=== PATIENT | male | born 1965 | race Caucasian/White ===

== ENCOUNTER 2017-12-11 11:19 | Inpatient (IN) | payer OTHER ==
[~2017-12-11] VITALS: Ht 193 cm; Wt 118.1 kg
[2017-12-11] MEDS ORDERED: VANCOMYCIN PER PHARMACY MC PRN (11:45)
[2017-12-11 11:54] LABS: BASO # 0.1 x10^3/uL (0.0-0.2); BASO % 1 % (0-3); EOS # 0.1 x10^3/uL (0.0-0.7); EOS % 0 % (0-3); HEMATOCRIT 40.7 % (39.0-53.0); HEMOGLOBIN 14.2 g/dL (13.0-17.5); LYMPH # 1.2 x10^3/uL (1.0-4.8); LYMPH % 8 % (24-48); MEAN CORPUSCULAR HEMOGLOBIN 31 pg (25-35); MEAN CORPUSCULAR HGB CONC 35 g/dL (31-37); MEAN CORPUSCULAR VOLUME 88 fL (79-100); MONO # 0.8 x10^3/uL (0.0-1.1); MONO % 5 % (0-9); NEUT # 12.9 x10^3uL (1.8-7.7); NEUT % 86 % (31-73); PLATELET COUNT 199 x10^3/uL (140-400); RED BLOOD COUNT 4.62 x10^6/uL (4.30-5.70); RED CELL DISTRIBUTION WIDTH 13.7 % (11.5-14.5)
--- NOTE | 2017-12-11 11:57 | PHYS DOC ---
Past Medical History Past Medical History: Diabetes-Type II, Hypothyroid, Other Additional Past Medical Histor: muscular dystrophy, restless leg syndrowm Past Surgical History: Other Additional Past Surgical Histo: eye surgeries, calf surgery, left shoulder surgery Additional Information: 1 ppd Alcohol Use: None Drug Use: None Adult General Chief Complaint Chief Complaint: HAND PROBLEM HPI HPI Patient is a 52 year old male who presents with states that yesterday he went to urgent care because a small red pimple-like bump popped up on his right ring finger and there was slight swelling. Patient states that urgent care stated that it was viral and told him to keep it covered. Patient stated that he awoke this morning with right hand swelling and redness all the way up the right ring finger and some swelling that goes up to his wrist slight redness. Patient states it is throbbing. Patient rates an 8 out of 10. Review of Systems Review of Systems Constitutional: Denies fever or chills [] Eyes: Denies change in visual acuity, redness, or eye pain [] HENT: Denies nasal congestion or sore throat [] Respiratory: Denies cough or shortness of breath [] Cardiovascular: No additional information not addressed in HPI [] GI: Denies abdominal pain, nausea, vomiting, bloody stools or diarrhea [] : Denies dysuria or hematuria [] Musculoskeletal: Denies back pain or joint pain [] Integument: Right ring finger wound, redness and swelling. Right hand to wrist swelling 3+. Denies rash or skin lesions [] Neurologic: Denies headache, focal weakness or sensory changes [] Endocrine: Denies polyuria or polydipsia [] All other systems were reviewed and found to be within normal limits, except as documented in this note. Current Medications Current Medications Current Medications Medications (Trade) Dose Ordered Sig/Zonia Start Time Stop Time Status Last Admin Dose Admin Fentanyl Citrate (Fentanyl 2ml Vial) 50 mcg 1X ONCE 12/11/17 12:15 12/11/17 12:34 DC 12/11/17 12:13 50 MCG Morphine Sulfate (Morphine Sulfate) 4 mg 1X ONCE 12/11/17 13:00 12/11/17 13:01 DC 12/11/17 12:59 4 MG Sodium Chloride 1,000 ml @ 1,000 mls/hr 1X ONCE 12/11/17 12:45 12/11/17 13:44 DC 12/11/17 12:59 1,000 MLS/HR Vancomycin HCl (Vanco Per Pharmacy) 1 each PRN DAILY PRN 12/11/17 11:45 UNV Vancomycin HCl 2 gm/Sodium Chloride 500 ml @ 250 mls/hr 1X ONCE 12/11/17 12:45 12/11/17 14:44 DC 12/11/17 13:11 250 MLS/HR Allergies Allergies Allergies Coded Allergies Type Severity Reaction Last Updated Verified No Known Drug Allergies 12/11/17 No Physical Exam Physical Exam Constitutional: Well developed, well nourished, no acute distress, non-toxic appearance. [] HENT: Normocephalic, atraumatic, bilateral external ears normal, oropharynx moist, no oral exudates, nose normal. [] Eyes: PERRLA, EOMI, conjunctiva normal, no discharge. [] Neck: Normal range of motion, no tenderness, supple, no stridor. [] Cardiovascular:Heart rate regular rhythm, no murmur [] Lungs & Thorax: Bilateral breath sounds clear to auscultation [] Abdomen: Bowel sounds normal, soft, no tenderness, no masses, no pulsatile masses. [] Skin: Warm, dry, Right hand erythema, no rash. [] Back: No tenderness, no CVA tenderness. [] Extremities: Right mid palm tenderness, no cyanosis, no clubbing, ROM not intact , Right hand to wrist 3+ edema. [] Neurologic: Alert and oriented X 3, normal motor function, normal sensory function, no focal deficits noted. [] Psychologic: Affect normal, judgement normal, mood normal. [] Current Patient Data Vital Signs Vital Signs Date Time Temp Pulse Resp B/P (MAP) Pulse Ox O2 Delivery O2 Flow Rate FiO2 12/11/17 12:59 18 96 Room Air 12/11/17 11:24 97.6 91 163/83 (109) 97.6 Lab Values Laboratory Tests Test 12/11/17 11:40 White Blood Count 15.0 x10^3/uL (4.0-11.0) H Red Blood Count 4.62 x10^6/uL (4.30-5.70) Hemoglobin 14.2 g/dL (13.0-17.5) Hematocrit 40.7 % (39.0-53.0) Mean Corpuscular Volume 88 fL (79-100) Mean Corpuscular Hemoglobin 31 pg (25-35) Mean Corpuscular Hemoglobin Concent 35 g/dL (31-37) Red Cell Distribution Width 13.7 % (11.5-14.5) Platelet Count 199 x10^3/uL (140-400) Neutrophils (%) (Auto) 86 % (31-73) H Lymphocytes (%) (Auto) 8 % (24-48) L Monocytes (%) (Auto) 5 % (0-9) Eosinophils (%) (Auto) 0 % (0-3) Basophils (%) (Auto) 1 % (0-3) Neutrophils # (Auto) 12.9 x10^3uL (1.8-7.7) H Lymphocytes # (Auto) 1.2 x10^3/uL (1.0-4.8) Monocytes # (Auto) 0.8 x10^3/uL (0.0-1.1) Eosinophils # (Auto) 0.1 x10^3/uL (0.0-0.7) Basophils # (Auto) 0.1 x10^3/uL (0.0-0.2) Segmented Neutrophils % 80 % (35-66) H Band Neutrophils % 8 % (0-9) Lymphocytes % 9 % (24-48) L Monocytes % 3 % (0-10) Platelet Estimate Adequate (ADEQUATE) Sodium Level 138 mmol/L (136-145) Potassium Level 3.4 mmol/L (3.5-5.1) L Chloride Level 100 mmol/L (98-107) Carbon Dioxide Level 29 mmol/L (21-32) Anion Gap 9 (6-14) Blood Urea Nitrogen 12 mg/dL (8-26) Creatinine 1.0 mg/dL (0.7-1.3) Estimated GFR (Cockcroft-Gault) 78.8 Glucose Level 217 mg/dL (70-99) H Lactic Acid Level 2.2 mmol/L (0.4-2.0) H Calcium Level 9.2 mg/dL (8.5-10.1) Laboratory Tests 12/11/17 11:40 Laboratory Tests 12/11/17 11:40 Microbiology 12/11/17 Blood Culture - Preliminary, Resulted NO GROWTH AFTER 4 DAYS EKG EKG [] Radiology/Procedures Radiology/Procedures [] Impressions: [facility] [address] [place] [address] IMAGING REPORT Signed PATIENT: LEAH VELIZ ACCOUNT: [id number] : 1965 LOCATION: ER AGE: 52 SEX: M EXAM STATUS: REG ER ORD. PHYSICIAN: JALEESA COOPER APRN REASON: INFECTION PROCEDURE: HAND RIGHT 3V EXAM: Right hand, 3 views. HISTORY: Swelling. COMPARISON: None. FINDINGS: 3 views of the right hand are obtained. There is soft tissue swelling involving the hand, primarily the ring finger. There is no fracture, dislocation or subluxation. No foreign body is seen. IMPRESSION: Right hand soft tissue swelling, primarily involving the ring finger. Electronically signed by: Leticia Townsend MD (12/11/2017 12:11 PM) [facility] DICTATED and SIGNED BY: LETICIA TOWNSEND MD DATE: 12/11/17 1211 Course & Med Decision Making Course & Med Decision Making Patient is a 52 year old male who presents with states that yesterday he went to urgent care because a small red pimple-like bump popped up on his right ring finger and there was slight swelling. Patient states that urgent care stated that it was viral and told him to keep it covered. Patient stated that he awoke this morning with right hand swelling and redness all the way up the right ring finger and some swelling that goes up to his wrist slight redness. Patient states it is throbbing. Patient rates an 8 out of 10. He states his last tetanus was 2 years ago. Patient cannot bend his third fourth or fifth finger due to swelling and pain. Patient's right ring finger is red and swollen and there is no drainage coming from the small puncture area on the finger where the bleeding first developed. Patient afebrile. Patient states the hand is throbbing and he does have pain with palpation to the mid palm. Radial pulses strong and present. She has no known drug allergies he is a diabetic. Patient has history of muscular dystrophy, diabetes, restless leg, hypothyroidism and some arthritis. He denies any nausea or vomiting. Patient denies any numbness or tingling in that hand. Blood cultures and blood work are sent and patient started on vancomycin IV. Hand xray shows Right hand soft tissue swelling, primarily involving the ring finger. Patient will be transferred to for suspected developing of flexor tenosynovitis. I called to have this patient transferred because we of suspected developing of flexor tenosynovitis. hand surgeon refused the patient and states that our Orthopedic doctor can handle this patient and if the patient truly has flexor tenosynovitis than we should not delay care and the patient should go to surgery. The patient is in extreme pain and has been given Fentanyl 50mcg and Morphine 4 mg. Patient is still in pain and Dr Roblero has ordered Ketamine for the patient. Dr Bucio has seen the patient in the ED. I have admitted the patient to Dr Moeller and consulted Infectious Disease. torri i saw and eval'd this patient. evidence of likely flexor tenosynovitis. as per above. [] Dragon Disclaimer Dragon Disclaimer This electronic medical record was generated, in whole or in part, using a voice recognition dictation system. Departure Departure Impression: Primary Impression: Cellulitis of hand Disposition: ADMITTED INPATIENT Admitting Physician: Xie. Pierce Condition: STABLE Referrals: NO PCP (PCP) JALEESA COOPER APRN Dec 11, 2017 11:57 TATI ROBLERO MD Dec 15, 2017 18:22
[2017-12-11 12:03] LABS: CALCIUM 9.2 mg/dL (8.5-10.1); GFR 78.8; POTASSIUM 3.4 mmol/L (3.5-5.1)
[2017-12-11] MEDS ORDERED: fentaNYL PF VIAL 100 MCG/2 ML VIAL IV ONE (12:15)
--- NOTE | 2017-12-11 12:15 | RAD ---
EXAM: Right hand, 3 views. HISTORY: Swelling. COMPARISON: None. FINDINGS: 3 views of the right hand are obtained. There is soft tissue swelling involving the hand, primarily the ring finger. There is no fracture, dislocation or subluxation. No foreign body is seen. IMPRESSION: Right hand soft tissue swelling, primarily involving the ring finger. Electronically signed by: Leticia Lira MD (12/11/2017 12:11 PM) [place] [id number]
[2017-12-11] MEDS ORDERED: VANCOMYCIN 2 GM in IV NORMAL SALINE 500ML BAG 500 ML IV ONE (12:45)
[2017-12-11] MEDS ORDERED: IV NORMAL SALINE 1000ML BAG 1,000 ML IV ONE (12:45)
[2017-12-11 12:53] LABS: % BANDS 8 % (0-9); % LYMPHS 9 % (24-48); % MONOS 3 % (0-10); % SEGS 80 % (35-66)
[2017-12-11 12:54] LABS: PLT ESTIMATE ADEQUATE (ADEQUATE)
[2017-12-11] MEDS ORDERED: MORPHINE SULFATE 4 MG/ML VIAL. IV ONE (13:00)
[2017-12-11] MEDS ORDERED: KETAMINE HCL 50 MG/5 ML SYRINGE IV ONE (13:45)
[2017-12-11] MEDS ORDERED: ONDANSETRON PF 4 MG/2 ML VIAL. IV PRN ×4 (14:00→16:30)
[2017-12-11] MEDS ORDERED: IV RINGERS,LACTATED 1000ML 1,000 ML IV SCH ×2 (14:06→16:16)
[2017-12-11] MEDS ORDERED: LABETALOL 20 MG/4 ML DISP.SYRIN. IVP PRN (14:15)
[2017-12-11] MEDS ORDERED: fentaNYL PF VIAL 100 MCG/2 ML VIAL IV PRN ×3 (14:15→16:30)
[2017-12-11] MEDS ORDERED: PIP/TAZO PER PHARMACY MC PRN (14:15)
[2017-12-11] MEDS ORDERED: VANCOMYCIN 2 GM in IV NORMAL SALINE 500ML BAG 500 ML IV SCH (14:15)
[2017-12-11] MEDS ORDERED: ACETAMINOPHEN 325 MG TABLET. PO PRN (14:15)
[2017-12-11] MEDS ORDERED: DEXTROSE 50% 25 GM / 50ML DISP.SYRIN. IV PRN (14:15)
[2017-12-11] MEDS ORDERED: MORPHINE SULFATE 2 MG/ML VIAL. IV PRN ×3 (14:15→16:30)
[2017-12-11] MEDS ORDERED: LIDOCAINE 1% PF 2 ML VIAL. ID PRN ×2 (14:15→16:30)
[2017-12-11] MEDS ORDERED: PROCHLORPERAZINE 10 MG/2 ML VIAL. IV PRN ×2 (14:15→16:30)
[2017-12-11] MEDS ORDERED: DOCUSATE SODIUM 100 MG CAPSULE. PO PRN (14:15)
--- NOTE | 2017-12-11 14:25 | PDOC1 ---
History and Physical Date of Admission Date of Admission 12/11/17 Identification/Chief Complaint Chief Complaint rt finger pain Source Source: Chart review, Patient History of Present Illness History of Present Illness HPI HPI Patient is a 52 year old male came to ER for right 4th finger pain for 1d. pt said [facility]. He noticed his rt ring finger had a small white pimple like bump yesterday. He used a lancet of glucometer to poke it. The finger was swollen, mild ,mild pain. He went to urgent care stated that it was viral and told him to keep it covered with topical abx. Today, he noticed the finger is much swollen and the palm is swollen too, red, fingers with burning pain tenderness. the pain is 8/10,. cannot move the finger. Denies fever, chills, sob, chest pain, N/V, diarrhea. has some superficial skin wound bl legs, getting better. Past Medical History Endocrine: Diabetes, Hypothyroidism Past Surgical History Past Surgical History eye surgeries, calf surgery, left shoulder surgery Family History Family History: Hypertension Social History Smoke: <1 pack per day ALCOHOL: occassional Drugs: None Current Problem List Problem List Problems Medical Problems: (1) Cellulitis of hand Status: Acute Current Medications Current Medications Current Medications Medications (Trade) Dose Ordered Sig/Zonia Start Time Stop Time Status Last Admin Dose Admin Fentanyl Citrate (Fentanyl 2ml Vial) 50 mcg PRN Q5MIN PRN 12/11/17 14:15 12/12/17 14:14 Hydromorphone HCl (Dilaudid) 0.5 mg PRN Q10MIN PRN 12/11/17 14:15 12/12/17 14:14 Ketamine HCl (Ketamine) 20 mg 1X ONCE 12/11/17 13:45 12/11/17 13:46 DC 12/11/17 13:58 20 MG Lidocaine HCl (Xylocaine-Mpf 1% 2ml Vial) 2 ml 1X PRN PRN 12/11/17 14:15 12/12/17 14:14 Morphine Sulfate (Morphine Sulfate) 1 mg PRN Q10MIN PRN 12/11/17 14:15 12/12/17 14:14 Ondansetron HCl (Zofran) 4 mg PRN Q6HRS PRN 12/11/17 14:15 12/12/17 14:14 Prochlorperazine Edisylate (Compazine) 5 mg PACU PRN PRN 12/11/17 14:15 12/12/17 14:14 Ringer's Solution 1,000 ml @ 30 mls/hr Q24H 12/11/17 14:06 12/12/17 02:05 Sodium Chloride 1,000 ml @ 80 mls/hr [id number] 12/11/17 14:30 12/12/17 14:29 Vancomycin HCl (Vanco Per Pharmacy) 1 each PRN DAILY PRN 12/11/17 11:45 UNV Vancomycin HCl 2 gm/Sodium Chloride 500 ml @ 250 mls/hr 1X ONCE 12/11/17 12:45 12/11/17 14:44 12/11/17 13:11 250 MLS/HR Allergies Allergies Allergies Coded Allergies Type Severity Reaction Last Updated Verified No Known Drug Allergies 12/11/17 No ROS Review of System CONSTITUTIONAL: No fever or chills EYES: No recent changes SKIN: No rash or itching CARDIOVASCULAR: No chest pain, syncope, palpitations, or edema RESPIRATORY: No SOB or cough GASTROINTESTINAL: No nausea, vomiting or abdominal pain NEUROLOGICAL: No headaches or weakness ENDOCRINE: No cold or heat intolerance GENITOURINARY: No urgency or frequency of urination MUSCULOSKELETAL: No back pain or joint pain LYMPHATICS: No enlarged lymph nodes PSYCHIATRIC: No anxiety or depression Physical Exam Physical Exam GEN.: No apparent distress. Alert and oriented. HEENT: Head is normocephalic, atraumatic NECK: Supple. LUNGS: Clear to auscultation. HEART: RRR, S1, S2 present. Peripheral pulses intact ABDOMEN: Soft, nontender. Positive bowel sounds. EXTREMITIES: Without any cyanosis. rt palm and the ring finger swollen, redness, severe tenderness. + pulse. cannot move the right 4th finger himself. NEUROLOGIC: Normal speech, normal tone PSYCHIATRIC: Normal affect, normal mood. SKIN: No ulcerations Vitals Vitals Vital Signs Date Time Temp Pulse Resp B/P (MAP) Pulse Ox O2 Delivery O2 Flow Rate FiO2 12/11/17 12:59 18 96 Room Air 12/11/17 11:24 97.6 91 163/83 (109) 97.6 Labs Labs Laboratory Tests Test 12/11/17 11:40 White Blood Count 15.0 x10^3/uL (4.0-11.0) Red Blood Count 4.62 x10^6/uL (4.30-5.70) Hemoglobin 14.2 g/dL (13.0-17.5) Hematocrit 40.7 % (39.0-53.0) Mean Corpuscular Volume 88 fL (79-100) Mean Corpuscular Hemoglobin 31 pg (25-35) Mean Corpuscular Hemoglobin Concent 35 g/dL (31-37) Red Cell Distribution Width 13.7 % (11.5-14.5) Platelet Count 199 x10^3/uL (140-400) Neutrophils (%) (Auto) 86 % (31-73) Lymphocytes (%) (Auto) 8 % (24-48) Monocytes (%) (Auto) 5 % (0-9) Eosinophils (%) (Auto) 0 % (0-3) Basophils (%) (Auto) 1 % (0-3) Neutrophils # (Auto) 12.9 x10^3uL (1.8-7.7) Lymphocytes # (Auto) 1.2 x10^3/uL (1.0-4.8) Monocytes # (Auto) 0.8 x10^3/uL (0.0-1.1) Eosinophils # (Auto) 0.1 x10^3/uL (0.0-0.7) Basophils # (Auto) 0.1 x10^3/uL (0.0-0.2) Segmented Neutrophils % 80 % (35-66) Band Neutrophils % 8 % (0-9) Lymphocytes % 9 % (24-48) Monocytes % 3 % (0-10) Platelet Estimate Adequate (ADEQUATE) Sodium Level 138 mmol/L (136-145) Potassium Level 3.4 mmol/L (3.5-5.1) Chloride Level 100 mmol/L (98-107) Carbon Dioxide Level 29 mmol/L (21-32) Anion Gap 9 (6-14) Blood Urea Nitrogen 12 mg/dL (8-26) Creatinine 1.0 mg/dL (0.7-1.3) Estimated GFR (Cockcroft-Gault) 78.8 Glucose Level 217 mg/dL (70-99) Lactic Acid Level 2.2 mmol/L (0.4-2.0) Calcium Level 9.2 mg/dL (8.5-10.1) Laboratory Tests Test 12/11/17 11:40 White Blood Count 15.0 x10^3/uL (4.0-11.0) Red Blood Count 4.62 x10^6/uL (4.30-5.70) Hemoglobin 14.2 g/dL (13.0-17.5) Hematocrit 40.7 % (39.0-53.0) Mean Corpuscular Volume 88 fL (79-100) Mean Corpuscular Hemoglobin 31 pg (25-35) Mean Corpuscular Hemoglobin Concent 35 g/dL (31-37) Red Cell Distribution Width 13.7 % (11.5-14.5) Platelet Count 199 x10^3/uL (140-400) Neutrophils (%) (Auto) 86 % (31-73) Lymphocytes (%) (Auto) 8 % (24-48) Monocytes (%) (Auto) 5 % (0-9) Eosinophils (%) (Auto) 0 % (0-3) Basophils (%) (Auto) 1 % (0-3) Neutrophils # (Auto) 12.9 x10^3uL (1.8-7.7) Lymphocytes # (Auto) 1.2 x10^3/uL (1.0-4.8) Monocytes # (Auto) 0.8 x10^3/uL (0.0-1.1) Eosinophils # (Auto) 0.1 x10^3/uL (0.0-0.7) Basophils # (Auto) 0.1 x10^3/uL (0.0-0.2) Segmented Neutrophils % 80 % (35-66) Band Neutrophils % 8 % (0-9) Lymphocytes % 9 % (24-48) Monocytes % 3 % (0-10) Platelet Estimate Adequate (ADEQUATE) Sodium Level 138 mmol/L (136-145) Potassium Level 3.4 mmol/L (3.5-5.1) Chloride Level 100 mmol/L (98-107) Carbon Dioxide Level 29 mmol/L (21-32) Anion Gap 9 (6-14) Blood Urea Nitrogen 12 mg/dL (8-26) Creatinine 1.0 mg/dL (0.7-1.3) Estimated GFR (Cockcroft-Gault) 78.8 Glucose Level 217 mg/dL (70-99) Lactic Acid Level 2.2 mmol/L (0.4-2.0) Calcium Level 9.2 mg/dL (8.5-10.1) VTE Prophylaxis Ordered VTE Prophylaxis Devices: Yes VTE Pharmacological Prophylaxi: No Assessment/Plan Assessment/Plan rt 4th finger cellulitis sepsis chronic hypokalemia dm2 hypothyroidism muscular dystrophy restless leg syndrome elevated lactate tobaccoism plan: RN in ER told me [facility] refused to take the pt. Dr. Sanchez will take pt to OR today. NPO IVF, REPLete K need verify home meds lantus 20u qhs for now, ssi labetolol prn for htn dvt ppx tmr if ok with sx pain control with both po and iv meds prn zeus garrett for now, fu bx, ID consult STEVEN BURNETTE MD Dec 11, 2017 14:25
[2017-12-11] MEDS ORDERED: IV NORMAL SALINE 1000ML BAG 1,000 ML IV SCH (14:30)
[2017-12-11] MEDS ORDERED: PIPERACILLIN/TAZOBACTAM 3.375 GM in IV NORMAL SALINE 50ML 50 ML IV ONE (14:45)
[2017-12-11] MEDS: HYDROmorphone 2 MG/ML VIAL IV PRN ×3 (14:56→20:00)
[2017-12-11] MEDS: VANCOMYCIN PER PHARMACY MC PRN ×2 (15:53→16:01)
[2017-12-11] MEDS ORDERED: METF850T8 PO (15:57)
[2017-12-11] MEDS ORDERED: LEVO100T5 PO (15:57)
[2017-12-11] MEDS ORDERED: GLIP5TAB10 PO (15:57)
[2017-12-11] MEDS ORDERED: HYDR25TA PO (15:57)
[2017-12-11] MEDS ORDERED: NPH,100V5 SQ (15:57)
[2017-12-11] MEDS ORDERED: MELO15TA23 PO (15:57)
[2017-12-11] MEDS ORDERED: CYCL10TA2 PO (15:57)
[2017-12-11] MEDS ORDERED: POTA10TA12 PO (15:57)
[2017-12-11] MEDS ORDERED: AMIT150T PO (15:57)
[2017-12-11] MEDS ORDERED: ATOR10TA60 PO ×2 (15:57)
[2017-12-11] MEDS ORDERED: ACET250T2 PO (15:57)
[2017-12-11] MEDS ORDERED: HYDR50TA PO (15:58)
[2017-12-11 16:00] VITALS: BP 132/74
[2017-12-11] MEDS ORDERED: HYDROmorphone 2 MG/ML VIAL IV PRN (16:30)
[2017-12-11] MEDS ORDERED: fentaNYL PF VIAL 100 MCG/2 ML VIAL ONE ×3 (16:44→18:58)
[2017-12-11] MEDS: fentaNYL PF VIAL 100 MCG/2 ML VIAL IV PRN ×4 (16:48→19:26)
[2017-12-11] MEDS: INSULIN LISPRO 300 UNITS/3 ML INSULN.PEN. SQ SCH (17:00)
[2017-12-11] MEDS ORDERED: MIDAZOLAM HCL/PF 2 MG/2 ML VIAL. ONE (17:19)
[2017-12-11] MEDS ORDERED: DEXAMETHASONE SOD PHOS 20 MG/5 ML VIAL. ONE (17:25)
[2017-12-11] MEDS ORDERED: KETOROLAC 30 MG/ML INJ FOR OR. INJ ONE (17:25)
[2017-12-11] MEDS ORDERED: LIDOCAINE 2% PF Vial for OR 5 ML VIAL. ONE (17:25)
[2017-12-11] MEDS ORDERED: PROPOFOL 20 ML IV ONE (17:25)
[2017-12-11] MEDS ORDERED: ONDANSETRON PF 4 MG/2 ML VIAL. ONE (17:25)
[2017-12-11] MEDS ORDERED: PIPERACILLIN/TAZOBACTAM 4.5 GM in IV NORMAL SALINE 100ML 100 ML IV SCH (18:00)
[2017-12-11] MEDS ORDERED: HYDROmorphone 2 MG/ML VIAL ONE (18:59)
[2017-12-11] MEDS ORDERED: PROCHLORPERAZINE 10 MG/2 ML VIAL. ONE (18:59)
[2017-12-11 20:15] VITALS: BP 124/72
[2017-12-11] MEDS: VANCOMYCIN 1.5 GM in IV NORMAL SALINE 500ML BAG 500 ML IV SCH (20:21)
[2017-12-11] MEDS: LACTOBACILLUS RHAMNOSUS GG 1 CAPSULE. PO SCH (20:21)
[2017-12-11] MEDS: oxyCODONE/APAP 5/325 1 TAB TABLET PO PRN (20:53)
[2017-12-11] MEDS ORDERED: INSULIN GLARGINE 300 UNITS/3 ML INSULN.PEN. SQ SCH (21:00)
--- NOTE | 2017-12-11 21:19 | PDOC4 ---
Operative Note Operative Note Date of surgery: 12/11/2017 Preoperative diagnosis: Right ring finger flexor tenosynovitis Postoperative diagnosis: Same Procedure procedure: Irrigation debridement right ring finger flexor tenosynovitis allograft surgeon: Fortunato Anesthesia: Gen. Estimated blood loss: Minimal Intraoperative cultures sent of purulent drainage from tendon sheath Complications: None Operative indications: Please see my detailed consultation note for his history and my explanation to the patient about the possible rapid spread of infection in the flexor tendon sheath and the need for urgent surgical treatment to explore and wash this area out with cultures and potentially leave it open somewhat with a drain. Possible additional procedures may be required due to the ongoing resolution the infection and he could possibly have scarring pain stiffness and difficulty with function due to damage sustained with the infection inside the tendon sheath. All his questions were answered he wishes to proceed with surgical evaluation and treatment Operative text: Patient was identified procedure verified patient placed in the supine position on the operating table. After adequate amounts of general anesthesia were administered the right upper extremity was prepped and draped in standard sterile fashion with a tourniquet on the upper arm which was not inflated. After timeout was performed patient procedure identified and verified , and incision was made over the distal palmar crease overlying the ring finger flexor tendon sheath. The tendon sheath was opened and purulent drainage was immediately expressed and cultured. I also made a diagonal incision leading from the original area where he reported the pimple toward the PIP joint and the distal flexor tendon sheath was likewise opened and noted to display purulent drainage as well thorough irrigation was carried out at both locations and a 5 Tamazight feeding tube was placed in the tendon sheath to further allow thorough irrigation throughout the extent of the affected tendon sheath. The feeding tube remained in place loose closure was obtained of both incisions with nylon suture sterile dressings were applied the feeding tube was controlled within the dressings Rudy wrap was applied. He was returned to recovery room in stable condition having tolerated procedure well MIRELA SALCIDO MD Dec 11, 2017 21:19
[2017-12-11] MEDS: NICOTINE POLACRILEX 2MG GUM PACKAGE of 12. BC PRN (22:22)
[2017-12-11] MEDS: MORPHINE SULFATE 4 MG/ML VIAL. IV PRN (22:33)
[2017-12-11] MEDS: PIPERACILLIN/TAZOBACTAM 3.375 GM in IV NORMAL SALINE 50ML 50 ML IV SCH (22:34)
[2017-12-11] MEDS ORDERED: LORazepam 1 MG TABLET PO PRN (22:45)
[2017-12-11 23:00] VITALS: BP 117/61
[2017-12-12] MEDS: MORPHINE SULFATE 4 MG/ML VIAL. IV PRN ×7 (00:38→20:20)
[2017-12-12] MEDS: traMADol 50 MG TABLET PO PRN ×2 (00:38→08:13)
[2017-12-12] MEDS: NICOTINE POLACRILEX 2MG GUM PACKAGE of 12. BC PRN ×4 (00:39→20:19)
[2017-12-12] MEDS: PIPERACILLIN/TAZOBACTAM 3.375 GM in IV NORMAL SALINE 50ML 50 ML IV SCH ×4 (02:15→20:19)
[2017-12-12 03:00] VITALS: BP 110/59
[2017-12-12] MEDS: VANCOMYCIN 1.5 GM in IV NORMAL SALINE 500ML BAG 500 ML IV SCH (04:32)
[2017-12-12] MEDS: oxyCODONE/APAP 5/325 1 TAB TABLET PO PRN ×3 (04:40→18:54)
[2017-12-12 06:26] LABS: BASO % 0 % (0-3); EOS % 0 % (0-3); HEMATOCRIT 38.3 % (39.0-53.0); HEMOGLOBIN 12.9 g/dL (13.0-17.5); LYMPH # 0.6 x10^3/uL (1.0-4.8); LYMPH % 5 % (24-48); MEAN CORPUSCULAR HEMOGLOBIN 30 pg (25-35); MEAN CORPUSCULAR HGB CONC 34 g/dL (31-37); MEAN CORPUSCULAR VOLUME 89 fL (79-100); MONO # 0.5 x10^3/uL (0.0-1.1); MONO % 4 % (0-9); NEUT # 10.5 x10^3uL (1.8-7.7); NEUT % 90 % (31-73); PLATELET COUNT 161 x10^3/uL (140-400); RED CELL DISTRIBUTION WIDTH 13.5 % (11.5-14.5); WHITE BLOOD COUNT 11.6 x10^3/uL (4.0-11.0)
[2017-12-12 06:36] LABS: CALCIUM 8.2 mg/dL (8.5-10.1); CREATININE 1.1 mg/dL (0.7-1.3); GFR 70.6; POTASSIUM 3.9 mmol/L (3.5-5.1)
[2017-12-12 07:00] VITALS: BP 125/73
[2017-12-12] MEDS: INSULIN LISPRO 300 UNITS/3 ML INSULN.PEN. SQ SCH ×3 (08:09→16:59)
[2017-12-12] MEDS: LACTOBACILLUS RHAMNOSUS GG 1 CAPSULE. PO SCH ×2 (08:12→20:19)
--- NOTE | 2017-12-12 08:45 | CONS ---
DATE OF CONSULTATION: 12/11/2017 REQUESTING PHYSICIAN: [facility]. REASON FOR CONSULTATION: Right hand infection. HISTORY OF PRESENT ILLNESS: The patient is a 52-year-old male who developed what seemed to be a pimple on his right ring finger volar aspect and had some swelling. He went to urgent care, who apparently stated that this was a viral condition and told him to keep it covered. He states that when he awoke this morning, he had more severe right hand swelling, redness all the way up his right ring finger, difficulty moving it and swelling in his wrist with severe pain about 8/10, throbbing in nature. He said that he popped the pimple with one of his diabetic lancets and some pus came out at the time. PAST MEDICAL HISTORY: Significant for type 2 diabetes, hypothyroidism, muscular dystrophy, restless legs. PAST SURGICAL HISTORY: Left shoulder surgery, surgery on one of his legs and previous eye surgery. ALLERGIES: He has no known drug allergies. MEDICATIONS: List is reviewed. SOCIAL HISTORY: Denies alcohol or drug use. He is a 1 pack per day smoker. REVIEW OF SYSTEMS: Denies any fever or chills. He does note the severe pain, stiffness, swelling in his finger; swelling in his right hand; and the drainage with rapidly increasing severe pain. PHYSICAL EXAMINATION: GENERAL: He is afebrile. EXTREMITIES: Examination of the right hand reveals severe swelling, nearly a sausage digit appearance of the right ring finger. He is very tender on palpation over the flexor tendon sheath even into the palm. He can fully move the remaining index, long and small fingers on the right hand, as well as his thumb. Severe pain with any movement of the ring finger, however, he does have an area that appears to be scabbed over, where he had poked on the volar ulnar aspect over the middle phalange. He has normal examination of the contralateral hand. No tenderness on palpation over the wrist. No clunk or instability. Full range of motion. Normal alignment of bilateral shoulders, elbows and wrists. IMAGING: X-rays of the right hand showed no evidence of any joint abnormality or osteomyelitis. Laboratory examination significant for a white blood cell count of 15. IMPRESSION: Right ring finger flexor tenosynovitis and right hand infection. TREATMENT PLAN: I went over with him that I planned surgery today as available in the operating room and explained that the tendon sheaths when infected can result in rapid spread of infection and I consider this an urgent matter; I therefore, kept him n.p.o. for later surgery and explained that while we will wash this area out, it may take a long time to resolve with antibiotics and helping the body deflate it off itself. In the meantime, he may have struggles with stiffness or scarring with the flexor tendon sheath due to the infectious damage, possibility of additional procedures as well. All his questions were answered. He wishes to proceed with surgical evaluation and treatment, which will again occur today. MIRELA SALCIDO MD DR: ANNAMARIE/jf JOB#: [id number] / [id number]
--- NOTE | 2017-12-12 09:25 | PDOC ---
Infectious Disease Note Vital Sign Vital Signs Vital Signs Date Time Temp Pulse Resp B/P (MAP) Pulse Ox O2 Delivery O2 Flow Rate FiO2 12/12/17 09:01 18 94 Room Air 8.0 12/12/17 07:00 97.9 75 125/73 (90) 97.9 Labs Lab Laboratory Tests Test 12/11/17 11:40 12/11/17 16:08 12/11/17 21:41 12/12/17 05:10 White Blood Count 15.0 x10^3/uL (4.0-11.0) 11.6 x10^3/uL (4.0-11.0) Red Blood Count 4.62 x10^6/uL (4.30-5.70) 4.30 x10^6/uL (4.30-5.70) Hemoglobin 14.2 g/dL (13.0-17.5) 12.9 g/dL (13.0-17.5) Hematocrit 40.7 % (39.0-53.0) 38.3 % (39.0-53.0) Mean Corpuscular Volume 88 fL (79-100) 89 fL (79-100) Mean Corpuscular Hemoglobin 31 pg (25-35) 30 pg (25-35) Mean Corpuscular Hemoglobin Concent 35 g/dL (31-37) 34 g/dL (31-37) Red Cell Distribution Width 13.7 % (11.5-14.5) 13.5 % (11.5-14.5) Platelet Count 199 x10^3/uL (140-400) 161 x10^3/uL (140-400) Neutrophils (%) (Auto) 86 % (31-73) 90 % (31-73) Lymphocytes (%) (Auto) 8 % (24-48) 5 % (24-48) Monocytes (%) (Auto) 5 % (0-9) 4 % (0-9) Eosinophils (%) (Auto) 0 % (0-3) 0 % (0-3) Basophils (%) (Auto) 1 % (0-3) 0 % (0-3) Neutrophils # (Auto) 12.9 x10^3uL (1.8-7.7) 10.5 x10^3uL (1.8-7.7) Lymphocytes # (Auto) 1.2 x10^3/uL (1.0-4.8) 0.6 x10^3/uL (1.0-4.8) Monocytes # (Auto) 0.8 x10^3/uL (0.0-1.1) 0.5 x10^3/uL (0.0-1.1) Eosinophils # (Auto) 0.1 x10^3/uL (0.0-0.7) 0.0 x10^3/uL (0.0-0.7) Basophils # (Auto) 0.1 x10^3/uL (0.0-0.2) 0.0 x10^3/uL (0.0-0.2) Segmented Neutrophils % 80 % (35-66) Band Neutrophils % 8 % (0-9) Lymphocytes % 9 % (24-48) Monocytes % 3 % (0-10) Platelet Estimate Adequate (ADEQUATE) Sodium Level 138 mmol/L (136-145) 140 mmol/L (136-145) Potassium Level 3.4 mmol/L (3.5-5.1) 3.9 mmol/L (3.5-5.1) Chloride Level 100 mmol/L (98-107) 104 mmol/L (98-107) Carbon Dioxide Level 29 mmol/L (21-32) 28 mmol/L (21-32) Anion Gap 9 (6-14) 8 (6-14) Blood Urea Nitrogen 12 mg/dL (8-26) 15 mg/dL (8-26) Creatinine 1.0 mg/dL (0.7-1.3) 1.1 mg/dL (0.7-1.3) Estimated GFR (Cockcroft-Gault) 78.8 70.6 Glucose Level 217 mg/dL (70-99) 138 mg/dL (70-99) Lactic Acid Level 2.2 mmol/L (0.4-2.0) Calcium Level 9.2 mg/dL (8.5-10.1) 8.2 mg/dL (8.5-10.1) Glucose (Fingerstick) 100 mg/dL (70-99) 285 mg/dL (70-99) Test 12/12/17 07:27 Glucose (Fingerstick) 140 mg/dL (70-99) Objective Assessment Right ringer finger tenosynovitis - s/p I and D 12/11 Leukocytosis better but did receive Dexamethasone 12/11 H/o MRSA Muscular dystrophy Plan Plan of Care Cont Zosyn D/c vanc and dose Zyvox. At risk for BRIA with high dose Vanc D/c Tramadol F/u labs and cults D/w Dr. Bucio Thank you # [id number] ROSA KNOX MD Dec 12, 2017 09:25
[2017-12-12 11:00] VITALS: BP 131/70
[2017-12-12] MEDS: LINEZOLID 600 MG TABLET PO SCH ×2 (11:10→20:19)
--- NOTE | 2017-12-12 11:58 | PDOC ---
PROGRESS NOTES Chief Complaint Chief Complaint rt 4th finger tenosynovitis s/p i an d on 12/11 sepsis chronic hypokalemia dm2 hypothyroidism muscular dystrophy restless leg syndrome elevated lactate tobaccoism plan: fu with ortho, ID pt required regular diet, ok for now given sugar not very high IVF decrease to 75cc/h, dc tmr cont home meds dc lantus 20u qhs for now, ssi, on glipizide labetolol prn for htn dvt ppx tmr if ok with sx pain control with both po and iv meds prn vanco, zosyn for now, fu bx, ID consulted, change to zyvox, and zosyn, fu cx. nicotine patch prn, gum prn. History of Present Illness History of Present Illness ROS: no fever, chills, sob or chest pain got i and d on 12/11 has a drain pain still, slightly better, but can more the finger now Vitals Vitals Vital Signs Date Time Temp Pulse Resp B/P (MAP) Pulse Ox O2 Delivery O2 Flow Rate FiO2 12/12/17 11:00 98.0 97 18 131/70 (90) 96 Room Air 98.0 12/12/17 10:28 8.0 Physical Exam Physical Exam rt hand has dressing on, drain, can move fingers, still tenderness. General: Alert, Oriented X3, Cooperative Heart: Regular rate, Normal S1, Normal S2 Lungs: Clear Abdomen: Normal bowel sounds, Soft Extremities: No clubbing, No cyanosis Skin: No rashes Labs LABS Laboratory Tests Test 12/11/17 16:08 12/11/17 21:41 12/12/17 05:10 12/12/17 07:27 Glucose (Fingerstick) 100 mg/dL (70-99) 285 mg/dL (70-99) 140 mg/dL (70-99) White Blood Count 11.6 x10^3/uL (4.0-11.0) Red Blood Count 4.30 x10^6/uL (4.30-5.70) Hemoglobin 12.9 g/dL (13.0-17.5) Hematocrit 38.3 % (39.0-53.0) Mean Corpuscular Volume 89 fL (79-100) Mean Corpuscular Hemoglobin 30 pg (25-35) Mean Corpuscular Hemoglobin Concent 34 g/dL (31-37) Red Cell Distribution Width 13.5 % (11.5-14.5) Platelet Count 161 x10^3/uL (140-400) Neutrophils (%) (Auto) 90 % (31-73) Lymphocytes (%) (Auto) 5 % (24-48) Monocytes (%) (Auto) 4 % (0-9) Eosinophils (%) (Auto) 0 % (0-3) Basophils (%) (Auto) 0 % (0-3) Neutrophils # (Auto) 10.5 x10^3uL (1.8-7.7) Lymphocytes # (Auto) 0.6 x10^3/uL (1.0-4.8) Monocytes # (Auto) 0.5 x10^3/uL (0.0-1.1) Eosinophils # (Auto) 0.0 x10^3/uL (0.0-0.7) Basophils # (Auto) 0.0 x10^3/uL (0.0-0.2) Sodium Level 140 mmol/L (136-145) Potassium Level 3.9 mmol/L (3.5-5.1) Chloride Level 104 mmol/L (98-107) Carbon Dioxide Level 28 mmol/L (21-32) Anion Gap 8 (6-14) Blood Urea Nitrogen 15 mg/dL (8-26) Creatinine 1.1 mg/dL (0.7-1.3) Estimated GFR (Cockcroft-Gault) 70.6 Glucose Level 138 mg/dL (70-99) Calcium Level 8.2 mg/dL (8.5-10.1) Assessment and Plan Assessmemt and Plan Problems Medical Problems: (1) Cellulitis of hand Status: Acute Comment Review of Relevant I have reviewed the following items chema (where applicable) has been applied. Labs Laboratory Tests Test 12/11/17 11:40 12/11/17 16:08 12/11/17 21:41 12/12/17 05:10 White Blood Count 15.0 x10^3/uL (4.0-11.0) 11.6 x10^3/uL (4.0-11.0) Red Blood Count 4.62 x10^6/uL (4.30-5.70) 4.30 x10^6/uL (4.30-5.70) Hemoglobin 14.2 g/dL (13.0-17.5) 12.9 g/dL (13.0-17.5) Hematocrit 40.7 % (39.0-53.0) 38.3 % (39.0-53.0) Mean Corpuscular Volume 88 fL (79-100) 89 fL (79-100) Mean Corpuscular Hemoglobin 31 pg (25-35) 30 pg (25-35) Mean Corpuscular Hemoglobin Concent 35 g/dL (31-37) 34 g/dL (31-37) Red Cell Distribution Width 13.7 % (11.5-14.5) 13.5 % (11.5-14.5) Platelet Count 199 x10^3/uL (140-400) 161 x10^3/uL (140-400) Neutrophils (%) (Auto) 86 % (31-73) 90 % (31-73) Lymphocytes (%) (Auto) 8 % (24-48) 5 % (24-48) Monocytes (%) (Auto) 5 % (0-9) 4 % (0-9) Eosinophils (%) (Auto) 0 % (0-3) 0 % (0-3) Basophils (%) (Auto) 1 % (0-3) 0 % (0-3) Neutrophils # (Auto) 12.9 x10^3uL (1.8-7.7) 10.5 x10^3uL (1.8-7.7) Lymphocytes # (Auto) 1.2 x10^3/uL (1.0-4.8) 0.6 x10^3/uL (1.0-4.8) Monocytes # (Auto) 0.8 x10^3/uL (0.0-1.1) 0.5 x10^3/uL (0.0-1.1) Eosinophils # (Auto) 0.1 x10^3/uL (0.0-0.7) 0.0 x10^3/uL (0.0-0.7) Basophils # (Auto) 0.1 x10^3/uL (0.0-0.2) 0.0 x10^3/uL (0.0-0.2) Segmented Neutrophils % 80 % (35-66) Band Neutrophils % 8 % (0-9) Lymphocytes % 9 % (24-48) Monocytes % 3 % (0-10) Platelet Estimate Adequate (ADEQUATE) Sodium Level 138 mmol/L (136-145) 140 mmol/L (136-145) Potassium Level 3.4 mmol/L (3.5-5.1) 3.9 mmol/L (3.5-5.1) Chloride Level 100 mmol/L (98-107) 104 mmol/L (98-107) Carbon Dioxide Level 29 mmol/L (21-32) 28 mmol/L (21-32) Anion Gap 9 (6-14) 8 (6-14) Blood Urea Nitrogen 12 mg/dL (8-26) 15 mg/dL (8-26) Creatinine 1.0 mg/dL (0.7-1.3) 1.1 mg/dL (0.7-1.3) Estimated GFR (Cockcroft-Gault) 78.8 70.6 Glucose Level 217 mg/dL (70-99) 138 mg/dL (70-99) Lactic Acid Level 2.2 mmol/L (0.4-2.0) Calcium Level 9.2 mg/dL (8.5-10.1) 8.2 mg/dL (8.5-10.1) Glucose (Fingerstick) 100 mg/dL (70-99) 285 mg/dL (70-99) Test 12/12/17 07:27 Glucose (Fingerstick) 140 mg/dL (70-99) Laboratory Tests Test 12/11/17 16:08 12/11/17 21:41 12/12/17 05:10 12/12/17 07:27 Glucose (Fingerstick) 100 mg/dL (70-99) 285 mg/dL (70-99) 140 mg/dL (70-99) White Blood Count 11.6 x10^3/uL (4.0-11.0) Red Blood Count 4.30 x10^6/uL (4.30-5.70) Hemoglobin 12.9 g/dL (13.0-17.5) Hematocrit 38.3 % (39.0-53.0) Mean Corpuscular Volume 89 fL (79-100) Mean Corpuscular Hemoglobin 30 pg (25-35) Mean Corpuscular Hemoglobin Concent 34 g/dL (31-37) Red Cell Distribution Width 13.5 % (11.5-14.5) Platelet Count 161 x10^3/uL (140-400) Neutrophils (%) (Auto) 90 % (31-73) Lymphocytes (%) (Auto) 5 % (24-48) Monocytes (%) (Auto) 4 % (0-9) Eosinophils (%) (Auto) 0 % (0-3) Basophils (%) (Auto) 0 % (0-3) Neutrophils # (Auto) 10.5 x10^3uL (1.8-7.7) Lymphocytes # (Auto) 0.6 x10^3/uL (1.0-4.8) Monocytes # (Auto) 0.5 x10^3/uL (0.0-1.1) Eosinophils # (Auto) 0.0 x10^3/uL (0.0-0.7) Basophils # (Auto) 0.0 x10^3/uL (0.0-0.2) Sodium Level 140 mmol/L (136-145) Potassium Level 3.9 mmol/L (3.5-5.1) Chloride Level 104 mmol/L (98-107) Carbon Dioxide Level 28 mmol/L (21-32) Anion Gap 8 (6-14) Blood Urea Nitrogen 15 mg/dL (8-26) Creatinine 1.1 mg/dL (0.7-1.3) Estimated GFR (Cockcroft-Gault) 70.6 Glucose Level 138 mg/dL (70-99) Calcium Level 8.2 mg/dL (8.5-10.1) Microbiology 12/11/17 Blood Culture - Preliminary, Resulted NO GROWTH AFTER 1 DAY Medications Current Medications Vancomycin HCl (Vanco Per Pharmacy) 1 each PRN DAILY PRN MC SEE COMMENTS; Start 12/11/17 at 11:45; Status UNV Fentanyl Citrate (Fentanyl 2ml Vial) 50 mcg 1X ONCE IV Last administered on at 12:13; Start 12/11/17 at 12:15; Stop 12/11/17 at 12:34; Status DC Vancomycin HCl 2 gm/Sodium Chloride 500 ml @ 250 mls/hr 1X ONCE IV Last administered on 12/11/17at 13:11; Start 12/11/17 at 12:45; Stop 12/11/17 at 14 :44; Status DC Sodium Chloride 1,000 ml @ 1,000 mls/hr 1X ONCE IV Last administered on 12/11at 12:59; Start 12/11/17 at 12:45; Stop 12/11/17 at 13:44; Status DC Morphine Sulfate (Morphine Sulfate) 4 mg 1X ONCE IV Last administered on 12/11at 12:59; Start 12/11/17 at 13:00; Stop 12/11/17 at 13:01; Status DC Ketamine HCl (Ketamine) 20 mg 1X ONCE IV Last administered on 12/11/17at 13:58 ; Start 12/11/17 at 13:45; Stop 12/11/17 at 13:46; Status DC Ondansetron HCl (Zofran) 4 mg PRN Q8HRS PRN IV NAUSEA/VOMITING; Start at 14:00; Stop 12/12/17 at 13:59 Morphine Sulfate (Morphine Sulfate) 4 mg PRN Q2HR PRN IV PAIN Last administered on 12/12/17at 10:27; Start 12/11/17 at 14:00; Stop 12/12/17 at 13 :59 Sodium Chloride 1,000 ml @ 80 mls/hr [id number] IV ; Start 12/11/17 at 14:30; Stop 12/11/17 at 20:30; Status DC Ondansetron HCl (Zofran) 4 mg PRN Q6HRS PRN IV NAUSEA/VOMITING; Start at 14:15; Stop 12/11/17 at 20:31; Status DC Fentanyl Citrate (Fentanyl 2ml Vial) 25 mcg PRN Q5MIN PRN IV MILD PAIN; Start 12/11/17 at 14:15; Stop 12/11/17 at 20:31; Status DC Fentanyl Citrate (Fentanyl 2ml Vial) 50 mcg PRN Q5MIN PRN IV MODERATE TO SEVERE PAIN Last administered on 12/11/17at 19:26; Start 12/11/17 at 14:15; Stop 12/11/17 at 20:31; Status DC Morphine Sulfate (Morphine Sulfate) 1 mg PRN Q10MIN PRN IV SEVERE PAIN; Start 12/11/17 at 14:15; Stop 12/11/17 at 20:31; Status DC Ringer's Solution 1,000 ml @ 30 mls/hr Q24H IV Last administered on at 16:32; Start 12/11/17 at 14:06; Stop 12/11/17 at 20:30; Status DC Lidocaine HCl (Xylocaine-Mpf 1% 2ml Vial) 2 ml 1X PRN PRN ID IV START; Start 12/11/17 at 14:15; Stop 12/11/17 at 20:31; Status DC Hydromorphone HCl (Dilaudid) 0.5 mg PRN Q10MIN PRN IV SEV PAIN, Second choice Last administered on 12/11/17at 20:00; Start 12/11/17 at 14:15; Stop 12/11/17 at 20:31; Status DC Prochlorperazine Edisylate (Compazine) 5 mg PACU PRN PRN IV NAUSEA, MRX1; Start 12/11/17 at 14:15; Stop 12/11/17 at 20:31; Status DC Acetaminophen (Tylenol) 650 mg PRN Q6HRS PRN PO FEVER; Start 12/11/17 at 14:15 Ondansetron HCl (Zofran) 4 mg PRN Q6HRS PRN IV NAUSEA/VOMITING Last administered on 12/11/17at 14:55; Start 12/11/17 at 14:15 Morphine Sulfate (Morphine Sulfate) 2 mg PRN Q2HR PRN IV MODERATE TO SEVERE PAIN; Start 12/11/17 at 14:15; Status UNV Tramadol HCl (Ultram) 50 mg PRN Q6HRS PRN PO MILD TO MODERATE PAIN Last administered on 12/12/17at 08:13; Start 12/11/17 at 14:15; Stop 12/12/17 at 09 :19; Status DC Docusate Sodium (Colace) 100 mg PRN DAILY PRN PO CONSTIPATION; Start 12/11/17 at 14:15 Labetalol HCl (Normodyne Iv Push) 20 mg PRN Q2HR PRN IVP HYPERTENSION, SEE COMMENTS; Start 12/11/17 at 14:15 Morphine Sulfate (Morphine Sulfate) 2 mg PRN Q2HR PRN IV MILD-MODERATE PAIN; Start 12/11/17 at 14:15 Morphine Sulfate (Morphine Sulfate) 4 mg PRN Q2HR PRN IV SEVERE PAIN; Start at 14:15 Oxycodone/ Acetaminophen (Percocet 5/325) 1 tab PRN Q4HRS PRN PO SEVERE PAIN Last administered on 12/12/17at 10:28; Start 12/11/17 at 14:15 Vancomycin HCl (Vanco Per Pharmacy) 1 each PRN DAILY PRN MC SEE COMMENTS Last administered on 12/11/17at 16:01; Start 12/11/17 at 14:15; Stop 12/12/17 at 09 :19; Status DC Vancomycin HCl 2 gm/Sodium Chloride 500 ml @ 250 mls/hr Q12H IV ; Start at 14:15; Status UNV Piperacillin Sod/ Tazobactam Sod 4.5 gm/Sodium Chloride 100 ml @ 200 mls/hr Q6HRS IV ; Start 12/11/17 at 18:00; Status UNV Piperacillin Sod/ Tazobactam Sod (Zosyn Per Pharmacy) 1 each PRN DAILY PRN MC SEE COMMENTS; Start 12/11/17 at 14:15 Insulin Human Lispro (HumaLOG) 0-9 UNITS TIDWMEALS SQ ; Start 12/11/17 at 17:00 Dextrose (Dextrose 50%-Water Syringe) 12.5 gm PRN Q15MIN PRN IV SEE COMMENTS; Start 12/11/17 at 14:15 Insulin Glargine (Lantus) 20 units QHS SQ Last administered on 12/11/17at 22:25 ; Start 12/11/17 at 21:00 Potassium Chloride/Sodium Chloride 1,000 ml @ 100 mls/hr Q10H IV Last administered on 12/11/17at 20:20; Start 12/11/17 at 16:00 Piperacillin Sod/ Tazobactam Sod 3.375 gm/Sodium Chloride 50 ml @ 100 mls/hr 1X ONCE IV Last administered on 12/11/17at 15:07; Start 12/11/17 at 14:45; Stop 12/11/17 at 15:14; Status DC Piperacillin Sod/ Tazobactam Sod 3.375 gm/Sodium Chloride 50 ml @ 100 mls/hr Q6HRS IV Last administered on 12/12/17at 07:32; Start 12/11/17 at 19:00 Vancomycin HCl 1.5 gm/Sodium Chloride 500 ml @ 250 mls/hr Q8H IV Last administered on 12/12/17at 04:32; Start 12/11/17 at 21:00; Stop 12/12/17 at 09 :19; Status DC Vancomycin HCl (Vancomycin Trough Level) 1 each 1X ONCE MC ; Start 12/12/17 at 12:30; Stop 12/12/17 at 12:30; Status DC Lactobacillus Rhamnosus (Culturelle) 1 cap BID PO Last administered on at 08:12; Start 12/11/17 at 21:00 Ondansetron HCl (Zofran) 4 mg PRN Q6HRS PRN IV NAUSEA/VOMITING; Start at 16:30; Stop 12/11/17 at 20:31; Status DC Fentanyl Citrate (Fentanyl 2ml Vial) 25 mcg PRN Q5MIN PRN IV MILD PAIN; Start 12/11/17 at 16:30; Stop 12/11/17 at 20:31; Status DC Fentanyl Citrate (Fentanyl 2ml Vial) 50 mcg PRN Q5MIN PRN IV MODERATE TO SEVERE PAIN; Start 12/11/17 at 16:30; Stop 12/11/17 at 20:31; Status DC Morphine Sulfate (Morphine Sulfate) 1 mg PRN Q10MIN PRN IV SEVERE PAIN; Start 12/11/17 at 16:30; Stop 12/11/17 at 20:31; Status DC Ringer's Solution 1,000 ml @ 30 mls/hr Q24H IV ; Start 12/11/17 at 16:16; Stop 12/11/17 at 20:30; Status DC Lidocaine HCl (Xylocaine-Mpf 1% 2ml Vial) 2 ml 1X PRN PRN ID IV START; Start 12/11/17 at 16:30; Stop 12/11/17 at 20:31; Status DC Hydromorphone HCl (Dilaudid) 0.5 mg PRN Q10MIN PRN IV SEV PAIN, Second choice; Start 12/11/17 at 16:30; Stop 12/11/17 at 20:31; Status DC Prochlorperazine Edisylate (Compazine) 5 mg PACU PRN PRN IV NAUSEA, MRX1; Start 12/11/17 at 16:30; Stop 12/11/17 at 20:31; Status DC Fentanyl Citrate (Fentanyl 2ml Vial) 100 mcg STK-MED ONCE .ROUTE ; Start at 16:44; Stop 12/11/17 at 16:45; Status DC Fentanyl Citrate (Fentanyl 2ml Vial) 100 mcg STK-MED ONCE .ROUTE ; Start at 17:19; Stop 12/11/17 at 17:20; Status DC Midazolam HCl (Versed) 2 mg STK-MED ONCE .ROUTE ; Start 12/11/17 at 17:19; Stop 12/11/17 at 17:20; Status DC Propofol 20 ml @ As Directed STK-MED ONCE IV ; Start 12/11/17 at 17:25; Stop 12/11/17 at 17:26; Status DC Dexamethasone Sodium Phosphate (Decadron) 20 mg STK-MED ONCE .ROUTE ; Start at 17:25; Stop 12/11/17 at 17:26; Status DC Ketorolac Tromethamine (Toradol For Or Only) 30 mg STK-MED ONCE INJ ; Start at 17:25; Stop 12/11/17 at 17:26; Status DC Lidocaine HCl (Lidocaine Pf 2% Vial) 5 ml STK-MED ONCE .ROUTE ; Start 12/11/17 at 17:25; Stop 12/11/17 at 17:26; Status DC Ondansetron HCl (Zofran) 4 mg STK-MED ONCE .ROUTE ; Start 12/11/17 at 17:25; Stop 12/11/17 at 17:26; Status DC Fentanyl Citrate (Fentanyl 2ml Vial) 100 mcg STK-MED ONCE .ROUTE ; Start at 18:58; Stop 12/11/17 at 18:59; Status DC Hydromorphone HCl (Dilaudid) 2 mg STK-MED ONCE .ROUTE ; Start 12/11/17 at 18:59 ; Stop 12/11/17 at 19:00; Status DC Prochlorperazine Edisylate (Compazine) 10 mg STK-MED ONCE .ROUTE ; Start at 18:59; Stop 12/11/17 at 19:00; Status DC Influenza Virus Vaccine (Afluria Trivalent 5216-2850 Syringe) 0.5 ml ONCE ONCE VAX IM Last administered on 12/12/17at 08:15; Start 12/12/17 at 09:00; Stop 12/12/17 at 09:01; Status DC Nicotine Polacrilex (Nicorette Gum) 1 each PRN Q1HR PRN BC SMOKING CESSATION Last administered on 12/12/17at 07:32; Start 12/11/17 at 22:15 Lorazepam (Ativan) 1 mg PRN Q6HRS PRN PO ANXIETY / AGITATION Last administered on 12/11/17at 22:49; Start 12/11/17 at 22:45 Linezolid (Zyvox) 600 mg BID PO Last administered on 12/12/17at 11:10; Start 12/12/17 at 10:00 Active Scripts Active Reported Hydroxyzine Hcl 50 Mg Tablet 50 Mg PO QHS Hydroxyzine Hcl 25 Mg Tablet 25 Mg PO TID Acetazolamide 250 Mg Tablet 250 Mg PO BID Novolin N (Nph, Human Insulin Isophane) 100 Unit/1 Ml Vial 40 Unit SQ BID Potassium Chloride 10 Meq Tab.sr.24h 10 Meq PO TID Meloxicam 15 Mg Tablet 15 Mg PO DAILY Cyclobenzaprine Hcl 10 Mg Tablet 10 Mg PO TID Levothyroxine Sodium 100 Mcg Tablet 1 Tab PO DAILY Metformin Hcl 850 Mg Tablet 850 Mg PO BIDWMEALS Glipizide 5 Mg Tablet 5 Mg PO DAILY Atorvastatin Calcium 10 Mg Tablet 10 Mg PO HS Amitriptyline Hcl 150 Mg Tablet 1 Tab PO QHS Vitals/I & O Vital Sign - Last 24 Hours 12/11/17 12/11/17 12/11/17 12/11/17 12:13 12:59 13:45 14:25 Pulse 94 94 Resp 20 18 20 20 B/P (MAP) 157/99 (118) 163/82 (109) Pulse Ox 99 96 99 99 O2 Delivery Room Air Room Air Room Air 12/11/17 12/11/17 12/11/17 12/11/17 14:56 15:00 16:00 16:18 Temp 97.8 98.4 97.8 98.4 Pulse 92 95 87 Resp 20 20 20 24 B/P (MAP) 142/91 (108) 132/74 (93) 152/75 Pulse Ox 95 98 99 99 O2 Delivery Room Air Room Air Room Air Room Air 12/11/17 12/11/17 12/11/17 10/16/18 16:48 17:05 18:38 18:45 Temp 99.4 99.4 Pulse 90 Resp 26 24 20 B/P (MAP) 152/57 Pulse Ox 100 98 99 O2 Delivery Room Air Room Air Simple Mask Mask O2 Flow Rate 8 8 12/11/17 12/11/17 12/11/17 12/11/17 18:53 19:06 19:08 19:23 Temp 99.4 99.4 99.4 99.4 Pulse 99 85 85 Resp 22 22 22 22 B/P (MAP) 117/75 137/73 126/5 Pulse Ox 98 100 100 94 O2 Delivery Simple Mask Simple Mask Simple Mask Room Air O2 Flow Rate 8.0 8.0 12/11/17 12/11/17 12/11/17 12/11/17 19:26 19:38 19:44 19:53 Temp 99.4 99.4 Pulse 94 94 Resp 20 22 B/P (MAP) 117/62 117/62 Pulse Ox 95 94 94 94 O2 Delivery Room Air Room Air Room Air Room Air 12/11/17 12/11/17 12/11/17 12/11/17 20:00 20:00 20:15 20:53 Temp 98.9 98.9 Pulse 84 Resp 22 20 B/P (MAP) 124/72 (89) Pulse Ox 94 92 O2 Delivery Room Air Room Air Room Air Room Air 12/11/17 12/11/17 12/12/17 12/12/17 22:33 23:00 00:38 00:38 Temp 98.2 98.2 Pulse 85 Resp 20 B/P (MAP) 117/61 (79) Pulse Ox 95 O2 Delivery Room Air Room Air Room Air Room Air 12/12/17 12/12/17 12/12/17 12/12/17 03:00 04:40 04:40 05:55 Temp 98.4 98.4 Pulse 80 Resp 20 B/P (MAP) 110/59 (76) Pulse Ox 93 O2 Delivery Room Air Room Air Room Air Room Air 12/12/17 12/12/17 12/12/17 12/12/17 07:00 08:13 08:13 09:01 Temp 97.9 97.9 Pulse 75 Resp 20 18 18 B/P (MAP) 125/73 (90) Pulse Ox 94 94 94 94 O2 Delivery Room Air Room Air Room Air O2 Flow Rate 8.0 8.0 8.0 12/12/17 12/12/17 12/12/17 12/12/17 09:01 10:27 10:28 10:57 Resp 18 18 18 18 Pulse Ox 94 94 O2 Delivery Room Air Room Air Room Air Room Air O2 Flow Rate 8.0 8.0 12/12/17 11:00 Temp 98.0 98.0 Pulse 97 Resp 18 B/P (MAP) 131/70 (90) Pulse Ox 96 O2 Delivery Room Air Intake and Output 12/11/17 12/11/17 12/12/17 15:00 23:00 07:00 Intake Total 1000 ml 3480 ml 1800 ml Balance 1000 ml 3480 ml 1800 ml STEVEN BURNETTE MD Dec 12, 2017 11:58
[2017-12-12] MEDS ORDERED: NICOTINE 14MG PATCH. TD PRN (12:00)
[2017-12-12] MEDS: CYCLOBENZAPRINE 10 MG TABLET. PO SCH ×2 (14:00→20:19)
[2017-12-12] MEDS: glipiZIDE 5 MG TABLET PO SCH (14:15)
[2017-12-12] MEDS: LEVOTHYROXINE 100 MCG TABLET PO SCH (14:15)
[2017-12-12] MEDS: MELOXICAM 7.5 MG TABLET PO SCH (14:16)
[2017-12-12] MEDS: acetaZOLAMIDE 250 MG TABLET. PO SCH ×2 (14:16→20:20)
[2017-12-12] MEDS: INSULIN GLARGINE 300 UNITS/3 ML INSULN.PEN. SQ SCH ×2 (14:28→20:25)
[2017-12-12 15:00] VITALS: BP 133/65
[2017-12-12] MEDS: hydrOXYzine PAMOATE 25 MG CAPSULE PO SCH ×2 (16:00→20:20)
--- NOTE | 2017-12-12 17:21 | PDOC ---
PROGRESS NOTES Subjective Subjective Problems overnight: Right ring finger still sore but better than yesterday Objective Vital Signs Vital Signs Date Time Temp Pulse Resp B/P (MAP) Pulse Ox O2 Delivery O2 Flow Rate FiO2 12/12/17 15:00 98.1 81 16 133/65 (87) 95 Room Air 98.1 12/12/17 11:28 8.0 Physical Exam He can flex and extend her ring finger minimally with a lot less pain than preoperatively. Dressing show some slight bloody drainage the feeding tube drain is still intact Labs Laboratory Tests Test 12/11/17 11:40 12/11/17 16:08 12/11/17 21:41 12/12/17 05:10 White Blood Count 15.0 x10^3/uL (4.0-11.0) 11.6 x10^3/uL (4.0-11.0) Red Blood Count 4.62 x10^6/uL (4.30-5.70) 4.30 x10^6/uL (4.30-5.70) Hemoglobin 14.2 g/dL (13.0-17.5) 12.9 g/dL (13.0-17.5) Hematocrit 40.7 % (39.0-53.0) 38.3 % (39.0-53.0) Mean Corpuscular Volume 88 fL (79-100) 89 fL (79-100) Mean Corpuscular Hemoglobin 31 pg (25-35) 30 pg (25-35) Mean Corpuscular Hemoglobin Concent 35 g/dL (31-37) 34 g/dL (31-37) Red Cell Distribution Width 13.7 % (11.5-14.5) 13.5 % (11.5-14.5) Platelet Count 199 x10^3/uL (140-400) 161 x10^3/uL (140-400) Neutrophils (%) (Auto) 86 % (31-73) 90 % (31-73) Lymphocytes (%) (Auto) 8 % (24-48) 5 % (24-48) Monocytes (%) (Auto) 5 % (0-9) 4 % (0-9) Eosinophils (%) (Auto) 0 % (0-3) 0 % (0-3) Basophils (%) (Auto) 1 % (0-3) 0 % (0-3) Neutrophils # (Auto) 12.9 x10^3uL (1.8-7.7) 10.5 x10^3uL (1.8-7.7) Lymphocytes # (Auto) 1.2 x10^3/uL (1.0-4.8) 0.6 x10^3/uL (1.0-4.8) Monocytes # (Auto) 0.8 x10^3/uL (0.0-1.1) 0.5 x10^3/uL (0.0-1.1) Eosinophils # (Auto) 0.1 x10^3/uL (0.0-0.7) 0.0 x10^3/uL (0.0-0.7) Basophils # (Auto) 0.1 x10^3/uL (0.0-0.2) 0.0 x10^3/uL (0.0-0.2) Segmented Neutrophils % 80 % (35-66) Band Neutrophils % 8 % (0-9) Lymphocytes % 9 % (24-48) Monocytes % 3 % (0-10) Platelet Estimate Adequate (ADEQUATE) Sodium Level 138 mmol/L (136-145) 140 mmol/L (136-145) Potassium Level 3.4 mmol/L (3.5-5.1) 3.9 mmol/L (3.5-5.1) Chloride Level 100 mmol/L (98-107) 104 mmol/L (98-107) Carbon Dioxide Level 29 mmol/L (21-32) 28 mmol/L (21-32) Anion Gap 9 (6-14) 8 (6-14) Blood Urea Nitrogen 12 mg/dL (8-26) 15 mg/dL (8-26) Creatinine 1.0 mg/dL (0.7-1.3) 1.1 mg/dL (0.7-1.3) Estimated GFR (Cockcroft-Gault) 78.8 70.6 Glucose Level 217 mg/dL (70-99) 138 mg/dL (70-99) Lactic Acid Level 2.2 mmol/L (0.4-2.0) Calcium Level 9.2 mg/dL (8.5-10.1) 8.2 mg/dL (8.5-10.1) Glucose (Fingerstick) 100 mg/dL (70-99) 285 mg/dL (70-99) Test 12/12/17 07:27 12/12/17 11:33 12/12/17 16:37 Glucose (Fingerstick) 140 mg/dL (70-99) 209 mg/dL (70-99) 64 mg/dL (70-99) Laboratory Tests Test 12/11/17 21:41 12/12/17 05:10 12/12/17 07:27 12/12/17 11:33 Glucose (Fingerstick) 285 mg/dL (70-99) 140 mg/dL (70-99) 209 mg/dL (70-99) White Blood Count 11.6 x10^3/uL (4.0-11.0) Red Blood Count 4.30 x10^6/uL (4.30-5.70) Hemoglobin 12.9 g/dL (13.0-17.5) Hematocrit 38.3 % (39.0-53.0) Mean Corpuscular Volume 89 fL (79-100) Mean Corpuscular Hemoglobin 30 pg (25-35) Mean Corpuscular Hemoglobin Concent 34 g/dL (31-37) Red Cell Distribution Width 13.5 % (11.5-14.5) Platelet Count 161 x10^3/uL (140-400) Neutrophils (%) (Auto) 90 % (31-73) Lymphocytes (%) (Auto) 5 % (24-48) Monocytes (%) (Auto) 4 % (0-9) Eosinophils (%) (Auto) 0 % (0-3) Basophils (%) (Auto) 0 % (0-3) Neutrophils # (Auto) 10.5 x10^3uL (1.8-7.7) Lymphocytes # (Auto) 0.6 x10^3/uL (1.0-4.8) Monocytes # (Auto) 0.5 x10^3/uL (0.0-1.1) Eosinophils # (Auto) 0.0 x10^3/uL (0.0-0.7) Basophils # (Auto) 0.0 x10^3/uL (0.0-0.2) Sodium Level 140 mmol/L (136-145) Potassium Level 3.9 mmol/L (3.5-5.1) Chloride Level 104 mmol/L (98-107) Carbon Dioxide Level 28 mmol/L (21-32) Anion Gap 8 (6-14) Blood Urea Nitrogen 15 mg/dL (8-26) Creatinine 1.1 mg/dL (0.7-1.3) Estimated GFR (Cockcroft-Gault) 70.6 Glucose Level 138 mg/dL (70-99) Calcium Level 8.2 mg/dL (8.5-10.1) Test 12/12/17 16:37 Glucose (Fingerstick) 64 mg/dL (70-99) Assessment Assessment POD# [1], S/P [irrigation and debridement flexor tenosynovitis] Plan Plan of Care Continue antibiotics I plan to keep the drain in a bit longer to allow more drainage and will likely use it once more for irrigation prior to removal MIRELA SALCIDO MD Dec 12, 2017 17:21
[2017-12-12 19:00] VITALS: BP 114/68
--- NOTE | 2017-12-12 19:24 | CONS ---
DATE OF CONSULTATION: 12/12/2017 LOCATION: The patient is in room 560. REQUESTING PHYSICIAN: Dr. Bucio. REASON FOR CONSULTATION: Ring finger flexor tenosynovitis. HISTORY OF PRESENT ILLNESS: The patient is a 52-year-old gentleman with history of muscular dystrophy as well as diabetes who states 2 days ago, he developed pain on his right third ring finger. He denies any trauma to the area. He states it increased in size and he went to urgent care. He told me the viral infection and to apply Bactroban and a Band-Aid. He did in it overtime increased in size, became more painful. He then lanced his finger with his diabetic vishal but nothing came out. He then presented to [facility] as things were somewhat worsening and becoming more swollen, redness and tracking up his finger. Denied any gross fevers, chills, sweats, but he did feel a little fatigued and no gross shortness of air and denies any rashes. He was admitted to the hospital and placed on Zosyn and vancomycin. He was taken to the operating room by Dr. Bucio on 12/11/2017 and underwent I and D. Cultures are currently pending. Currently, the patient states he is feeling better than yesterday. Denies any rashes, passing his urine okay, although at times, he does have to do self-catheterization. PAST MEDICAL HISTORY: Positive for type 2 diabetes, hypothyroidism, muscular dystrophy, restless legs, history of urinary retention with a previous longstanding Harris placement. Also history of previous UTI, history of ankle infection, history of MRSA. PAST SURGICAL HISTORY: Positive for left shoulder surgery, previous surgery on one of his legs for I and D and also previous eye surgery. REVIEW OF SYSTEMS: Otherwise negative except for mentioned above. ALLERGIES: No known drug allergies. SOCIAL HISTORY: No alcohol or drug use. He is a smoker. FAMILY HISTORY: Positive for hypertension. CURRENT MEDICATIONS: Include vancomycin, Zosyn. He is on tramadol. Did receive dexamethasone, Colace, insulin. Other meds are available and I have reviewed in the chart. PHYSICAL EXAMINATION: VITAL SIGNS: Afebrile, temperature 97.9, respiratory rate 18, blood pressure 125/73, satting 94% on room air. CONSTITUTIONAL: He is pleasant, cooperative, in no acute distress. He is lying in bed. HEENT: Pupils are normal conjunctivae. Oral cavity, pharynx is clear. NECK: Supple, no JVD. LUNGS: Clear to auscultation. HEART: S1, S2. ABDOMEN: Obese, soft, nontender, nondistended with positive bowel sounds. EXTREMITIES: Without clubbing, cyanosis. Trace edema. He has some scabbed wounds over his lower extremities. His right hand is postop, will be dressed. SKIN: Without signs of gross rash. NEUROLOGIC: Answers questions appropriately, moves all extremities. PSYCHIATRIC: Affect is pleasant. LABORATORY VALUES: On arrival, white count was 15, today 11.6; hemoglobin 12.9; platelets 161; neutrophils 90; lymphs are 5. Creatinine of 1.1, glucose of 138, lactic acid was elevated at 2.2. Hand x-ray has some soft tissue swelling around the ring finger. IMPRESSION: 1. Right ring finger tenosynovitis, status post incision and drainage on 12/11/2017. 2. Leukocytosis that is better, but did receive dexamethasone on 12/11/2017. 3. History of methicillin-resistant Staphylococcus aureus. 4. Muscular dystrophy. RECOMMENDATIONS: We will continue the Zosyn. We will discontinue his vancomycin, he is on 1.5 q.8h., questionable risk for acute kidney injury. We will dose Zyvox. We will discontinue the tramadol because of the Zyvox. We will follow up labs and cultures. Discussed with Dr. Bucio. Thank you for allowing me to participate in the patient's care. Should you have any questions, please do not hesitate to contact me. ROSA KNOX MD DR: CLAUDETTE/jf JOB#: [id number] / [id number]
[2017-12-12] MEDS: ATORVASTATIN CALCIUM 10 MG TABLET. PO SCH (20:19)
[2017-12-12] MEDS: AMITRIPTYLINE HCL 50 MG TABLET PO SCH (20:20)
[2017-12-12 23:59] VITALS: BP 93/62
[2017-12-13] MEDS: PIPERACILLIN/TAZOBACTAM 3.375 GM in IV NORMAL SALINE 50ML 50 ML IV SCH ×4 (00:30→18:41)
[2017-12-13 03:00] VITALS: BP 106/72
[2017-12-13 04:51] LABS: BASO % 0 % (0-3); EOS # 0.1 x10^3/uL (0.0-0.7); EOS % 1 % (0-3); HEMATOCRIT 40.6 % (39.0-53.0); HEMOGLOBIN 13.9 g/dL (13.0-17.5); LYMPH # 1.7 x10^3/uL (1.0-4.8); LYMPH % 16 % (24-48); MEAN CORPUSCULAR HEMOGLOBIN 31 pg (25-35); MEAN CORPUSCULAR HGB CONC 34 g/dL (31-37); MEAN CORPUSCULAR VOLUME 91 fL (79-100); MONO # 0.5 x10^3/uL (0.0-1.1); MONO % 5 % (0-9); NEUT # 8.2 x10^3uL (1.8-7.7); NEUT % 77 % (31-73); PLATELET COUNT 185 x10^3/uL (140-400); RED BLOOD COUNT 4.48 x10^6/uL (4.30-5.70); RED CELL DISTRIBUTION WIDTH 14.2 % (11.5-14.5); WHITE BLOOD COUNT 10.6 x10^3/uL (4.0-11.0)
[2017-12-13 05:37] LABS: CALCIUM 8.5 mg/dL (8.5-10.1); GFR 78.8; POTASSIUM 3.3 mmol/L (3.5-5.1)
[2017-12-13] MEDS: LEVOTHYROXINE 100 MCG TABLET PO SCH (05:50)
[2017-12-13] MEDS: hydrOXYzine PAMOATE 25 MG CAPSULE PO SCH ×4 (05:50→20:38)
[2017-12-13 07:00] VITALS: BP 99/52
[2017-12-13] MEDS: INSULIN LISPRO 300 UNITS/3 ML INSULN.PEN. SQ SCH ×3 (08:00→17:00)
[2017-12-13] MEDS: LACTOBACILLUS RHAMNOSUS GG 1 CAPSULE. PO SCH ×2 (08:49→20:38)
[2017-12-13] MEDS: CYCLOBENZAPRINE 10 MG TABLET. PO SCH ×3 (08:50→20:38)
[2017-12-13] MEDS: glipiZIDE 5 MG TABLET PO SCH (08:50)
[2017-12-13] MEDS: acetaZOLAMIDE 250 MG TABLET. PO SCH ×2 (08:50→20:38)
[2017-12-13] MEDS: LINEZOLID 600 MG TABLET PO SCH ×2 (08:51→20:38)
[2017-12-13] MEDS: MELOXICAM 7.5 MG TABLET PO SCH (08:51)
[2017-12-13] MEDS ORDERED: glipiZIDE 5 MG TABLET PO SCH (09:00)
--- NOTE | 2017-12-13 10:03 | PDOC ---
Infectious Disease Note Subjective Subjective Finger hurts and has some drainage No F/C/S/N/V/D/SOA/rash Eating some Vital Sign Vital Signs Vital Signs Date Time Temp Pulse Resp B/P (MAP) Pulse Ox O2 Delivery O2 Flow Rate FiO2 12/13/17 07:00 97.7 69 18 99/52 (68) 96 Room Air 97.7 12/12/17 11:28 8.0 Physical Exam PHYSICAL EXAM CONSTITUTIONAL: He is pleasant, cooperative, in no acute distress. He is sitting up in bed. HEENT: Pupils are equal. Left eye sight deviation normal conjunctivae. Oral cavity, pharynx is clear. NECK: Supple, no JVD. LUNGS: Clear to auscultation. HEART: S1, S2. ABDOMEN: Obese, soft, nontender, nondistended with positive bowel sounds. EXTREMITIES: Without clubbing, cyanosis. Trace edema. He has some scabbed wounds over his lower extremities. His right hand is postop dressed. Finger remains swollen. NVI with good cap refill. Drain in place and sutures intact. not cool but is tender. Moves all ext SKIN: Without signs of gross rash. NEUROLOGIC: Answers questions appropriately, moves all extremities. PSYCHIATRIC: Affect is pleasant. Labs Lab Laboratory Tests Test 12/12/17 11:33 12/12/17 16:37 12/12/17 20:24 12/13/17 04:10 Glucose (Fingerstick) 209 mg/dL (70-99) 64 mg/dL (70-99) 78 mg/dL (70-99) Sodium Level 142 mmol/L (136-145) Potassium Level 3.3 mmol/L (3.5-5.1) Chloride Level 107 mmol/L (98-107) Carbon Dioxide Level 26 mmol/L (21-32) Anion Gap 9 (6-14) Blood Urea Nitrogen 12 mg/dL (8-26) Creatinine 1.0 mg/dL (0.7-1.3) Estimated GFR (Cockcroft-Gault) 78.8 Glucose Level 158 mg/dL (70-99) Calcium Level 8.5 mg/dL (8.5-10.1) Test 12/13/17 04:20 White Blood Count 10.6 x10^3/uL (4.0-11.0) Red Blood Count 4.48 x10^6/uL (4.30-5.70) Hemoglobin 13.9 g/dL (13.0-17.5) Hematocrit 40.6 % (39.0-53.0) Mean Corpuscular Volume 91 fL (79-100) Mean Corpuscular Hemoglobin 31 pg (25-35) Mean Corpuscular Hemoglobin Concent 34 g/dL (31-37) Red Cell Distribution Width 14.2 % (11.5-14.5) Platelet Count 185 x10^3/uL (140-400) Neutrophils (%) (Auto) 77 % (31-73) Lymphocytes (%) (Auto) 16 % (24-48) Monocytes (%) (Auto) 5 % (0-9) Eosinophils (%) (Auto) 1 % (0-3) Basophils (%) (Auto) 0 % (0-3) Neutrophils # (Auto) 8.2 x10^3uL (1.8-7.7) Lymphocytes # (Auto) 1.7 x10^3/uL (1.0-4.8) Monocytes # (Auto) 0.5 x10^3/uL (0.0-1.1) Eosinophils # (Auto) 0.1 x10^3/uL (0.0-0.7) Basophils # (Auto) 0.0 x10^3/uL (0.0-0.2) Micro Microbiology 12/11/17 Blood Culture - Preliminary, Resulted NO GROWTH AFTER 1 DAY 12/11/17 Anaerobic/Aerobic Culture, Resulted Pending 12/11/17 Anaerobic Culture Result 1 (HELIO), Resulted Pending 12/11/17 Aerobic Culture, Resulted Pending 12/11/17 Aerobic Culture Result 1 (HELIO), Resulted Pending 12/11/17 Gram Stain - Final, Resulted 12/11/17 Gram Stain Result 1 (HELIO) - Final, Resulted 12/11/17 Gram Stain Result 2 (HELIO) - Final, Resulted Objective Assessment Right ringer finger tenosynovitis - s/p I and D 12/11 Leukocytosis better but did receive Dexamethasone 12/11 H/o MRSA Muscular dystrophy Plan Plan of Care Needs elevation - instructed how to elevate Cont Zosyn/Zyvox. At risk for BRIA with high dose Vanc F/u labs and cults D/w family ROSA KNOX MD Dec 13, 2017 10:03
[2017-12-13] MEDS: oxyCODONE/APAP 5/325 1 TAB TABLET PO PRN ×2 (10:44→20:39)
[2017-12-13 11:00] VITALS: BP 122/74
--- NOTE | 2017-12-13 13:38 | PDOC ---
PROGRESS NOTES Chief Complaint Chief Complaint rt 4th finger tenosynovitis s/p i an d on 12/11 sepsis chronic hypokalemia dm2 hypothyroidism muscular dystrophy restless leg syndrome elevated lactate tobaccoism plan: fu with ortho, ID pt required regular diet, ok for now given sugar not very high dc ivf cont home meds dc lantus 20u qhs for now, ssi, dc glipizide. dont know who used my name to give high dose lantus, dc. labetolol prn for htn dvt ppx tmr if ok with sx pain control with both po and iv meds prn vanco, zosyn for now, fu bx, ID consulted, change to zyvox, and zosyn, fu cx. nicotine patch prn, gum prn. replete K History of Present Illness History of Present Illness ROS: no fever, chills, sob or chest pain got i and d on 12/11 has a drain pain still, slightly better, but can more the finger now DONT know who used my name to order 40u bid lantus, pt had hypoglycemia yesterday afternoon. not taking glipizide daily at home Vitals Vitals Vital Signs Date Time Temp Pulse Resp B/P (MAP) Pulse Ox O2 Delivery O2 Flow Rate FiO2 12/13/17 11:44 Room Air 12/13/17 11:00 97.9 91 20 122/74 (90) 94 97.9 12/12/17 11:28 8.0 Physical Exam Physical Exam CONSTITUTIONAL: He is pleasant, cooperative, in no acute distress. He is sitting up in bed. HEENT: Pupils are equal. Left eye sight deviation normal conjunctivae. Oral cavity, pharynx is clear. NECK: Supple, no JVD. LUNGS: Clear to auscultation. HEART: S1, S2. ABDOMEN: Obese, soft, nontender, nondistended with positive bowel sounds. EXTREMITIES: Without clubbing, cyanosis. Trace edema. He has some scabbed wounds over his lower extremities. His right hand is postop dressed. Finger remains swollen. NVI with good cap refill. Drain in place and sutures intact. not cool but is tender. Moves all ext SKIN: Without signs of gross rash. NEUROLOGIC: Answers questions appropriately, moves all extremities. PSYCHIATRIC: Affect is pleasant. General: Alert, Oriented X3, Cooperative Heart: Regular rate, Normal S1, Normal S2 Lungs: Clear Abdomen: Normal bowel sounds, Soft Extremities: No clubbing, No cyanosis Skin: No rashes Labs LABS Laboratory Tests Test 12/12/17 16:37 12/12/17 20:24 12/13/17 04:10 12/13/17 04:20 Glucose (Fingerstick) 64 mg/dL (70-99) 78 mg/dL (70-99) Sodium Level 142 mmol/L (136-145) Potassium Level 3.3 mmol/L (3.5-5.1) Chloride Level 107 mmol/L (98-107) Carbon Dioxide Level 26 mmol/L (21-32) Anion Gap 9 (6-14) Blood Urea Nitrogen 12 mg/dL (8-26) Creatinine 1.0 mg/dL (0.7-1.3) Estimated GFR (Cockcroft-Gault) 78.8 Glucose Level 158 mg/dL (70-99) Calcium Level 8.5 mg/dL (8.5-10.1) White Blood Count 10.6 x10^3/uL (4.0-11.0) Red Blood Count 4.48 x10^6/uL (4.30-5.70) Hemoglobin 13.9 g/dL (13.0-17.5) Hematocrit 40.6 % (39.0-53.0) Mean Corpuscular Volume 91 fL (79-100) Mean Corpuscular Hemoglobin 31 pg (25-35) Mean Corpuscular Hemoglobin Concent 34 g/dL (31-37) Red Cell Distribution Width 14.2 % (11.5-14.5) Platelet Count 185 x10^3/uL (140-400) Neutrophils (%) (Auto) 77 % (31-73) Lymphocytes (%) (Auto) 16 % (24-48) Monocytes (%) (Auto) 5 % (0-9) Eosinophils (%) (Auto) 1 % (0-3) Basophils (%) (Auto) 0 % (0-3) Neutrophils # (Auto) 8.2 x10^3uL (1.8-7.7) Lymphocytes # (Auto) 1.7 x10^3/uL (1.0-4.8) Monocytes # (Auto) 0.5 x10^3/uL (0.0-1.1) Eosinophils # (Auto) 0.1 x10^3/uL (0.0-0.7) Basophils # (Auto) 0.0 x10^3/uL (0.0-0.2) Test 12/13/17 10:15 12/13/17 11:41 Glucose (Fingerstick) 235 mg/dL (70-99) 148 mg/dL (70-99) Assessment and Plan Assessmemt and Plan Problems Medical Problems: (1) Cellulitis of hand Status: Acute Comment Review of Relevant I have reviewed the following items chema (where applicable) has been applied. Labs Laboratory Tests Test 12/11/17 16:08 12/11/17 21:41 12/12/17 05:10 12/12/17 07:27 Glucose (Fingerstick) 100 mg/dL (70-99) 285 mg/dL (70-99) 140 mg/dL (70-99) White Blood Count 11.6 x10^3/uL (4.0-11.0) Red Blood Count 4.30 x10^6/uL (4.30-5.70) Hemoglobin 12.9 g/dL (13.0-17.5) Hematocrit 38.3 % (39.0-53.0) Mean Corpuscular Volume 89 fL (79-100) Mean Corpuscular Hemoglobin 30 pg (25-35) Mean Corpuscular Hemoglobin Concent 34 g/dL (31-37) Red Cell Distribution Width 13.5 % (11.5-14.5) Platelet Count 161 x10^3/uL (140-400) Neutrophils (%) (Auto) 90 % (31-73) Lymphocytes (%) (Auto) 5 % (24-48) Monocytes (%) (Auto) 4 % (0-9) Eosinophils (%) (Auto) 0 % (0-3) Basophils (%) (Auto) 0 % (0-3) Neutrophils # (Auto) 10.5 x10^3uL (1.8-7.7) Lymphocytes # (Auto) 0.6 x10^3/uL (1.0-4.8) Monocytes # (Auto) 0.5 x10^3/uL (0.0-1.1) Eosinophils # (Auto) 0.0 x10^3/uL (0.0-0.7) Basophils # (Auto) 0.0 x10^3/uL (0.0-0.2) Sodium Level 140 mmol/L (136-145) Potassium Level 3.9 mmol/L (3.5-5.1) Chloride Level 104 mmol/L (98-107) Carbon Dioxide Level 28 mmol/L (21-32) Anion Gap 8 (6-14) Blood Urea Nitrogen 15 mg/dL (8-26) Creatinine 1.1 mg/dL (0.7-1.3) Estimated GFR (Cockcroft-Gault) 70.6 Glucose Level 138 mg/dL (70-99) Calcium Level 8.2 mg/dL (8.5-10.1) Test 12/12/17 11:33 12/12/17 16:37 12/12/17 20:24 12/13/17 04:10 Glucose (Fingerstick) 209 mg/dL (70-99) 64 mg/dL (70-99) 78 mg/dL (70-99) Sodium Level 142 mmol/L (136-145) Potassium Level 3.3 mmol/L (3.5-5.1) Chloride Level 107 mmol/L (98-107) Carbon Dioxide Level 26 mmol/L (21-32) Anion Gap 9 (6-14) Blood Urea Nitrogen 12 mg/dL (8-26) Creatinine 1.0 mg/dL (0.7-1.3) Estimated GFR (Cockcroft-Gault) 78.8 Glucose Level 158 mg/dL (70-99) Calcium Level 8.5 mg/dL (8.5-10.1) Test 12/13/17 04:20 12/13/17 10:15 12/13/17 11:41 White Blood Count 10.6 x10^3/uL (4.0-11.0) Red Blood Count 4.48 x10^6/uL (4.30-5.70) Hemoglobin 13.9 g/dL (13.0-17.5) Hematocrit 40.6 % (39.0-53.0) Mean Corpuscular Volume 91 fL (79-100) Mean Corpuscular Hemoglobin 31 pg (25-35) Mean Corpuscular Hemoglobin Concent 34 g/dL (31-37) Red Cell Distribution Width 14.2 % (11.5-14.5) Platelet Count 185 x10^3/uL (140-400) Neutrophils (%) (Auto) 77 % (31-73) Lymphocytes (%) (Auto) 16 % (24-48) Monocytes (%) (Auto) 5 % (0-9) Eosinophils (%) (Auto) 1 % (0-3) Basophils (%) (Auto) 0 % (0-3) Neutrophils # (Auto) 8.2 x10^3uL (1.8-7.7) Lymphocytes # (Auto) 1.7 x10^3/uL (1.0-4.8) Monocytes # (Auto) 0.5 x10^3/uL (0.0-1.1) Eosinophils # (Auto) 0.1 x10^3/uL (0.0-0.7) Basophils # (Auto) 0.0 x10^3/uL (0.0-0.2) Glucose (Fingerstick) 235 mg/dL (70-99) 148 mg/dL (70-99) Laboratory Tests Test 12/12/17 16:37 12/12/17 20:24 12/13/17 04:10 12/13/17 04:20 Glucose (Fingerstick) 64 mg/dL (70-99) 78 mg/dL (70-99) Sodium Level 142 mmol/L (136-145) Potassium Level 3.3 mmol/L (3.5-5.1) Chloride Level 107 mmol/L (98-107) Carbon Dioxide Level 26 mmol/L (21-32) Anion Gap 9 (6-14) Blood Urea Nitrogen 12 mg/dL (8-26) Creatinine 1.0 mg/dL (0.7-1.3) Estimated GFR (Cockcroft-Gault) 78.8 Glucose Level 158 mg/dL (70-99) Calcium Level 8.5 mg/dL (8.5-10.1) White Blood Count 10.6 x10^3/uL (4.0-11.0) Red Blood Count 4.48 x10^6/uL (4.30-5.70) Hemoglobin 13.9 g/dL (13.0-17.5) Hematocrit 40.6 % (39.0-53.0) Mean Corpuscular Volume 91 fL (79-100) Mean Corpuscular Hemoglobin 31 pg (25-35) Mean Corpuscular Hemoglobin Concent 34 g/dL (31-37) Red Cell Distribution Width 14.2 % (11.5-14.5) Platelet Count 185 x10^3/uL (140-400) Neutrophils (%) (Auto) 77 % (31-73) Lymphocytes (%) (Auto) 16 % (24-48) Monocytes (%) (Auto) 5 % (0-9) Eosinophils (%) (Auto) 1 % (0-3) Basophils (%) (Auto) 0 % (0-3) Neutrophils # (Auto) 8.2 x10^3uL (1.8-7.7) Lymphocytes # (Auto) 1.7 x10^3/uL (1.0-4.8) Monocytes # (Auto) 0.5 x10^3/uL (0.0-1.1) Eosinophils # (Auto) 0.1 x10^3/uL (0.0-0.7) Basophils # (Auto) 0.0 x10^3/uL (0.0-0.2) Test 12/13/17 10:15 12/13/17 11:41 Glucose (Fingerstick) 235 mg/dL (70-99) 148 mg/dL (70-99) Microbiology 12/11/17 Blood Culture - Preliminary, Resulted NO GROWTH AFTER 2 DAYS 12/11/17 Anaerobic/Aerobic Culture, Resulted Pending 12/11/17 Anaerobic Culture Result 1 (HELIO), Resulted Pending 12/11/17 Aerobic Culture, Resulted Pending 12/11/17 Aerobic Culture Result 1 (HELIO), Resulted Pending 12/11/17 Gram Stain - Final, Resulted 12/11/17 Gram Stain Result 1 (HELIO) - Final, Resulted 12/11/17 Gram Stain Result 2 (HELIO) - Final, Resulted Medications Current Medications Vancomycin HCl (Vanco Per Pharmacy) 1 each PRN DAILY PRN MC SEE COMMENTS; Start 12/11/17 at 11:45; Status UNV Fentanyl Citrate (Fentanyl 2ml Vial) 50 mcg 1X ONCE IV Last administered on at 12:13; Start 12/11/17 at 12:15; Stop 12/11/17 at 12:34; Status DC Vancomycin HCl 2 gm/Sodium Chloride 500 ml @ 250 mls/hr 1X ONCE IV Last administered on 12/11/17at 13:11; Start 12/11/17 at 12:45; Stop 12/11/17 at 14 :44; Status DC Sodium Chloride 1,000 ml @ 1,000 mls/hr 1X ONCE IV Last administered on 12/11at 12:59; Start 12/11/17 at 12:45; Stop 12/11/17 at 13:44; Status DC Morphine Sulfate (Morphine Sulfate) 4 mg 1X ONCE IV Last administered on 12/11at 12:59; Start 12/11/17 at 13:00; Stop 12/11/17 at 13:01; Status DC Ketamine HCl (Ketamine) 20 mg 1X ONCE IV Last administered on 12/11/17at 13:58 ; Start 12/11/17 at 13:45; Stop 12/11/17 at 13:46; Status DC Ondansetron HCl (Zofran) 4 mg PRN Q8HRS PRN IV NAUSEA/VOMITING; Start at 14:00; Stop 12/12/17 at 13:41; Status DC Morphine Sulfate (Morphine Sulfate) 4 mg PRN Q2HR PRN IV PAIN Last administered on 12/12/17at 10:27; Start 12/11/17 at 14:00; Stop 12/12/17 at 13 :42; Status DC Sodium Chloride 1,000 ml @ 80 mls/hr [id number] IV ; Start 12/11/17 at 14:30; Stop 12/11/17 at 20:30; Status DC Ondansetron HCl (Zofran) 4 mg PRN Q6HRS PRN IV NAUSEA/VOMITING; Start at 14:15; Stop 12/11/17 at 20:31; Status DC Fentanyl Citrate (Fentanyl 2ml Vial) 25 mcg PRN Q5MIN PRN IV MILD PAIN; Start 12/11/17 at 14:15; Stop 12/11/17 at 20:31; Status DC Fentanyl Citrate (Fentanyl 2ml Vial) 50 mcg PRN Q5MIN PRN IV MODERATE TO SEVERE PAIN Last administered on 12/11/17at 19:26; Start 12/11/17 at 14:15; Stop 12/11/17 at 20:31; Status DC Morphine Sulfate (Morphine Sulfate) 1 mg PRN Q10MIN PRN IV SEVERE PAIN; Start 12/11/17 at 14:15; Stop 12/11/17 at 20:31; Status DC Ringer's Solution 1,000 ml @ 30 mls/hr Q24H IV Last administered on at 16:32; Start 12/11/17 at 14:06; Stop 12/11/17 at 20:30; Status DC Lidocaine HCl (Xylocaine-Mpf 1% 2ml Vial) 2 ml 1X PRN PRN ID IV START; Start 12/11/17 at 14:15; Stop 12/11/17 at 20:31; Status DC Hydromorphone HCl (Dilaudid) 0.5 mg PRN Q10MIN PRN IV SEV PAIN, Second choice Last administered on 12/11/17at 20:00; Start 12/11/17 at 14:15; Stop 12/11/17 at 20:31; Status DC Prochlorperazine Edisylate (Compazine) 5 mg PACU PRN PRN IV NAUSEA, MRX1; Start 12/11/17 at 14:15; Stop 12/11/17 at 20:31; Status DC Acetaminophen (Tylenol) 650 mg PRN Q6HRS PRN PO FEVER; Start 12/11/17 at 14:15 Ondansetron HCl (Zofran) 4 mg PRN Q6HRS PRN IV NAUSEA/VOMITING Last administered on 12/11/17at 14:55; Start 12/11/17 at 14:15 Morphine Sulfate (Morphine Sulfate) 2 mg PRN Q2HR PRN IV MODERATE TO SEVERE PAIN; Start 12/11/17 at 14:15; Status UNV Tramadol HCl (Ultram) 50 mg PRN Q6HRS PRN PO MILD TO MODERATE PAIN Last administered on 12/12/17at 08:13; Start 12/11/17 at 14:15; Stop 12/12/17 at 09 :19; Status DC Docusate Sodium (Colace) 100 mg PRN DAILY PRN PO CONSTIPATION; Start 12/11/17 at 14:15 Labetalol HCl (Normodyne Iv Push) 20 mg PRN Q2HR PRN IVP HYPERTENSION, SEE COMMENTS; Start 12/11/17 at 14:15 Morphine Sulfate (Morphine Sulfate) 2 mg PRN Q2HR PRN IV MILD-MODERATE PAIN; Start 12/11/17 at 14:15 Morphine Sulfate (Morphine Sulfate) 4 mg PRN Q2HR PRN IV SEVERE PAIN Last administered on 12/12/17at 20:20; Start 12/11/17 at 14:15 Oxycodone/ Acetaminophen (Percocet 5/325) 1 tab PRN Q4HRS PRN PO SEVERE PAIN Last administered on 12/13/17at 10:44; Start 12/11/17 at 14:15 Vancomycin HCl (Vanco Per Pharmacy) 1 each PRN DAILY PRN MC SEE COMMENTS Last administered on 12/11/17at 16:01; Start 12/11/17 at 14:15; Stop 12/12/17 at 09 :19; Status DC Vancomycin HCl 2 gm/Sodium Chloride 500 ml @ 250 mls/hr Q12H IV ; Start at 14:15; Status UNV Piperacillin Sod/ Tazobactam Sod 4.5 gm/Sodium Chloride 100 ml @ 200 mls/hr Q6HRS IV ; Start 12/11/17 at 18:00; Status UNV Piperacillin Sod/ Tazobactam Sod (Zosyn Per Pharmacy) 1 each PRN DAILY PRN MC SEE COMMENTS; Start 12/11/17 at 14:15 Insulin Human Lispro (HumaLOG) 0-9 UNITS TIDWMEALS SQ ; Start 12/11/17 at 17:00 Dextrose (Dextrose 50%-Water Syringe) 12.5 gm PRN Q15MIN PRN IV SEE COMMENTS; Start 12/11/17 at 14:15 Insulin Glargine (Lantus) 20 units QHS SQ Last administered on 12/11/17at 22:25 ; Start 12/11/17 at 21:00; Stop 12/12/17 at 11:55; Status DC Potassium Chloride/Sodium Chloride 1,000 ml @ 75 mls/hr [id number] IV Last administered on 12/13/17at 03:45; Start 12/11/17 at 16:00 Piperacillin Sod/ Tazobactam Sod 3.375 gm/Sodium Chloride 50 ml @ 100 mls/hr 1X ONCE IV Last administered on 12/11/17at 15:07; Start 12/11/17 at 14:45; Stop 12/11/17 at 15:14; Status DC Piperacillin Sod/ Tazobactam Sod 3.375 gm/Sodium Chloride 50 ml @ 100 mls/hr Q6HRS IV Last administered on 12/13/17at 13:06; Start 12/11/17 at 19:00 Vancomycin HCl 1.5 gm/Sodium Chloride 500 ml @ 250 mls/hr Q8H IV Last administered on 12/12/17at 04:32; Start 12/11/17 at 21:00; Stop 12/12/17 at 09 :19; Status DC Vancomycin HCl (Vancomycin Trough Level) 1 each 1X ONCE MC ; Start 12/12/17 at 12:30; Stop 12/12/17 at 12:30; Status DC Lactobacillus Rhamnosus (Culturelle) 1 cap BID PO Last administered on at 08:49; Start 12/11/17 at 21:00 Ondansetron HCl (Zofran) 4 mg PRN Q6HRS PRN IV NAUSEA/VOMITING; Start at 16:30; Stop 12/11/17 at 20:31; Status DC Fentanyl Citrate (Fentanyl 2ml Vial) 25 mcg PRN Q5MIN PRN IV MILD PAIN; Start 12/11/17 at 16:30; Stop 12/11/17 at 20:31; Status DC Fentanyl Citrate (Fentanyl 2ml Vial) 50 mcg PRN Q5MIN PRN IV MODERATE TO SEVERE PAIN; Start 12/11/17 at 16:30; Stop 12/11/17 at 20:31; Status DC Morphine Sulfate (Morphine Sulfate) 1 mg PRN Q10MIN PRN IV SEVERE PAIN; Start 12/11/17 at 16:30; Stop 12/11/17 at 20:31; Status DC Ringer's Solution 1,000 ml @ 30 mls/hr Q24H IV ; Start 12/11/17 at 16:16; Stop 12/11/17 at 20:30; Status DC Lidocaine HCl (Xylocaine-Mpf 1% 2ml Vial) 2 ml 1X PRN PRN ID IV START; Start 12/11/17 at 16:30; Stop 12/11/17 at 20:31; Status DC Hydromorphone HCl (Dilaudid) 0.5 mg PRN Q10MIN PRN IV SEV PAIN, Second choice; Start 12/11/17 at 16:30; Stop 12/11/17 at 20:31; Status DC Prochlorperazine Edisylate (Compazine) 5 mg PACU PRN PRN IV NAUSEA, MRX1; Start 12/11/17 at 16:30; Stop 12/11/17 at 20:31; Status DC Fentanyl Citrate (Fentanyl 2ml Vial) 100 mcg STK-MED ONCE .ROUTE ; Start at 16:44; Stop 12/11/17 at 16:45; Status DC Fentanyl Citrate (Fentanyl 2ml Vial) 100 mcg STK-MED ONCE .ROUTE ; Start at 17:19; Stop 12/11/17 at 17:20; Status DC Midazolam HCl (Versed) 2 mg STK-MED ONCE .ROUTE ; Start 12/11/17 at 17:19; Stop 12/11/17 at 17:20; Status DC Propofol 20 ml @ As Directed STK-MED ONCE IV ; Start 12/11/17 at 17:25; Stop 12/11/17 at 17:26; Status DC Dexamethasone Sodium Phosphate (Decadron) 20 mg STK-MED ONCE .ROUTE ; Start at 17:25; Stop 12/11/17 at 17:26; Status DC Ketorolac Tromethamine (Toradol For Or Only) 30 mg STK-MED ONCE INJ ; Start at 17:25; Stop 12/11/17 at 17:26; Status DC Lidocaine HCl (Lidocaine Pf 2% Vial) 5 ml STK-MED ONCE .ROUTE ; Start 12/11/17 at 17:25; Stop 12/11/17 at 17:26; Status DC Ondansetron HCl (Zofran) 4 mg STK-MED ONCE .ROUTE ; Start 12/11/17 at 17:25; Stop 12/11/17 at 17:26; Status DC Fentanyl Citrate (Fentanyl 2ml Vial) 100 mcg STK-MED ONCE .ROUTE ; Start at 18:58; Stop 12/11/17 at 18:59; Status DC Hydromorphone HCl (Dilaudid) 2 mg STK-MED ONCE .ROUTE ; Start 12/11/17 at 18:59 ; Stop 12/11/17 at 19:00; Status DC Prochlorperazine Edisylate (Compazine) 10 mg STK-MED ONCE .ROUTE ; Start at 18:59; Stop 12/11/17 at 19:00; Status DC Influenza Virus Vaccine (Afluria Trivalent [id number] Syringe) 0.5 ml ONCE ONCE VAX IM Last administered on 12/12/17at 08:15; Start 12/12/17 at 09:00; Stop 12/12/17 at 09:01; Status DC Nicotine Polacrilex (Nicorette Gum) 1 each PRN Q1HR PRN BC SMOKING CESSATION Last administered on 12/12/17at 20:19; Start 12/11/17 at 22:15 Lorazepam (Ativan) 1 mg PRN Q6HRS PRN PO ANXIETY / AGITATION Last administered on 12/11/17at 22:49; Start 12/11/17 at 22:45 Linezolid (Zyvox) 600 mg BID PO Last administered on 12/13/17at 08:51; Start 12/12/17 at 10:00 Acetazolamide (Diamox) 250 mg BID PO Last administered on 12/13/17at 08:50; Start 12/12/17 at 12:30 Atorvastatin Calcium (Lipitor) 10 mg HS PO Last administered on 12/12/17at 20: 19; Start 12/12/17 at 21:00 Cyclobenzaprine HCl (Flexeril) 10 mg TID PO Last administered on 12/13/17at 08: 50; Start 12/12/17 at 14:00 Glipizide (Glucotrol) 5 mg DAILY PO ; Start 12/13/17 at 09:00; Stop 12/13/17 at 09:00; Status DC Levothyroxine Sodium (Synthroid) 100 mcg DAILY06 PO Last administered on at 05:50; Start 12/12/17 at 12:30 Amitriptyline HCl (Elavil) 150 mg QHS PO Last administered on 12/12/17at 20:20 ; Start 12/12/17 at 21:00 Hydroxyzine Pamoate (Vistaril) 25 mg TID@0700,1100,1600 PO Last administered on 12/13/17at 05:50; Start 12/12/17 at 16:00 Hydroxyzine Pamoate (Vistaril) 50 mg QHS PO Last administered on 12/12/17at 20: 20; Start 12/12/17 at 21:00 Meloxicam (Mobic) 15 mg DAILY PO Last administered on 12/13/17at 08:51; Start 12/12/17 at 12:30 Insulin Glargine (Lantus) 40 units BID SQ Last administered on 12/12/17at 14:28 ; Start 12/12/17 at 12:30; Stop 12/13/17 at 09:07; Status DC Nicotine (Nicoderm Cq 14mg) 1 patch PRN DAILY PRN TD SMOKING CESSATION; Start 12/12/17 at 12:00 Glipizide (Glucotrol) 5 mg DAILY PO Last administered on 12/12/17at 14:15; Start 12/12/17 at 13:00; Stop 12/13/17 at 09:07; Status DC Insulin Glargine (Lantus) 20 units QHS SQ ; Start 12/13/17 at 21:00 Active Scripts Active Reported Hydroxyzine Hcl 50 Mg Tablet 50 Mg PO QHS Hydroxyzine Hcl 25 Mg Tablet 25 Mg PO TID Acetazolamide 250 Mg Tablet 250 Mg PO BID Novolin N (Nph, Human Insulin Isophane) 100 Unit/1 Ml Vial 40 Unit SQ BID Potassium Chloride 10 Meq Tab.sr.24h 10 Meq PO TID Meloxicam 15 Mg Tablet 15 Mg PO DAILY Cyclobenzaprine Hcl 10 Mg Tablet 10 Mg PO TID Levothyroxine Sodium 100 Mcg Tablet 1 Tab PO DAILY Metformin Hcl 850 Mg Tablet 850 Mg PO BIDWMEALS Glipizide 5 Mg Tablet 5 Mg PO DAILY Atorvastatin Calcium 10 Mg Tablet 10 Mg PO HS Amitriptyline Hcl 150 Mg Tablet 1 Tab PO QHS Vitals/I & O Vital Sign - Last 24 Hours 12/12/17 12/12/17 12/12/17 12/12/17 14:08 14:38 15:00 17:36 Temp 98.1 98.1 Pulse 81 Resp 18 18 16 18 B/P (MAP) 133/65 (87) Pulse Ox 95 O2 Delivery Room Air Room Air Room Air 12/12/17 12/12/17 12/12/17 12/12/17 18:54 19:00 20:00 20:20 Temp 98.6 98.6 Pulse 73 Resp 18 20 B/P (MAP) 114/68 (83) Pulse Ox 97 O2 Delivery Room Air Room Air Room Air 12/12/17 12/12/17 12/13/17 12/13/17 20:58 23:59 03:00 07:00 Temp 97.9 97.6 97.7 97.9 97.6 97.7 Pulse 66 71 69 Resp 16 18 18 B/P (MAP) 93/62 (72) 106/72 (83) 99/52 (68) Pulse Ox 93 97 96 O2 Delivery Room Air Room Air Room Air Room Air 12/13/17 12/13/17 12/13/17 10:44 11:00 11:44 Temp 97.9 97.9 Pulse 91 Resp 20 B/P (MAP) 122/74 (90) Pulse Ox 94 O2 Delivery Room Air Room Air Room Air Intake and Output 12/12/17 12/12/17 12/13/17 15:00 23:00 07:00 Intake Total 1550 ml 1400 ml Balance 1550 ml 1400 ml STEVEN BURNETTE MD Dec 13, 2017 13:38
[2017-12-13] MEDS ORDERED: POTASSIUM CHLORIDE 20 MEQ TABLET.ER. PO ONE (14:00)
[2017-12-13] MEDS: HEPARIN for SUB-Q USE 5,000 UNIT/ML VIAL. SQ SCH ×2 (14:26→20:46)
[2017-12-13 15:00] VITALS: BP 94/44
[2017-12-13] MEDS: MORPHINE SULFATE 2 MG/ML VIAL. IV PRN (18:42)
[2017-12-13 19:00] VITALS: BP 115/76
[2017-12-13] MEDS: ATORVASTATIN CALCIUM 10 MG TABLET. PO SCH (20:37)
[2017-12-13] MEDS: AMITRIPTYLINE HCL 50 MG TABLET PO SCH (20:38)
[2017-12-13] MEDS: NICOTINE POLACRILEX 2MG GUM PACKAGE of 12. BC PRN (20:47)
[2017-12-13] MEDS: INSULIN GLARGINE 300 UNITS/3 ML INSULN.PEN. SQ SCH (20:48)
--- NOTE | 2017-12-13 22:21 | PDOC ---
PROGRESS NOTES Subjective Subjective Problems overnight: Right ring finger has a bunch more sore and stiff than yesterday where he experienced good relief Objective Vital Signs Vital Signs Date Time Temp Pulse Resp B/P (MAP) Pulse Ox O2 Delivery O2 Flow Rate FiO2 12/13/17 21:39 16 98 Room Air 12/13/17 20:39 8.0 12/13/17 19:00 97.4 98 115/76 (89) 97.4 Physical Exam On examination the feeding tube that served as a drain is now out just a little maceration over his proximal incision fingers swollen up a bit more and he really does have quite a bit of pain with passive or active flexion of the finger or subsequent extension. Tenderness over the flexor tendon sheath as well nothing proceeding up into the palm or on the other flexor tendon sheaths Labs Laboratory Tests Test 12/12/17 05:10 12/12/17 07:27 12/12/17 11:33 12/12/17 16:37 White Blood Count 11.6 x10^3/uL (4.0-11.0) Red Blood Count 4.30 x10^6/uL (4.30-5.70) Hemoglobin 12.9 g/dL (13.0-17.5) Hematocrit 38.3 % (39.0-53.0) Mean Corpuscular Volume 89 fL (79-100) Mean Corpuscular Hemoglobin 30 pg (25-35) Mean Corpuscular Hemoglobin Concent 34 g/dL (31-37) Red Cell Distribution Width 13.5 % (11.5-14.5) Platelet Count 161 x10^3/uL (140-400) Neutrophils (%) (Auto) 90 % (31-73) Lymphocytes (%) (Auto) 5 % (24-48) Monocytes (%) (Auto) 4 % (0-9) Eosinophils (%) (Auto) 0 % (0-3) Basophils (%) (Auto) 0 % (0-3) Neutrophils # (Auto) 10.5 x10^3uL (1.8-7.7) Lymphocytes # (Auto) 0.6 x10^3/uL (1.0-4.8) Monocytes # (Auto) 0.5 x10^3/uL (0.0-1.1) Eosinophils # (Auto) 0.0 x10^3/uL (0.0-0.7) Basophils # (Auto) 0.0 x10^3/uL (0.0-0.2) Sodium Level 140 mmol/L (136-145) Potassium Level 3.9 mmol/L (3.5-5.1) Chloride Level 104 mmol/L (98-107) Carbon Dioxide Level 28 mmol/L (21-32) Anion Gap 8 (6-14) Blood Urea Nitrogen 15 mg/dL (8-26) Creatinine 1.1 mg/dL (0.7-1.3) Estimated GFR (Cockcroft-Gault) 70.6 Glucose Level 138 mg/dL (70-99) Calcium Level 8.2 mg/dL (8.5-10.1) Glucose (Fingerstick) 140 mg/dL (70-99) 209 mg/dL (70-99) 64 mg/dL (70-99) Test 12/12/17 20:24 12/13/17 04:10 12/13/17 04:20 12/13/17 10:15 Glucose (Fingerstick) 78 mg/dL (70-99) 235 mg/dL (70-99) Sodium Level 142 mmol/L (136-145) Potassium Level 3.3 mmol/L (3.5-5.1) Chloride Level 107 mmol/L (98-107) Carbon Dioxide Level 26 mmol/L (21-32) Anion Gap 9 (6-14) Blood Urea Nitrogen 12 mg/dL (8-26) Creatinine 1.0 mg/dL (0.7-1.3) Estimated GFR (Cockcroft-Gault) 78.8 Glucose Level 158 mg/dL (70-99) Calcium Level 8.5 mg/dL (8.5-10.1) White Blood Count 10.6 x10^3/uL (4.0-11.0) Red Blood Count 4.48 x10^6/uL (4.30-5.70) Hemoglobin 13.9 g/dL (13.0-17.5) Hematocrit 40.6 % (39.0-53.0) Mean Corpuscular Volume 91 fL (79-100) Mean Corpuscular Hemoglobin 31 pg (25-35) Mean Corpuscular Hemoglobin Concent 34 g/dL (31-37) Red Cell Distribution Width 14.2 % (11.5-14.5) Platelet Count 185 x10^3/uL (140-400) Neutrophils (%) (Auto) 77 % (31-73) Lymphocytes (%) (Auto) 16 % (24-48) Monocytes (%) (Auto) 5 % (0-9) Eosinophils (%) (Auto) 1 % (0-3) Basophils (%) (Auto) 0 % (0-3) Neutrophils # (Auto) 8.2 x10^3uL (1.8-7.7) Lymphocytes # (Auto) 1.7 x10^3/uL (1.0-4.8) Monocytes # (Auto) 0.5 x10^3/uL (0.0-1.1) Eosinophils # (Auto) 0.1 x10^3/uL (0.0-0.7) Basophils # (Auto) 0.0 x10^3/uL (0.0-0.2) Test 12/13/17 11:41 12/13/17 16:58 12/13/17 20:36 Glucose (Fingerstick) 148 mg/dL (70-99) 114 mg/dL (70-99) 125 mg/dL (70-99) Laboratory Tests Test 12/13/17 04:10 12/13/17 04:20 12/13/17 10:15 12/13/17 11:41 Sodium Level 142 mmol/L (136-145) Potassium Level 3.3 mmol/L (3.5-5.1) Chloride Level 107 mmol/L (98-107) Carbon Dioxide Level 26 mmol/L (21-32) Anion Gap 9 (6-14) Blood Urea Nitrogen 12 mg/dL (8-26) Creatinine 1.0 mg/dL (0.7-1.3) Estimated GFR (Cockcroft-Gault) 78.8 Glucose Level 158 mg/dL (70-99) Calcium Level 8.5 mg/dL (8.5-10.1) White Blood Count 10.6 x10^3/uL (4.0-11.0) Red Blood Count 4.48 x10^6/uL (4.30-5.70) Hemoglobin 13.9 g/dL (13.0-17.5) Hematocrit 40.6 % (39.0-53.0) Mean Corpuscular Volume 91 fL (79-100) Mean Corpuscular Hemoglobin 31 pg (25-35) Mean Corpuscular Hemoglobin Concent 34 g/dL (31-37) Red Cell Distribution Width 14.2 % (11.5-14.5) Platelet Count 185 x10^3/uL (140-400) Neutrophils (%) (Auto) 77 % (31-73) Lymphocytes (%) (Auto) 16 % (24-48) Monocytes (%) (Auto) 5 % (0-9) Eosinophils (%) (Auto) 1 % (0-3) Basophils (%) (Auto) 0 % (0-3) Neutrophils # (Auto) 8.2 x10^3uL (1.8-7.7) Lymphocytes # (Auto) 1.7 x10^3/uL (1.0-4.8) Monocytes # (Auto) 0.5 x10^3/uL (0.0-1.1) Eosinophils # (Auto) 0.1 x10^3/uL (0.0-0.7) Basophils # (Auto) 0.0 x10^3/uL (0.0-0.2) Glucose (Fingerstick) 235 mg/dL (70-99) 148 mg/dL (70-99) Test 12/13/17 16:58 12/13/17 20:36 Glucose (Fingerstick) 114 mg/dL (70-99) 125 mg/dL (70-99) Assessment Assessment POD# [2], S/P [irrigation debridement right ring finger flexor tenosynovitis] Plan Plan of Care Cultures are pending, he is more sore today and has signs of somewhat recurrent infection which is not entirely unexpected. I want to make plans to take him back to the operating room tomorrow which he has no problems with, we will make him nothing by mouth past midnight MIRELA SALCIDO MD Dec 13, 2017 22:21
[2017-12-13 23:00] VITALS: BP 111/72
[2017-12-14] MEDS: PIPERACILLIN/TAZOBACTAM 3.375 GM in IV NORMAL SALINE 50ML 50 ML IV SCH ×4 (00:07→20:11)
[2017-12-14 03:00] VITALS: BP 115/72
[2017-12-14 04:33] LABS: BASO % 0 % (0-3); EOS # 0.1 x10^3/uL (0.0-0.7); EOS % 2 % (0-3); HEMATOCRIT 38.1 % (39.0-53.0); LYMPH # 2.1 x10^3/uL (1.0-4.8); LYMPH % 29 % (24-48); MEAN CORPUSCULAR HEMOGLOBIN 31 pg (25-35); MEAN CORPUSCULAR HGB CONC 34 g/dL (31-37); MEAN CORPUSCULAR VOLUME 90 fL (79-100); MONO # 0.5 x10^3/uL (0.0-1.1); MONO % 7 % (0-9); NEUT # 4.6 x10^3uL (1.8-7.7); NEUT % 62 % (31-73); PLATELET COUNT 185 x10^3/uL (140-400); RED BLOOD COUNT 4.23 x10^6/uL (4.30-5.70); RED CELL DISTRIBUTION WIDTH 14.4 % (11.5-14.5); WHITE BLOOD COUNT 7.4 x10^3/uL (4.0-11.0)
[2017-12-14 04:52] LABS: CALCIUM 7.7 mg/dL (8.5-10.1); CREATININE 1.1 mg/dL (0.7-1.3); GFR 70.6; POTASSIUM 3.7 mmol/L (3.5-5.1)
[2017-12-14] MEDS: HEPARIN for SUB-Q USE 5,000 UNIT/ML VIAL. SQ SCH ×3 (05:17→21:32)
[2017-12-14] MEDS: LEVOTHYROXINE 100 MCG TABLET PO SCH ×2 (05:18→05:54)
[2017-12-14 07:00] VITALS: BP 117/77
[2017-12-14] MEDS: hydrOXYzine PAMOATE 25 MG CAPSULE PO SCH ×4 (07:00→21:30)
[2017-12-14] MEDS: INSULIN LISPRO 300 UNITS/3 ML INSULN.PEN. SQ SCH ×3 (08:00→17:00)
[2017-12-14] MEDS: LINEZOLID 600 MG TABLET PO SCH ×2 (09:00→21:30)
[2017-12-14] MEDS: LACTOBACILLUS RHAMNOSUS GG 1 CAPSULE. PO SCH ×2 (09:00→21:30)
[2017-12-14] MEDS: acetaZOLAMIDE 250 MG TABLET. PO SCH ×2 (09:00→21:30)
[2017-12-14] MEDS: CYCLOBENZAPRINE 10 MG TABLET. PO SCH ×3 (09:00→21:30)
[2017-12-14] MEDS: MELOXICAM 7.5 MG TABLET PO SCH (09:00)
[2017-12-14] MEDS: MORPHINE SULFATE 2 MG/ML VIAL. IV PRN (09:27)
[2017-12-14 11:00] VITALS: BP 122/75
--- NOTE | 2017-12-14 11:22 | PDOC ---
PROGRESS NOTES Chief Complaint Chief Complaint rt 4th finger tenosynovitis s/p i an d on 12/11 sepsis chronic hypokalemia dm2 hypothyroidism muscular dystrophy restless leg syndrome elevated lactate tobaccoism plan: fu with ortho, ID pt required regular diet, ok for now given sugar not very high cont home meds lantus 20u qhs for now, ssi, dc glipizide. labetolol prn for htn dvt ppx tmr if ok with sx pain control with both po and iv meds prn vanco, zosyn for now, fu bx, ID consulted, change to zyvox, and zosyn, fu cx. nicotine patch prn, gum prn. replete K another i and d with ortho today History of Present Illness History of Present Illness ROS: no fever, chills, sob or chest pain got i and d on 12/11 has a drain fell off night of 12/13, more finger pain and swelling today not taking glipizide daily at home not taking lantus 20u last night Vitals Vitals Vital Signs Date Time Temp Pulse Resp B/P (MAP) Pulse Ox O2 Delivery O2 Flow Rate FiO2 12/14/17 09:27 97 Room Air 8.0 12/14/17 07:00 97.3 76 18 117/77 (90) 97.3 Physical Exam Physical Exam CONSTITUTIONAL: He is pleasant, cooperative, in no acute distress. He is sitting up in bed. HEENT: Pupils are equal. Left eye sight deviation normal conjunctivae. Oral cavity, pharynx is clear. NECK: Supple, no JVD. LUNGS: Clear to auscultation. HEART: S1, S2. ABDOMEN: Obese, soft, nontender, nondistended with positive bowel sounds. EXTREMITIES: Without clubbing, cyanosis. Trace edema. He has some scabbed wounds over his lower extremities. His right hand is postop dressed. Finger remains swollen. NVI with good cap refill. Drain fell off. not cool but is tender. Moves all ext SKIN: Without signs of gross rash. NEUROLOGIC: Answers questions appropriately, moves all extremities. PSYCHIATRIC: Affect is pleasant. General: Alert, Oriented X3, Cooperative Heart: Regular rate, Normal S1, Normal S2 Lungs: Clear Abdomen: Normal bowel sounds, Soft Extremities: No clubbing, No cyanosis Skin: No rashes Labs LABS Laboratory Tests Test 12/13/17 11:41 12/13/17 16:58 12/13/17 20:36 12/14/17 04:05 Glucose (Fingerstick) 148 mg/dL (70-99) 114 mg/dL (70-99) 125 mg/dL (70-99) White Blood Count 7.4 x10^3/uL (4.0-11.0) Red Blood Count 4.23 x10^6/uL (4.30-5.70) Hemoglobin 13.0 g/dL (13.0-17.5) Hematocrit 38.1 % (39.0-53.0) Mean Corpuscular Volume 90 fL (79-100) Mean Corpuscular Hemoglobin 31 pg (25-35) Mean Corpuscular Hemoglobin Concent 34 g/dL (31-37) Red Cell Distribution Width 14.4 % (11.5-14.5) Platelet Count 185 x10^3/uL (140-400) Neutrophils (%) (Auto) 62 % (31-73) Lymphocytes (%) (Auto) 29 % (24-48) Monocytes (%) (Auto) 7 % (0-9) Eosinophils (%) (Auto) 2 % (0-3) Basophils (%) (Auto) 0 % (0-3) Neutrophils # (Auto) 4.6 x10^3uL (1.8-7.7) Lymphocytes # (Auto) 2.1 x10^3/uL (1.0-4.8) Monocytes # (Auto) 0.5 x10^3/uL (0.0-1.1) Eosinophils # (Auto) 0.1 x10^3/uL (0.0-0.7) Basophils # (Auto) 0.0 x10^3/uL (0.0-0.2) Sodium Level 146 mmol/L (136-145) Potassium Level 3.7 mmol/L (3.5-5.1) Chloride Level 112 mmol/L (98-107) Carbon Dioxide Level 21 mmol/L (21-32) Anion Gap 13 (6-14) Blood Urea Nitrogen 12 mg/dL (8-26) Creatinine 1.1 mg/dL (0.7-1.3) Estimated GFR (Cockcroft-Gault) 70.6 Glucose Level 129 mg/dL (70-99) Calcium Level 7.7 mg/dL (8.5-10.1) Assessment and Plan Assessmemt and Plan Problems Medical Problems: (1) Cellulitis of hand Status: Acute Comment Review of Relevant I have reviewed the following items chema (where applicable) has been applied. Labs Laboratory Tests Test 12/12/17 11:33 12/12/17 16:37 12/12/17 20:24 12/13/17 04:10 Glucose (Fingerstick) 209 mg/dL (70-99) 64 mg/dL (70-99) 78 mg/dL (70-99) Sodium Level 142 mmol/L (136-145) Potassium Level 3.3 mmol/L (3.5-5.1) Chloride Level 107 mmol/L (98-107) Carbon Dioxide Level 26 mmol/L (21-32) Anion Gap 9 (6-14) Blood Urea Nitrogen 12 mg/dL (8-26) Creatinine 1.0 mg/dL (0.7-1.3) Estimated GFR (Cockcroft-Gault) 78.8 Glucose Level 158 mg/dL (70-99) Calcium Level 8.5 mg/dL (8.5-10.1) Test 12/13/17 04:20 12/13/17 10:15 12/13/17 11:41 12/13/17 16:58 White Blood Count 10.6 x10^3/uL (4.0-11.0) Red Blood Count 4.48 x10^6/uL (4.30-5.70) Hemoglobin 13.9 g/dL (13.0-17.5) Hematocrit 40.6 % (39.0-53.0) Mean Corpuscular Volume 91 fL (79-100) Mean Corpuscular Hemoglobin 31 pg (25-35) Mean Corpuscular Hemoglobin Concent 34 g/dL (31-37) Red Cell Distribution Width 14.2 % (11.5-14.5) Platelet Count 185 x10^3/uL (140-400) Neutrophils (%) (Auto) 77 % (31-73) Lymphocytes (%) (Auto) 16 % (24-48) Monocytes (%) (Auto) 5 % (0-9) Eosinophils (%) (Auto) 1 % (0-3) Basophils (%) (Auto) 0 % (0-3) Neutrophils # (Auto) 8.2 x10^3uL (1.8-7.7) Lymphocytes # (Auto) 1.7 x10^3/uL (1.0-4.8) Monocytes # (Auto) 0.5 x10^3/uL (0.0-1.1) Eosinophils # (Auto) 0.1 x10^3/uL (0.0-0.7) Basophils # (Auto) 0.0 x10^3/uL (0.0-0.2) Glucose (Fingerstick) 235 mg/dL (70-99) 148 mg/dL (70-99) 114 mg/dL (70-99) Test 12/13/17 20:36 12/14/17 04:05 Glucose (Fingerstick) 125 mg/dL (70-99) White Blood Count 7.4 x10^3/uL (4.0-11.0) Red Blood Count 4.23 x10^6/uL (4.30-5.70) Hemoglobin 13.0 g/dL (13.0-17.5) Hematocrit 38.1 % (39.0-53.0) Mean Corpuscular Volume 90 fL (79-100) Mean Corpuscular Hemoglobin 31 pg (25-35) Mean Corpuscular Hemoglobin Concent 34 g/dL (31-37) Red Cell Distribution Width 14.4 % (11.5-14.5) Platelet Count 185 x10^3/uL (140-400) Neutrophils (%) (Auto) 62 % (31-73) Lymphocytes (%) (Auto) 29 % (24-48) Monocytes (%) (Auto) 7 % (0-9) Eosinophils (%) (Auto) 2 % (0-3) Basophils (%) (Auto) 0 % (0-3) Neutrophils # (Auto) 4.6 x10^3uL (1.8-7.7) Lymphocytes # (Auto) 2.1 x10^3/uL (1.0-4.8) Monocytes # (Auto) 0.5 x10^3/uL (0.0-1.1) Eosinophils # (Auto) 0.1 x10^3/uL (0.0-0.7) Basophils # (Auto) 0.0 x10^3/uL (0.0-0.2) Sodium Level 146 mmol/L (136-145) Potassium Level 3.7 mmol/L (3.5-5.1) Chloride Level 112 mmol/L (98-107) Carbon Dioxide Level 21 mmol/L (21-32) Anion Gap 13 (6-14) Blood Urea Nitrogen 12 mg/dL (8-26) Creatinine 1.1 mg/dL (0.7-1.3) Estimated GFR (Cockcroft-Gault) 70.6 Glucose Level 129 mg/dL (70-99) Calcium Level 7.7 mg/dL (8.5-10.1) Laboratory Tests Test 12/13/17 11:41 12/13/17 16:58 12/13/17 20:36 12/14/17 04:05 Glucose (Fingerstick) 148 mg/dL (70-99) 114 mg/dL (70-99) 125 mg/dL (70-99) White Blood Count 7.4 x10^3/uL (4.0-11.0) Red Blood Count 4.23 x10^6/uL (4.30-5.70) Hemoglobin 13.0 g/dL (13.0-17.5) Hematocrit 38.1 % (39.0-53.0) Mean Corpuscular Volume 90 fL (79-100) Mean Corpuscular Hemoglobin 31 pg (25-35) Mean Corpuscular Hemoglobin Concent 34 g/dL (31-37) Red Cell Distribution Width 14.4 % (11.5-14.5) Platelet Count 185 x10^3/uL (140-400) Neutrophils (%) (Auto) 62 % (31-73) Lymphocytes (%) (Auto) 29 % (24-48) Monocytes (%) (Auto) 7 % (0-9) Eosinophils (%) (Auto) 2 % (0-3) Basophils (%) (Auto) 0 % (0-3) Neutrophils # (Auto) 4.6 x10^3uL (1.8-7.7) Lymphocytes # (Auto) 2.1 x10^3/uL (1.0-4.8) Monocytes # (Auto) 0.5 x10^3/uL (0.0-1.1) Eosinophils # (Auto) 0.1 x10^3/uL (0.0-0.7) Basophils # (Auto) 0.0 x10^3/uL (0.0-0.2) Sodium Level 146 mmol/L (136-145) Potassium Level 3.7 mmol/L (3.5-5.1) Chloride Level 112 mmol/L (98-107) Carbon Dioxide Level 21 mmol/L (21-32) Anion Gap 13 (6-14) Blood Urea Nitrogen 12 mg/dL (8-26) Creatinine 1.1 mg/dL (0.7-1.3) Estimated GFR (Cockcroft-Gault) 70.6 Glucose Level 129 mg/dL (70-99) Calcium Level 7.7 mg/dL (8.5-10.1) Microbiology 12/11/17 Blood Culture - Preliminary, Resulted NO GROWTH AFTER 2 DAYS 12/11/17 Anaerobic/Aerobic Culture, Resulted Pending 12/11/17 Anaerobic Culture Result 1 (HELIO), Resulted Pending 12/11/17 Aerobic Culture, Resulted Pending 12/11/17 Aerobic Culture Result 1 (HELIO), Resulted Pending 12/11/17 Gram Stain - Final, Resulted 12/11/17 Gram Stain Result 1 (HELIO) - Final, Resulted 12/11/17 Gram Stain Result 2 (HELIO) - Final, Resulted Medications Current Medications Vancomycin HCl (Vanco Per Pharmacy) 1 each PRN DAILY PRN MC SEE COMMENTS; Start 12/11/17 at 11:45; Status UNV Fentanyl Citrate (Fentanyl 2ml Vial) 50 mcg 1X ONCE IV Last administered on at 12:13; Start 12/11/17 at 12:15; Stop 12/11/17 at 12:34; Status DC Vancomycin HCl 2 gm/Sodium Chloride 500 ml @ 250 mls/hr 1X ONCE IV Last administered on 12/11/17at 13:11; Start 12/11/17 at 12:45; Stop 12/11/17 at 14 :44; Status DC Sodium Chloride 1,000 ml @ 1,000 mls/hr 1X ONCE IV Last administered on 12/11at 12:59; Start 12/11/17 at 12:45; Stop 12/11/17 at 13:44; Status DC Morphine Sulfate (Morphine Sulfate) 4 mg 1X ONCE IV Last administered on 12/11at 12:59; Start 12/11/17 at 13:00; Stop 12/11/17 at 13:01; Status DC Ketamine HCl (Ketamine) 20 mg 1X ONCE IV Last administered on 12/11/17at 13:58 ; Start 12/11/17 at 13:45; Stop 12/11/17 at 13:46; Status DC Ondansetron HCl (Zofran) 4 mg PRN Q8HRS PRN IV NAUSEA/VOMITING; Start at 14:00; Stop 12/12/17 at 13:41; Status DC Morphine Sulfate (Morphine Sulfate) 4 mg PRN Q2HR PRN IV PAIN Last administered on 12/12/17at 10:27; Start 12/11/17 at 14:00; Stop 12/12/17 at 13 :42; Status DC Sodium Chloride 1,000 ml @ 80 mls/hr [id number] IV ; Start 12/11/17 at 14:30; Stop 12/11/17 at 20:30; Status DC Ondansetron HCl (Zofran) 4 mg PRN Q6HRS PRN IV NAUSEA/VOMITING; Start at 14:15; Stop 12/11/17 at 20:31; Status DC Fentanyl Citrate (Fentanyl 2ml Vial) 25 mcg PRN Q5MIN PRN IV MILD PAIN; Start 12/11/17 at 14:15; Stop 12/11/17 at 20:31; Status DC Fentanyl Citrate (Fentanyl 2ml Vial) 50 mcg PRN Q5MIN PRN IV MODERATE TO SEVERE PAIN Last administered on 12/11/17at 19:26; Start 12/11/17 at 14:15; Stop 12/11/17 at 20:31; Status DC Morphine Sulfate (Morphine Sulfate) 1 mg PRN Q10MIN PRN IV SEVERE PAIN; Start 12/11/17 at 14:15; Stop 12/11/17 at 20:31; Status DC Ringer's Solution 1,000 ml @ 30 mls/hr Q24H IV Last administered on at 16:32; Start 12/11/17 at 14:06; Stop 12/11/17 at 20:30; Status DC Lidocaine HCl (Xylocaine-Mpf 1% 2ml Vial) 2 ml 1X PRN PRN ID IV START; Start 12/11/17 at 14:15; Stop 12/11/17 at 20:31; Status DC Hydromorphone HCl (Dilaudid) 0.5 mg PRN Q10MIN PRN IV SEV PAIN, Second choice Last administered on 12/11/17at 20:00; Start 12/11/17 at 14:15; Stop 12/11/17 at 20:31; Status DC Prochlorperazine Edisylate (Compazine) 5 mg PACU PRN PRN IV NAUSEA, MRX1; Start 12/11/17 at 14:15; Stop 12/11/17 at 20:31; Status DC Acetaminophen (Tylenol) 650 mg PRN Q6HRS PRN PO FEVER; Start 12/11/17 at 14:15 Ondansetron HCl (Zofran) 4 mg PRN Q6HRS PRN IV NAUSEA/VOMITING Last administered on 12/11/17at 14:55; Start 12/11/17 at 14:15 Morphine Sulfate (Morphine Sulfate) 2 mg PRN Q2HR PRN IV MODERATE TO SEVERE PAIN; Start 12/11/17 at 14:15; Status UNV Tramadol HCl (Ultram) 50 mg PRN Q6HRS PRN PO MILD TO MODERATE PAIN Last administered on 12/12/17at 08:13; Start 12/11/17 at 14:15; Stop 12/12/17 at 09 :19; Status DC Docusate Sodium (Colace) 100 mg PRN DAILY PRN PO CONSTIPATION; Start 12/11/17 at 14:15 Labetalol HCl (Normodyne Iv Push) 20 mg PRN Q2HR PRN IVP HYPERTENSION, SEE COMMENTS; Start 12/11/17 at 14:15 Morphine Sulfate (Morphine Sulfate) 2 mg PRN Q2HR PRN IV MILD-MODERATE PAIN Last administered on 12/14/17at 09:27; Start 12/11/17 at 14:15 Morphine Sulfate (Morphine Sulfate) 4 mg PRN Q2HR PRN IV SEVERE PAIN Last administered on 12/12/17at 20:20; Start 12/11/17 at 14:15 Oxycodone/ Acetaminophen (Percocet 5/325) 1 tab PRN Q4HRS PRN PO PAIN Last administered on 12/13/17at 20:39; Start 12/11/17 at 14:15 Vancomycin HCl (Vanco Per Pharmacy) 1 each PRN DAILY PRN MC SEE COMMENTS Last administered on 12/11/17at 16:01; Start 12/11/17 at 14:15; Stop 12/12/17 at 09 :19; Status DC Vancomycin HCl 2 gm/Sodium Chloride 500 ml @ 250 mls/hr Q12H IV ; Start at 14:15; Status UNV Piperacillin Sod/ Tazobactam Sod 4.5 gm/Sodium Chloride 100 ml @ 200 mls/hr Q6HRS IV ; Start 12/11/17 at 18:00; Status UNV Piperacillin Sod/ Tazobactam Sod (Zosyn Per Pharmacy) 1 each PRN DAILY PRN MC SEE COMMENTS; Start 12/11/17 at 14:15 Insulin Human Lispro (HumaLOG) 0-9 UNITS TIDWMEALS SQ ; Start 12/11/17 at 17:00 Dextrose (Dextrose 50%-Water Syringe) 12.5 gm PRN Q15MIN PRN IV SEE COMMENTS; Start 12/11/17 at 14:15 Insulin Glargine (Lantus) 20 units QHS SQ Last administered on 12/11/17at 22:25 ; Start 12/11/17 at 21:00; Stop 12/12/17 at 11:55; Status DC Potassium Chloride/Sodium Chloride 1,000 ml @ 75 mls/hr [id number] IV Last administered on 12/13/17at 03:45; Start 12/11/17 at 16:00; Stop 12/13/17 at 13 :37; Status DC Piperacillin Sod/ Tazobactam Sod 3.375 gm/Sodium Chloride 50 ml @ 100 mls/hr 1X ONCE IV Last administered on 12/11/17at 15:07; Start 12/11/17 at 14:45; Stop 12/11/17 at 15:14; Status DC Piperacillin Sod/ Tazobactam Sod 3.375 gm/Sodium Chloride 50 ml @ 100 mls/hr Q6HRS IV Last administered on 12/14/17at 05:18; Start 12/11/17 at 19:00 Vancomycin HCl 1.5 gm/Sodium Chloride 500 ml @ 250 mls/hr Q8H IV Last administered on 12/12/17at 04:32; Start 12/11/17 at 21:00; Stop 12/12/17 at 09 :19; Status DC Vancomycin HCl (Vancomycin Trough Level) 1 each 1X ONCE MC ; Start 12/12/17 at 12:30; Stop 12/12/17 at 12:30; Status DC Lactobacillus Rhamnosus (Culturelle) 1 cap BID PO Last administered on at 20:38; Start 12/11/17 at 21:00 Ondansetron HCl (Zofran) 4 mg PRN Q6HRS PRN IV NAUSEA/VOMITING; Start at 16:30; Stop 12/11/17 at 20:31; Status DC Fentanyl Citrate (Fentanyl 2ml Vial) 25 mcg PRN Q5MIN PRN IV MILD PAIN; Start 12/11/17 at 16:30; Stop 12/11/17 at 20:31; Status DC Fentanyl Citrate (Fentanyl 2ml Vial) 50 mcg PRN Q5MIN PRN IV MODERATE TO SEVERE PAIN; Start 12/11/17 at 16:30; Stop 12/11/17 at 20:31; Status DC Morphine Sulfate (Morphine Sulfate) 1 mg PRN Q10MIN PRN IV SEVERE PAIN; Start 12/11/17 at 16:30; Stop 12/11/17 at 20:31; Status DC Ringer's Solution 1,000 ml @ 30 mls/hr Q24H IV ; Start 12/11/17 at 16:16; Stop 12/11/17 at 20:30; Status DC Lidocaine HCl (Xylocaine-Mpf 1% 2ml Vial) 2 ml 1X PRN PRN ID IV START; Start 12/11/17 at 16:30; Stop 12/11/17 at 20:31; Status DC Hydromorphone HCl (Dilaudid) 0.5 mg PRN Q10MIN PRN IV SEV PAIN, Second choice; Start 12/11/17 at 16:30; Stop 12/11/17 at 20:31; Status DC Prochlorperazine Edisylate (Compazine) 5 mg PACU PRN PRN IV NAUSEA, MRX1; Start 12/11/17 at 16:30; Stop 12/11/17 at 20:31; Status DC Fentanyl Citrate (Fentanyl 2ml Vial) 100 mcg STK-MED ONCE .ROUTE ; Start at 16:44; Stop 12/11/17 at 16:45; Status DC Fentanyl Citrate (Fentanyl 2ml Vial) 100 mcg STK-MED ONCE .ROUTE ; Start at 17:19; Stop 12/11/17 at 17:20; Status DC Midazolam HCl (Versed) 2 mg STK-MED ONCE .ROUTE ; Start 12/11/17 at 17:19; Stop 12/11/17 at 17:20; Status DC Propofol 20 ml @ As Directed STK-MED ONCE IV ; Start 12/11/17 at 17:25; Stop 12/11/17 at 17:26; Status DC Dexamethasone Sodium Phosphate (Decadron) 20 mg STK-MED ONCE .ROUTE ; Start at 17:25; Stop 12/11/17 at 17:26; Status DC Ketorolac Tromethamine (Toradol For Or Only) 30 mg STK-MED ONCE INJ ; Start at 17:25; Stop 12/11/17 at 17:26; Status DC Lidocaine HCl (Lidocaine Pf 2% Vial) 5 ml STK-MED ONCE .ROUTE ; Start 12/11/17 at 17:25; Stop 12/11/17 at 17:26; Status DC Ondansetron HCl (Zofran) 4 mg STK-MED ONCE .ROUTE ; Start 12/11/17 at 17:25; Stop 12/11/17 at 17:26; Status DC Fentanyl Citrate (Fentanyl 2ml Vial) 100 mcg STK-MED ONCE .ROUTE ; Start at 18:58; Stop 12/11/17 at 18:59; Status DC Hydromorphone HCl (Dilaudid) 2 mg STK-MED ONCE .ROUTE ; Start 12/11/17 at 18:59 ; Stop 12/11/17 at 19:00; Status DC Prochlorperazine Edisylate (Compazine) 10 mg STK-MED ONCE .ROUTE ; Start at 18:59; Stop 12/11/17 at 19:00; Status DC Influenza Virus Vaccine (Afluria Trivalent [id number] Syringe) 0.5 ml ONCE ONCE VAX IM Last administered on 12/12/17at 08:15; Start 12/12/17 at 09:00; Stop 12/12/17 at 09:01; Status DC Nicotine Polacrilex (Nicorette Gum) 1 each PRN Q1HR PRN BC SMOKING CESSATION Last administered on 12/13/17at 20:47; Start 12/11/17 at 22:15 Lorazepam (Ativan) 1 mg PRN Q6HRS PRN PO ANXIETY / AGITATION Last administered on 12/11/17at 22:49; Start 12/11/17 at 22:45 Linezolid (Zyvox) 600 mg BID PO Last administered on 12/13/17 20:38; Start 12/12/17 at 10:00 Acetazolamide (Diamox) 250 mg BID PO Last administered on 12/13/17 20:38; Start 12/12/17 at 12:30 Atorvastatin Calcium (Lipitor) 10 mg HS PO Last administered on 12/13/17at 20: 37; Start 12/12/17 at 21:00 Cyclobenzaprine HCl (Flexeril) 10 mg TID PO Last administered on 12/13/17at 20: 38; Start 12/12/17 at 14:00 Glipizide (Glucotrol) 5 mg DAILY PO ; Start 12/13/17 at 09:00; Stop 12/13/17 at 09:00; Status DC Levothyroxine Sodium (Synthroid) 100 mcg DAILY06 PO Last administered on at 05:50; Start 12/12/17 at 12:30 Amitriptyline HCl (Elavil) 150 mg QHS PO Last administered on 12/13/17 20:38 ; Start 12/12/17 at 21:00 Hydroxyzine Pamoate (Vistaril) 25 mg TID@0700,1100,1600 PO Last administered on 12/13/17 05:50; Start 12/12/17 at 16:00 Hydroxyzine Pamoate (Vistaril) 50 mg QHS PO Last administered on 12/13/17 20: 38; Start 12/12/17 at 21:00 Meloxicam (Mobic) 15 mg DAILY PO Last administered on 12/13/17at 08:51; Start 12/12/17 at 12:30 Insulin Glargine (Lantus) 40 units BID SQ Last administered on 12/12/17at 14:28 ; Start 12/12/17 at 12:30; Stop 12/13/17 at 09:07; Status DC Nicotine (Nicoderm Cq 14mg) 1 patch PRN DAILY PRN TD SMOKING CESSATION; Start 12/12/17 at 12:00 Glipizide (Glucotrol) 5 mg DAILY PO Last administered on 12/12/17at 14:15; Start 12/12/17 at 13:00; Stop 12/13/17 at 09:07; Status DC Insulin Glargine (Lantus) 20 units QHS SQ ; Start 12/13/17 at 21:00 Potassium Chloride (Klor-Con) 40 meq 1X ONCE PO Last administered on at 14:21; Start 12/13/17 at 14:00; Stop 12/13/17 at 14:01; Status DC Heparin Sodium (Porcine) (Heparin Sodium) 5,000 unit Q8HRS SQ Last administered on 12/13/17at 20:46; Start 12/13/17 at 14:00 Active Scripts Active Reported Hydroxyzine Hcl 50 Mg Tablet 50 Mg PO QHS Hydroxyzine Hcl 25 Mg Tablet 25 Mg PO TID Acetazolamide 250 Mg Tablet 250 Mg PO BID Novolin N (Nph, Human Insulin Isophane) 100 Unit/1 Ml Vial 40 Unit SQ BID Potassium Chloride 10 Meq Tab.sr.24h 10 Meq PO TID Meloxicam 15 Mg Tablet 15 Mg PO DAILY Cyclobenzaprine Hcl 10 Mg Tablet 10 Mg PO TID Levothyroxine Sodium 100 Mcg Tablet 1 Tab PO DAILY Metformin Hcl 850 Mg Tablet 850 Mg PO BIDWMEALS Glipizide 5 Mg Tablet 5 Mg PO DAILY Atorvastatin Calcium 10 Mg Tablet 10 Mg PO HS Amitriptyline Hcl 150 Mg Tablet 1 Tab PO QHS Vitals/I & O Vital Sign - Last 24 Hours 12/13/17 12/13/17 12/13/17 12/13/17 15:00 18:42 19:00 19:12 Temp 97.8 97.4 97.8 97.4 Pulse 73 98 Resp 24 20 16 B/P (MAP) 94/44 (61) 115/76 (89) Pulse Ox 98 97 98 O2 Delivery Room Air Room Air Room Air 12/13/17 12/13/17 12/13/17 12/13/17 20:00 20:39 21:39 23:00 Temp 97.7 97.7 Pulse 80 Resp 18 16 18 B/P (MAP) 111/72 (85) Pulse Ox 98 98 95 O2 Delivery Room Air Room Air Room Air O2 Flow Rate 8.0 12/14/17 12/14/17 12/14/17 12/14/17 03:00 07:00 08:00 09:27 Temp 97.6 97.3 97.6 97.3 Pulse 80 76 Resp 18 18 B/P (MAP) 115/72 (86) 117/77 (90) Pulse Ox 96 97 97 O2 Delivery Room Air Room Air O2 Flow Rate 8.0 8.0 Intake and Output 12/13/17 12/13/17 12/14/17 15:00 23:00 07:00 Intake Total 240 ml 240 ml Balance 240 ml 240 ml STEVEN BURNETTE MD Dec 14, 2017 11:22
[2017-12-14] MEDS: IV RINGERS,LACTATED 1000ML 1,000 ML IV SCH ×2 (12:30→21:34)
[2017-12-14] MEDS ORDERED: MIDAZOLAM HCL/PF 2 MG/2 ML VIAL. ONE (12:30)
[2017-12-14] MEDS ORDERED: PROPOFOL 20 ML IV ONE (12:30)
[2017-12-14] MEDS ORDERED: KETAMINE HCL 50 MG/5 ML SYRINGE ONE (12:30)
[2017-12-14] MEDS ORDERED: PROPOFOL 50 ML IV ONE ×2 (13:03→13:29)
[2017-12-14] MEDS: MORPHINE SULFATE 4 MG/ML VIAL. IV PRN ×3 (14:05→20:19)
[2017-12-14] MEDS: oxyCODONE/APAP 5/325 1 TAB TABLET PO PRN ×2 (14:56→21:31)
[2017-12-14 15:00] VITALS: BP 149/83
--- NOTE | 2017-12-14 15:02 | PDOC ---
Infectious Disease Note Subjective Subjective just came back from surgery feeling ok, has surgery pain ROS ROS no n/v/d/sob Vital Sign Vital Signs Vital Signs Date Time Temp Pulse Resp B/P (MAP) Pulse Ox O2 Delivery O2 Flow Rate FiO2 12/14/17 14:56 100 Room Air 8.0 12/14/17 14:05 20 12/14/17 13:40 98.8 86 103/69 98.8 Physical Exam PHYSICAL EXAM CONSTITUTIONAL: He is pleasant, cooperative, in no acute distress. He is sitting up in bed. HEENT: Pupils are equal. Left eye sight deviation normal conjunctivae. Oral cavity, pharynx is clear. NECK: Supple, no JVD. LUNGS: Clear to auscultation. HEART: S1, S2. ABDOMEN: Obese, soft, nontender, nondistended with positive bowel sounds. EXTREMITIES: Without clubbing, cyanosis. Trace edema. He has some scabbed wounds over his lower extremities. His right hand is postop dressed. Finger remains swollen. NVI with good cap refill. Drain fell off. not cool but is tender. Moves all ext SKIN: Without signs of gross rash. NEUROLOGIC: Answers questions appropriately, moves all extremities. PSYCHIATRIC: Affect is pleasant. Labs Lab Laboratory Tests Test 12/13/17 16:58 12/13/17 20:36 12/14/17 04:05 12/14/17 07:57 Glucose (Fingerstick) 114 mg/dL (70-99) 125 mg/dL (70-99) 132 mg/dL (70-99) White Blood Count 7.4 x10^3/uL (4.0-11.0) Red Blood Count 4.23 x10^6/uL (4.30-5.70) Hemoglobin 13.0 g/dL (13.0-17.5) Hematocrit 38.1 % (39.0-53.0) Mean Corpuscular Volume 90 fL (79-100) Mean Corpuscular Hemoglobin 31 pg (25-35) Mean Corpuscular Hemoglobin Concent 34 g/dL (31-37) Red Cell Distribution Width 14.4 % (11.5-14.5) Platelet Count 185 x10^3/uL (140-400) Neutrophils (%) (Auto) 62 % (31-73) Lymphocytes (%) (Auto) 29 % (24-48) Monocytes (%) (Auto) 7 % (0-9) Eosinophils (%) (Auto) 2 % (0-3) Basophils (%) (Auto) 0 % (0-3) Neutrophils # (Auto) 4.6 x10^3uL (1.8-7.7) Lymphocytes # (Auto) 2.1 x10^3/uL (1.0-4.8) Monocytes # (Auto) 0.5 x10^3/uL (0.0-1.1) Eosinophils # (Auto) 0.1 x10^3/uL (0.0-0.7) Basophils # (Auto) 0.0 x10^3/uL (0.0-0.2) Sodium Level 146 mmol/L (136-145) Potassium Level 3.7 mmol/L (3.5-5.1) Chloride Level 112 mmol/L (98-107) Carbon Dioxide Level 21 mmol/L (21-32) Anion Gap 13 (6-14) Blood Urea Nitrogen 12 mg/dL (8-26) Creatinine 1.1 mg/dL (0.7-1.3) Estimated GFR (Cockcroft-Gault) 70.6 Glucose Level 129 mg/dL (70-99) Calcium Level 7.7 mg/dL (8.5-10.1) Test 12/14/17 14:23 Glucose (Fingerstick) 64 mg/dL (70-99) Micro Microbiology 12/11/17 Blood Culture - Preliminary, Resulted NO GROWTH AFTER 3 DAYS 12/11/17 Anaerobic/Aerobic Culture, Resulted Pending 12/11/17 Anaerobic Culture Result 1 (HELIO), Resulted Pending 12/11/17 Aerobic Culture - Preliminary, Resulted 12/11/17 Aerobic Culture Result 1 (HELIO) - Preliminary, Resulted 12/11/17 Gram Stain - Final, Resulted 12/11/17 Gram Stain Result 1 (HELIO) - Final, Resulted 12/11/17 Gram Stain Result 2 (HELIO) - Final, Resulted Objective Assessment Right ringer finger tenosynovitis - s/p I and D 12/11 Leukocytosis better but did receive Dexamethasone 12/11 H/o MRSA Muscular dystrophy Plan Plan of Care Needs elevation - instructed how to elevate Cont Zosyn/Zyvox. At risk for BRIA with high dose Vanc F/u labs and cults D/w family DARLING,DARIEL R MD Dec 14, 2017 15:02
[2017-12-14 19:00] VITALS: BP 137/67
--- NOTE | 2017-12-14 19:06 | PDOC4 ---
Operative Note Operative Note Date of surgery: 12/14/2017 Preoperative diagnosis: Right ring finger tenosynovitis Postoperative diagnosis: Same Operative procedure: Irrigation debridement right ring finger flexor tenosynovitis Surgeon: Fortunato Anesthesia: Gen. Estimated blood loss: Minimal Complications: None Operative indications: is a 52-year-old male who underwent irrigation debridement of a right ring finger flexor tenosynovitis 3 days ago. Cultures are still pending. He had received initial relief following the first surgical procedure and then on postop day #2 indicated more tenderness and more similar symptoms to his initial presentation prompting me to recommend a repeat irrigation debridement procedure. I went over with him that it is not unusual in the face of severe infection and a vulnerable placed like this that table procedures may be necessary to decrease the amount of bacteria present such that the body in combination with the antibiotics can effectively fight it off. He agrees to proceed with the surgical treatment Operative text: Patient was identified procedure verified he was placed in supine position on the operating table and after adequate amounts of general anesthesia were administered right upper extremity was prepped and draped in standard sterile fashion and after timeout was performed patient procedure identified and verified once again incisions were opened up at the distal palmar crease as well as oblique incision just distal to the proximal interphalangeal joint and thorough irrigation carried out at both sites. A #5 Samoan feeding tube was passed through the tendon sheath and used to further irrigate the entirety of the involved tendon sheath as there was no evidence of proximal involvement in the palm. Skin and subcutaneous tissue and fascia worse sharply debrided including in the area of the initial wound as well as an additional area over the proximal phalange volarly. The feeding tube was retained and loose closure with single simple nylon sutures to the proximal and distal wounds was carried out sterile dressings were applied and patient was returned to recovery room in stable condition having tolerated procedure well MIRELA SALCIDO MD Dec 14, 2017 19:06
[2017-12-14] MEDS: NICOTINE POLACRILEX 2MG GUM PACKAGE of 12. BC PRN (20:18)
[2017-12-14] MEDS: ATORVASTATIN CALCIUM 10 MG TABLET. PO SCH (21:30)
[2017-12-14] MEDS: AMITRIPTYLINE HCL 50 MG TABLET PO SCH (21:31)
[2017-12-14] MEDS: INSULIN GLARGINE 300 UNITS/3 ML INSULN.PEN. SQ SCH (21:33)
[2017-12-14 23:52] VITALS: BP 115/61
[2017-12-15] VITALS (7 sets, daily range): BP systolic 105–119; BP diastolic 63–75
[2017-12-15] MEDS: PIPERACILLIN/TAZOBACTAM 3.375 GM in IV NORMAL SALINE 50ML 50 ML IV SCH ×4 (00:08→17:44)
[2017-12-15] MEDS: MORPHINE SULFATE 4 MG/ML VIAL. IV PRN (00:08)
[2017-12-15] MEDS: HEPARIN for SUB-Q USE 5,000 UNIT/ML VIAL. SQ SCH ×3 (04:38→21:14)
[2017-12-15 04:58] LABS: BASO % 0 % (0-3); EOS # 0.2 x10^3/uL (0.0-0.7); EOS % 3 % (0-3); HEMATOCRIT 37.2 % (39.0-53.0); HEMOGLOBIN 12.6 g/dL (13.0-17.5); LYMPH # 1.7 x10^3/uL (1.0-4.8); LYMPH % 27 % (24-48); MEAN CORPUSCULAR HEMOGLOBIN 31 pg (25-35); MEAN CORPUSCULAR HGB CONC 34 g/dL (31-37); MEAN CORPUSCULAR VOLUME 90 fL (79-100); MONO # 0.4 x10^3/uL (0.0-1.1); MONO % 6 % (0-9); NEUT % 64 % (31-73); PLATELET COUNT 204 x10^3/uL (140-400); RED BLOOD COUNT 4.14 x10^6/uL (4.30-5.70); RED CELL DISTRIBUTION WIDTH 14.3 % (11.5-14.5); WHITE BLOOD COUNT 6.3 x10^3/uL (4.0-11.0)
[2017-12-15 05:17] LABS: CALCIUM 8.2 mg/dL (8.5-10.1); CREATININE 1.2 mg/dL (0.7-1.3); GFR 63.8; POTASSIUM 3.9 mmol/L (3.5-5.1)
[2017-12-15] MEDS: oxyCODONE/APAP 5/325 1 TAB TABLET PO PRN ×3 (06:03→18:37)
[2017-12-15] MEDS: hydrOXYzine PAMOATE 25 MG CAPSULE PO SCH ×4 (06:03→21:12)
[2017-12-15] MEDS: LEVOTHYROXINE 100 MCG TABLET PO SCH (06:03)
[2017-12-15] MEDS: INSULIN LISPRO 300 UNITS/3 ML INSULN.PEN. SQ SCH ×3 (08:00→17:00)
[2017-12-15] MEDS: LINEZOLID 600 MG TABLET PO SCH ×2 (09:26→21:13)
[2017-12-15] MEDS: LACTOBACILLUS RHAMNOSUS GG 1 CAPSULE. PO SCH ×2 (09:26→21:13)
[2017-12-15] MEDS: acetaZOLAMIDE 250 MG TABLET. PO SCH ×2 (09:26→21:13)
[2017-12-15] MEDS: MELOXICAM 7.5 MG TABLET PO SCH (09:26)
[2017-12-15] MEDS: CYCLOBENZAPRINE 10 MG TABLET. PO SCH ×3 (09:26→21:00)
--- NOTE | 2017-12-15 12:03 | PDOC ---
Infectious Disease Note Subjective Subjective c/o pain Denies F/C/S/N/V/D ROS ROS per HPI otherwise neg Vital Sign Vital Signs Vital Signs Date Time Temp Pulse Resp B/P (MAP) Pulse Ox O2 Delivery O2 Flow Rate FiO2 12/15/17 11:00 97.8 91 20 105/63 (77) 100 Room Air 97.8 12/14/17 17:44 8.0 Physical Exam PHYSICAL EXAM GENERAL: Lying down, alert, NAD HEENT: Pupils are equal. Left eye sight deviation normal conjunctivae. Oral cavity, pharynx is clear. LUNGS: Clear to auscultation. HEART: S1, S2. ABDOMEN: Obese, soft, nontender, nondistended with positive bowel sounds. EXTREMITIES: Right hand is postop dressed. Finger remains swollen. NVI with good cap refill. wiggles fingers SKIN: Without signs of gross rash. NEUROLOGIC: ALert, responds appropriately, moves all extremities. Labs Lab Laboratory Tests Test 12/14/17 14:23 12/14/17 17:05 12/14/17 21:19 12/15/17 03:40 Glucose (Fingerstick) 64 mg/dL (70-99) 153 mg/dL (70-99) 134 mg/dL (70-99) White Blood Count 6.3 x10^3/uL (4.0-11.0) Red Blood Count 4.14 x10^6/uL (4.30-5.70) Hemoglobin 12.6 g/dL (13.0-17.5) Hematocrit 37.2 % (39.0-53.0) Mean Corpuscular Volume 90 fL (79-100) Mean Corpuscular Hemoglobin 31 pg (25-35) Mean Corpuscular Hemoglobin Concent 34 g/dL (31-37) Red Cell Distribution Width 14.3 % (11.5-14.5) Platelet Count 204 x10^3/uL (140-400) Neutrophils (%) (Auto) 64 % (31-73) Lymphocytes (%) (Auto) 27 % (24-48) Monocytes (%) (Auto) 6 % (0-9) Eosinophils (%) (Auto) 3 % (0-3) Basophils (%) (Auto) 0 % (0-3) Neutrophils # (Auto) 4.0 x10^3uL (1.8-7.7) Lymphocytes # (Auto) 1.7 x10^3/uL (1.0-4.8) Monocytes # (Auto) 0.4 x10^3/uL (0.0-1.1) Eosinophils # (Auto) 0.2 x10^3/uL (0.0-0.7) Basophils # (Auto) 0.0 x10^3/uL (0.0-0.2) Sodium Level 142 mmol/L (136-145) Potassium Level 3.9 mmol/L (3.5-5.1) Chloride Level 110 mmol/L (98-107) Carbon Dioxide Level 22 mmol/L (21-32) Anion Gap 10 (6-14) Blood Urea Nitrogen 12 mg/dL (8-26) Creatinine 1.2 mg/dL (0.7-1.3) Estimated GFR (Cockcroft-Gault) 63.8 Glucose Level 96 mg/dL (70-99) Calcium Level 8.2 mg/dL (8.5-10.1) Test 12/15/17 07:45 12/15/17 11:31 Glucose (Fingerstick) 112 mg/dL (70-99) 77 mg/dL (70-99) Micro Microbiology 12/11/17 Blood Culture - Preliminary, Resulted NO GROWTH AFTER 4 DAYS 12/11. ANAEROBIC-AEROBIC CULTURE Preliminary Preliminary report ANAEROBIC RES 1 Preliminary Comment No anaerobes recovered in 24 hours. AEROBIC CULT Final Final report AEROBIC RES 1 Final Comment No growth in 56 - 72 hours. GRAM STAIN Final Final report GRAM STAIN RES 1 Final Comment Few white blood cells. GRAM STAIN RES 2 Final No organisms seen Objective Assessment Right ringer finger tenosynovitis - s/p I and D 12/11 & . cultures neg so far Leukocytosis better H/o MRSA Muscular dystrophy Plan Plan of Care Needs elevation - instructed how to elevate Cont Zosyn/Zyvox. At risk for BRIA with high dose Vanc F/u labs and cults D/w S.O. Patient seen, examined, I agree with above. Assessment and plan was formulated with [facility]. LAM CESPEDES APRN Dec 15, 2017 12:03 ROSANNA DARLING MD Dec 15, 2017 15:44
--- NOTE | 2017-12-15 13:51 | PDOC ---
PROGRESS NOTES Chief Complaint Chief Complaint rt 4th finger tenosynovitis s/p i an d on 12/11 , 12/14 sepsis chronic hypokalemia dm2 hypothyroidism muscular dystrophy restless leg syndrome elevated lactate tobaccoism plan: fu with ortho, ID pt required regular diet, ok for now given sugar not very high cont home meds decrease lantus to 15u qhs for now, ssi, dc glipizide. labetolol prn for htn dvt ppx tmr if ok with sx pain control with both po and iv meds prn vanco, zosyn for now, fu bx, ID consulted, change to zyvox, and zosyn, fu cx. nicotine patch prn, gum prn. replete K History of Present Illness History of Present Illness ROS: no fever, chills, sob or chest pain got i and d on 12/11, 12/14 has a drain fell off night of 12/13 12/15, better pain not taking glipizide daily at home glucose has been lower side Vitals Vitals Vital Signs Date Time Temp Pulse Resp B/P (MAP) Pulse Ox O2 Delivery O2 Flow Rate FiO2 12/15/17 13:08 Room Air 12/15/17 11:00 97.8 91 20 105/63 (77) 100 97.8 12/14/17 17:44 8.0 Physical Exam Physical Exam GENERAL: Lying down, alert, NAD HEENT: Pupils are equal. Left eye sight deviation normal conjunctivae. Oral cavity, pharynx is clear. LUNGS: Clear to auscultation. HEART: S1, S2. ABDOMEN: Obese, soft, nontender, nondistended with positive bowel sounds. EXTREMITIES: Right hand is postop dressed. Finger remains swollen. NVI with good cap refill. wiggles fingers SKIN: Without signs of gross rash. NEUROLOGIC: ALert, responds appropriately, moves all extremities. General: Alert, Oriented X3, Cooperative Heart: Regular rate, Normal S1, Normal S2 Lungs: Clear Abdomen: Normal bowel sounds, Soft Extremities: No clubbing, No cyanosis Skin: No rashes Labs LABS Laboratory Tests Test 12/14/17 14:23 12/14/17 17:05 12/14/17 21:19 12/15/17 03:40 Glucose (Fingerstick) 64 mg/dL (70-99) 153 mg/dL (70-99) 134 mg/dL (70-99) White Blood Count 6.3 x10^3/uL (4.0-11.0) Red Blood Count 4.14 x10^6/uL (4.30-5.70) Hemoglobin 12.6 g/dL (13.0-17.5) Hematocrit 37.2 % (39.0-53.0) Mean Corpuscular Volume 90 fL (79-100) Mean Corpuscular Hemoglobin 31 pg (25-35) Mean Corpuscular Hemoglobin Concent 34 g/dL (31-37) Red Cell Distribution Width 14.3 % (11.5-14.5) Platelet Count 204 x10^3/uL (140-400) Neutrophils (%) (Auto) 64 % (31-73) Lymphocytes (%) (Auto) 27 % (24-48) Monocytes (%) (Auto) 6 % (0-9) Eosinophils (%) (Auto) 3 % (0-3) Basophils (%) (Auto) 0 % (0-3) Neutrophils # (Auto) 4.0 x10^3uL (1.8-7.7) Lymphocytes # (Auto) 1.7 x10^3/uL (1.0-4.8) Monocytes # (Auto) 0.4 x10^3/uL (0.0-1.1) Eosinophils # (Auto) 0.2 x10^3/uL (0.0-0.7) Basophils # (Auto) 0.0 x10^3/uL (0.0-0.2) Sodium Level 142 mmol/L (136-145) Potassium Level 3.9 mmol/L (3.5-5.1) Chloride Level 110 mmol/L (98-107) Carbon Dioxide Level 22 mmol/L (21-32) Anion Gap 10 (6-14) Blood Urea Nitrogen 12 mg/dL (8-26) Creatinine 1.2 mg/dL (0.7-1.3) Estimated GFR (Cockcroft-Gault) 63.8 Glucose Level 96 mg/dL (70-99) Calcium Level 8.2 mg/dL (8.5-10.1) Test 12/15/17 07:45 12/15/17 11:31 Glucose (Fingerstick) 112 mg/dL (70-99) 77 mg/dL (70-99) Assessment and Plan Assessmemt and Plan Problems Medical Problems: (1) Cellulitis of hand Status: Acute Comment Review of Relevant I have reviewed the following items chema (where applicable) has been applied. Labs Laboratory Tests Test 12/13/17 16:58 12/13/17 20:36 12/14/17 04:05 12/14/17 07:57 Glucose (Fingerstick) 114 mg/dL (70-99) 125 mg/dL (70-99) 132 mg/dL (70-99) White Blood Count 7.4 x10^3/uL (4.0-11.0) Red Blood Count 4.23 x10^6/uL (4.30-5.70) Hemoglobin 13.0 g/dL (13.0-17.5) Hematocrit 38.1 % (39.0-53.0) Mean Corpuscular Volume 90 fL (79-100) Mean Corpuscular Hemoglobin 31 pg (25-35) Mean Corpuscular Hemoglobin Concent 34 g/dL (31-37) Red Cell Distribution Width 14.4 % (11.5-14.5) Platelet Count 185 x10^3/uL (140-400) Neutrophils (%) (Auto) 62 % (31-73) Lymphocytes (%) (Auto) 29 % (24-48) Monocytes (%) (Auto) 7 % (0-9) Eosinophils (%) (Auto) 2 % (0-3) Basophils (%) (Auto) 0 % (0-3) Neutrophils # (Auto) 4.6 x10^3uL (1.8-7.7) Lymphocytes # (Auto) 2.1 x10^3/uL (1.0-4.8) Monocytes # (Auto) 0.5 x10^3/uL (0.0-1.1) Eosinophils # (Auto) 0.1 x10^3/uL (0.0-0.7) Basophils # (Auto) 0.0 x10^3/uL (0.0-0.2) Sodium Level 146 mmol/L (136-145) Potassium Level 3.7 mmol/L (3.5-5.1) Chloride Level 112 mmol/L (98-107) Carbon Dioxide Level 21 mmol/L (21-32) Anion Gap 13 (6-14) Blood Urea Nitrogen 12 mg/dL (8-26) Creatinine 1.1 mg/dL (0.7-1.3) Estimated GFR (Cockcroft-Gault) 70.6 Glucose Level 129 mg/dL (70-99) Calcium Level 7.7 mg/dL (8.5-10.1) Test 12/14/17 14:23 12/14/17 17:05 12/14/17 21:19 12/15/17 03:40 Glucose (Fingerstick) 64 mg/dL (70-99) 153 mg/dL (70-99) 134 mg/dL (70-99) White Blood Count 6.3 x10^3/uL (4.0-11.0) Red Blood Count 4.14 x10^6/uL (4.30-5.70) Hemoglobin 12.6 g/dL (13.0-17.5) Hematocrit 37.2 % (39.0-53.0) Mean Corpuscular Volume 90 fL (79-100) Mean Corpuscular Hemoglobin 31 pg (25-35) Mean Corpuscular Hemoglobin Concent 34 g/dL (31-37) Red Cell Distribution Width 14.3 % (11.5-14.5) Platelet Count 204 x10^3/uL (140-400) Neutrophils (%) (Auto) 64 % (31-73) Lymphocytes (%) (Auto) 27 % (24-48) Monocytes (%) (Auto) 6 % (0-9) Eosinophils (%) (Auto) 3 % (0-3) Basophils (%) (Auto) 0 % (0-3) Neutrophils # (Auto) 4.0 x10^3uL (1.8-7.7) Lymphocytes # (Auto) 1.7 x10^3/uL (1.0-4.8) Monocytes # (Auto) 0.4 x10^3/uL (0.0-1.1) Eosinophils # (Auto) 0.2 x10^3/uL (0.0-0.7) Basophils # (Auto) 0.0 x10^3/uL (0.0-0.2) Sodium Level 142 mmol/L (136-145) Potassium Level 3.9 mmol/L (3.5-5.1) Chloride Level 110 mmol/L (98-107) Carbon Dioxide Level 22 mmol/L (21-32) Anion Gap 10 (6-14) Blood Urea Nitrogen 12 mg/dL (8-26) Creatinine 1.2 mg/dL (0.7-1.3) Estimated GFR (Cockcroft-Gault) 63.8 Glucose Level 96 mg/dL (70-99) Calcium Level 8.2 mg/dL (8.5-10.1) Test 12/15/17 07:45 12/15/17 11:31 Glucose (Fingerstick) 112 mg/dL (70-99) 77 mg/dL (70-99) Laboratory Tests Test 12/14/17 14:23 12/14/17 17:05 12/14/17 21:19 12/15/17 03:40 Glucose (Fingerstick) 64 mg/dL (70-99) 153 mg/dL (70-99) 134 mg/dL (70-99) White Blood Count 6.3 x10^3/uL (4.0-11.0) Red Blood Count 4.14 x10^6/uL (4.30-5.70) Hemoglobin 12.6 g/dL (13.0-17.5) Hematocrit 37.2 % (39.0-53.0) Mean Corpuscular Volume 90 fL (79-100) Mean Corpuscular Hemoglobin 31 pg (25-35) Mean Corpuscular Hemoglobin Concent 34 g/dL (31-37) Red Cell Distribution Width 14.3 % (11.5-14.5) Platelet Count 204 x10^3/uL (140-400) Neutrophils (%) (Auto) 64 % (31-73) Lymphocytes (%) (Auto) 27 % (24-48) Monocytes (%) (Auto) 6 % (0-9) Eosinophils (%) (Auto) 3 % (0-3) Basophils (%) (Auto) 0 % (0-3) Neutrophils # (Auto) 4.0 x10^3uL (1.8-7.7) Lymphocytes # (Auto) 1.7 x10^3/uL (1.0-4.8) Monocytes # (Auto) 0.4 x10^3/uL (0.0-1.1) Eosinophils # (Auto) 0.2 x10^3/uL (0.0-0.7) Basophils # (Auto) 0.0 x10^3/uL (0.0-0.2) Sodium Level 142 mmol/L (136-145) Potassium Level 3.9 mmol/L (3.5-5.1) Chloride Level 110 mmol/L (98-107) Carbon Dioxide Level 22 mmol/L (21-32) Anion Gap 10 (6-14) Blood Urea Nitrogen 12 mg/dL (8-26) Creatinine 1.2 mg/dL (0.7-1.3) Estimated GFR (Cockcroft-Gault) 63.8 Glucose Level 96 mg/dL (70-99) Calcium Level 8.2 mg/dL (8.5-10.1) Test 12/15/17 07:45 12/15/17 11:31 Glucose (Fingerstick) 112 mg/dL (70-99) 77 mg/dL (70-99) Microbiology 12/11/17 Blood Culture - Preliminary, Resulted NO GROWTH AFTER 4 DAYS 12/11/17 Anaerobic/Aerobic Culture - Preliminary, Resulted 12/11/17 Anaerobic Culture Result 1 (HELIO) - Preliminary, Resulted 12/11/17 Aerobic Culture - Final, Resulted 12/11/17 Aerobic Culture Result 1 (HELIO) - Final, Resulted 12/11/17 Gram Stain - Final, Resulted 12/11/17 Gram Stain Result 1 (HELIO) - Final, Resulted 12/11/17 Gram Stain Result 2 (HELIO) - Final, Resulted Medications Current Medications Vancomycin HCl (Vanco Per Pharmacy) 1 each PRN DAILY PRN MC SEE COMMENTS; Start 12/11/17 at 11:45; Status UNV Fentanyl Citrate (Fentanyl 2ml Vial) 50 mcg 1X ONCE IV Last administered on at 12:13; Start 12/11/17 at 12:15; Stop 12/11/17 at 12:34; Status DC Vancomycin HCl 2 gm/Sodium Chloride 500 ml @ 250 mls/hr 1X ONCE IV Last administered on 12/11/17at 13:11; Start 12/11/17 at 12:45; Stop 12/11/17 at 14 :44; Status DC Sodium Chloride 1,000 ml @ 1,000 mls/hr 1X ONCE IV Last administered on 12/11at 12:59; Start 12/11/17 at 12:45; Stop 12/11/17 at 13:44; Status DC Morphine Sulfate (Morphine Sulfate) 4 mg 1X ONCE IV Last administered on 12/11at 12:59; Start 12/11/17 at 13:00; Stop 12/11/17 at 13:01; Status DC Ketamine HCl (Ketamine) 20 mg 1X ONCE IV Last administered on 12/11/17at 13:58 ; Start 12/11/17 at 13:45; Stop 12/11/17 at 13:46; Status DC Ondansetron HCl (Zofran) 4 mg PRN Q8HRS PRN IV NAUSEA/VOMITING; Start at 14:00; Stop 12/12/17 at 13:41; Status DC Morphine Sulfate (Morphine Sulfate) 4 mg PRN Q2HR PRN IV PAIN Last administered on 12/12/17at 10:27; Start 12/11/17 at 14:00; Stop 12/12/17 at 13 :42; Status DC Sodium Chloride 1,000 ml @ 80 mls/hr [id number] IV ; Start 12/11/17 at 14:30; Stop 12/11/17 at 20:30; Status DC Ondansetron HCl (Zofran) 4 mg PRN Q6HRS PRN IV NAUSEA/VOMITING; Start at 14:15; Stop 12/11/17 at 20:31; Status DC Fentanyl Citrate (Fentanyl 2ml Vial) 25 mcg PRN Q5MIN PRN IV MILD PAIN; Start 12/11/17 at 14:15; Stop 12/11/17 at 20:31; Status DC Fentanyl Citrate (Fentanyl 2ml Vial) 50 mcg PRN Q5MIN PRN IV MODERATE TO SEVERE PAIN Last administered on 12/11/17at 19:26; Start 12/11/17 at 14:15; Stop 12/11/17 at 20:31; Status DC Morphine Sulfate (Morphine Sulfate) 1 mg PRN Q10MIN PRN IV SEVERE PAIN; Start 12/11/17 at 14:15; Stop 12/11/17 at 20:31; Status DC Ringer's Solution 1,000 ml @ 30 mls/hr Q24H IV Last administered on at 16:32; Start 12/11/17 at 14:06; Stop 12/11/17 at 20:30; Status DC Lidocaine HCl (Xylocaine-Mpf 1% 2ml Vial) 2 ml 1X PRN PRN ID IV START; Start 12/11/17 at 14:15; Stop 12/11/17 at 20:31; Status DC Hydromorphone HCl (Dilaudid) 0.5 mg PRN Q10MIN PRN IV SEV PAIN, Second choice Last administered on 12/11/17at 20:00; Start 12/11/17 at 14:15; Stop 12/11/17 at 20:31; Status DC Prochlorperazine Edisylate (Compazine) 5 mg PACU PRN PRN IV NAUSEA, MRX1; Start 12/11/17 at 14:15; Stop 12/11/17 at 20:31; Status DC Acetaminophen (Tylenol) 650 mg PRN Q6HRS PRN PO FEVER; Start 12/11/17 at 14:15 Ondansetron HCl (Zofran) 4 mg PRN Q6HRS PRN IV NAUSEA/VOMITING Last administered on 12/11/17at 14:55; Start 12/11/17 at 14:15 Morphine Sulfate (Morphine Sulfate) 2 mg PRN Q2HR PRN IV MODERATE TO SEVERE PAIN; Start 12/11/17 at 14:15; Status UNV Tramadol HCl (Ultram) 50 mg PRN Q6HRS PRN PO MILD TO MODERATE PAIN Last administered on 12/12/17at 08:13; Start 12/11/17 at 14:15; Stop 12/12/17 at 09 :19; Status DC Docusate Sodium (Colace) 100 mg PRN DAILY PRN PO CONSTIPATION; Start 12/11/17 at 14:15 Labetalol HCl (Normodyne Iv Push) 20 mg PRN Q2HR PRN IVP HYPERTENSION, SEE COMMENTS; Start 12/11/17 at 14:15 Morphine Sulfate (Morphine Sulfate) 2 mg PRN Q2HR PRN IV MILD-MODERATE PAIN Last administered on 12/14/17at 09:27; Start 12/11/17 at 14:15 Morphine Sulfate (Morphine Sulfate) 4 mg PRN Q2HR PRN IV SEVERE PAIN Last administered on 12/15/17at 00:08; Start 12/11/17 at 14:15 Oxycodone/ Acetaminophen (Percocet 5/325) 1 tab PRN Q4HRS PRN PO PAIN Last administered on 12/15/17at 11:58; Start 12/11/17 at 14:15 Vancomycin HCl (Vanco Per Pharmacy) 1 each PRN DAILY PRN MC SEE COMMENTS Last administered on 12/11/17at 16:01; Start 12/11/17 at 14:15; Stop 12/12/17 at 09 :19; Status DC Vancomycin HCl 2 gm/Sodium Chloride 500 ml @ 250 mls/hr Q12H IV ; Start at 14:15; Status UNV Piperacillin Sod/ Tazobactam Sod 4.5 gm/Sodium Chloride 100 ml @ 200 mls/hr Q6HRS IV ; Start 12/11/17 at 18:00; Status UNV Piperacillin Sod/ Tazobactam Sod (Zosyn Per Pharmacy) 1 each PRN DAILY PRN MC SEE COMMENTS; Start 12/11/17 at 14:15 Insulin Human Lispro (HumaLOG) 0-9 UNITS TIDWMEALS SQ ; Start 12/11/17 at 17:00 Dextrose (Dextrose 50%-Water Syringe) 12.5 gm PRN Q15MIN PRN IV SEE COMMENTS; Start 12/11/17 at 14:15 Insulin Glargine (Lantus) 20 units QHS SQ Last administered on 12/11/17at 22:25 ; Start 12/11/17 at 21:00; Stop 12/12/17 at 11:55; Status DC Potassium Chloride/Sodium Chloride 1,000 ml @ 75 mls/hr [id number] IV Last administered on 12/13/17at 03:45; Start 12/11/17 at 16:00; Stop 12/13/17 at 13 :37; Status DC Piperacillin Sod/ Tazobactam Sod 3.375 gm/Sodium Chloride 50 ml @ 100 mls/hr 1X ONCE IV Last administered on 12/11/17at 15:07; Start 12/11/17 at 14:45; Stop 12/11/17 at 15:14; Status DC Piperacillin Sod/ Tazobactam Sod 3.375 gm/Sodium Chloride 50 ml @ 100 mls/hr Q6HRS IV Last administered on 12/15/17at 11:58; Start 12/11/17 at 19:00 Vancomycin HCl 1.5 gm/Sodium Chloride 500 ml @ 250 mls/hr Q8H IV Last administered on 12/12/17at 04:32; Start 12/11/17 at 21:00; Stop 12/12/17 at 09 :19; Status DC Vancomycin HCl (Vancomycin Trough Level) 1 each 1X ONCE MC ; Start 12/12/17 at 12:30; Stop 12/12/17 at 12:30; Status DC Lactobacillus Rhamnosus (Culturelle) 1 cap BID PO Last administered on at 09:26; Start 12/11/17 at 21:00 Ondansetron HCl (Zofran) 4 mg PRN Q6HRS PRN IV NAUSEA/VOMITING; Start at 16:30; Stop 12/11/17 at 20:31; Status DC Fentanyl Citrate (Fentanyl 2ml Vial) 25 mcg PRN Q5MIN PRN IV MILD PAIN; Start 12/11/17 at 16:30; Stop 12/11/17 at 20:31; Status DC Fentanyl Citrate (Fentanyl 2ml Vial) 50 mcg PRN Q5MIN PRN IV MODERATE TO SEVERE PAIN; Start 12/11/17 at 16:30; Stop 12/11/17 at 20:31; Status DC Morphine Sulfate (Morphine Sulfate) 1 mg PRN Q10MIN PRN IV SEVERE PAIN; Start 12/11/17 at 16:30; Stop 12/11/17 at 20:31; Status DC Ringer's Solution 1,000 ml @ 30 mls/hr Q24H IV ; Start 12/11/17 at 16:16; Stop 12/11/17 at 20:30; Status DC Lidocaine HCl (Xylocaine-Mpf 1% 2ml Vial) 2 ml 1X PRN PRN ID IV START; Start 12/11/17 at 16:30; Stop 12/11/17 at 20:31; Status DC Hydromorphone HCl (Dilaudid) 0.5 mg PRN Q10MIN PRN IV SEV PAIN, Second choice; Start 12/11/17 at 16:30; Stop 12/11/17 at 20:31; Status DC Prochlorperazine Edisylate (Compazine) 5 mg PACU PRN PRN IV NAUSEA, MRX1; Start 12/11/17 at 16:30; Stop 12/11/17 at 20:31; Status DC Fentanyl Citrate (Fentanyl 2ml Vial) 100 mcg STK-MED ONCE .ROUTE ; Start at 16:44; Stop 12/11/17 at 16:45; Status DC Fentanyl Citrate (Fentanyl 2ml Vial) 100 mcg STK-MED ONCE .ROUTE ; Start at 17:19; Stop 12/11/17 at 17:20; Status DC Midazolam HCl (Versed) 2 mg STK-MED ONCE .ROUTE ; Start 12/11/17 at 17:19; Stop 12/11/17 at 17:20; Status DC Propofol 20 ml @ As Directed STK-MED ONCE IV ; Start 12/11/17 at 17:25; Stop 12/11/17 at 17:26; Status DC Dexamethasone Sodium Phosphate (Decadron) 20 mg STK-MED ONCE .ROUTE ; Start at 17:25; Stop 12/11/17 at 17:26; Status DC Ketorolac Tromethamine (Toradol For Or Only) 30 mg STK-MED ONCE INJ ; Start at 17:25; Stop 12/11/17 at 17:26; Status DC Lidocaine HCl (Lidocaine Pf 2% Vial) 5 ml STK-MED ONCE .ROUTE ; Start 12/11/17 at 17:25; Stop 12/11/17 at 17:26; Status DC Ondansetron HCl (Zofran) 4 mg STK-MED ONCE .ROUTE ; Start 12/11/17 at 17:25; Stop 12/11/17 at 17:26; Status DC Fentanyl Citrate (Fentanyl 2ml Vial) 100 mcg STK-MED ONCE .ROUTE ; Start at 18:58; Stop 12/11/17 at 18:59; Status DC Hydromorphone HCl (Dilaudid) 2 mg STK-MED ONCE .ROUTE ; Start 12/11/17 at 18:59 ; Stop 12/11/17 at 19:00; Status DC Prochlorperazine Edisylate (Compazine) 10 mg STK-MED ONCE .ROUTE ; Start at 18:59; Stop 12/11/17 at 19:00; Status DC Influenza Virus Vaccine (Afluria Trivalent 2521-5498 Syringe) 0.5 ml ONCE ONCE VAX IM Last administered on 12/12/17 08:15; Start 12/12/17 at 09:00; Stop 12/12/17 at 09:01; Status DC Nicotine Polacrilex (Nicorette Gum) 1 each PRN Q1HR PRN BC SMOKING CESSATION Last administered on 12/14/17 20:18; Start 12/11/17 at 22:15 Lorazepam (Ativan) 1 mg PRN Q6HRS PRN PO ANXIETY / AGITATION Last administered on 12/11/17at 22:49; Start 12/11/17 at 22:45 Linezolid (Zyvox) 600 mg BID PO Last administered on 12/15/17 09:26; Start 12/12/17 at 10:00 Acetazolamide (Diamox) 250 mg BID PO Last administered on 12/15/17 09:26; Start 12/12/17 at 12:30 Atorvastatin Calcium (Lipitor) 10 mg HS PO Last administered on 12/14/17 21: 30; Start 12/12/17 at 21:00 Cyclobenzaprine HCl (Flexeril) 10 mg TID PO Last administered on 12/15/17 09: 26; Start 12/12/17 at 14:00 Glipizide (Glucotrol) 5 mg DAILY PO ; Start 12/13/17 at 09:00; Stop 12/13/17 at 09:00; Status DC Levothyroxine Sodium (Synthroid) 100 mcg DAILY06 PO Last administered on 06:03; Start 12/12/17 at 12:30 Amitriptyline HCl (Elavil) 150 mg QHS PO Last administered on 12/14/17at 21:31 ; Start 12/12/17 at 21:00 Hydroxyzine Pamoate (Vistaril) 25 mg TID@0700,1100,1600 PO Last administered on 12/15/17at 11:57; Start 12/12/17 at 16:00 Hydroxyzine Pamoate (Vistaril) 50 mg QHS PO Last administered on 12/14/17at 21: 30; Start 12/12/17 at 21:00 Meloxicam (Mobic) 15 mg DAILY PO Last administered on 10/20/18at 09:26; Start 12/12/17 at 12:30 Insulin Glargine (Lantus) 40 units BID SQ Last administered on 12/12/17at 14:28 ; Start 12/12/17 at 12:30; Stop 12/13/17 at 09:07; Status DC Nicotine (Nicoderm Cq 14mg) 1 patch PRN DAILY PRN TD SMOKING CESSATION; Start 12/12/17 at 12:00 Glipizide (Glucotrol) 5 mg DAILY PO Last administered on 12/12/17at 14:15; Start 12/12/17 at 13:00; Stop 12/13/17 at 09:07; Status DC Insulin Glargine (Lantus) 20 units QHS SQ Last administered on 12/14/17at 21:33 ; Start 12/13/17 at 21:00; Stop 12/15/17 at 09:28; Status DC Potassium Chloride (Klor-Con) 40 meq 1X ONCE PO Last administered on at 14:21; Start 12/13/17 at 14:00; Stop 12/13/17 at 14:01; Status DC Heparin Sodium (Porcine) (Heparin Sodium) 5,000 unit Q8HRS SQ Last administered on 12/13/17at 20:46; Start 12/13/17 at 14:00 Propofol 20 ml @ As Directed STK-MED ONCE IV ; Start 12/14/17 at 12:30; Stop 12/14/17 at 12:31; Status DC Ketamine HCl (Ketamine) 50 mg STK-MED ONCE .ROUTE ; Start 12/14/17 at 12:30; Stop 12/14/17 at 12:31; Status DC Midazolam HCl (Versed) 2 mg STK-MED ONCE .ROUTE ; Start 12/14/17 at 12:30; Stop 12/14/17 at 12:31; Status DC Propofol 50 ml @ As Directed STK-MED ONCE IV ; Start 12/14/17 at 13:03; Stop 12/14/17 at 13:04; Status DC Propofol 50 ml @ As Directed STK-MED ONCE IV ; Start 12/14/17 at 13:29; Stop 12/14/17 at 13:30; Status DC Ringer's Solution 1,000 ml @ 100 mls/hr Q10H IV Last administered on at 12:30; Start 12/14/17 at 12:01; Stop 12/15/17 at 02:49; Status DC Insulin Glargine (Lantus) 15 units QHS SQ ; Start 12/15/17 at 21:00 Active Scripts Active Reported Hydroxyzine Hcl 50 Mg Tablet 50 Mg PO QHS Hydroxyzine Hcl 25 Mg Tablet 25 Mg PO TID Acetazolamide 250 Mg Tablet 250 Mg PO BID Novolin N (Nph, Human Insulin Isophane) 100 Unit/1 Ml Vial 40 Unit SQ BID Potassium Chloride 10 Meq Tab.sr.24h 10 Meq PO TID Meloxicam 15 Mg Tablet 15 Mg PO DAILY Cyclobenzaprine Hcl 10 Mg Tablet 10 Mg PO TID Levothyroxine Sodium 100 Mcg Tablet 1 Tab PO DAILY Metformin Hcl 850 Mg Tablet 850 Mg PO BIDWMEALS Glipizide 5 Mg Tablet 5 Mg PO DAILY Atorvastatin Calcium 10 Mg Tablet 10 Mg PO HS Amitriptyline Hcl 150 Mg Tablet 1 Tab PO QHS Vitals/I & O Vital Sign - Last 24 Hours 12/14/17 12/14/17 12/14/17 12/14/17 13:55 14:05 14:10 14:25 Temp 98.8 98.8 98.8 98.8 98.8 98.8 Pulse 86 76 76 Resp 18 20 20 20 B/P (MAP) 161/73 119/67 137/77 Pulse Ox 100 100 100 99 O2 Delivery Room Air Room Air Room Air Room Air 12/14/17 12/14/17 12/14/17 12/14/17 14:35 14:40 14:56 15:00 Temp 98.8 97.5 98.8 97.5 Pulse 76 80 Resp 20 16 B/P (MAP) 132/67 149/83 (105) Pulse Ox 100 100 100 100 O2 Delivery Room Air Room Air Room Air O2 Flow Rate 8.0 8.0 12/14/17 12/14/17 12/14/17 12/14/17 15:56 17:44 19:00 20:19 Temp 97.9 97.9 Pulse 88 Resp 18 20 B/P (MAP) 137/67 (90) Pulse Ox 100 100 99 O2 Delivery Room Air Room Air Room Air O2 Flow Rate 8.0 8.0 12/14/17 12/14/17 12/14/17 12/14/17 20:20 21:31 22:31 23:52 Temp 98.7 98.7 Pulse 91 Resp 20 18 B/P (MAP) 115/61 (79) Pulse Ox 96 O2 Delivery Room Air Room Air Room Air 12/15/17 12/15/17 12/15/17 12/15/17 00:08 00:38 03:59 04:24 Temp 98.6 98.6 98.6 98.6 Pulse 78 78 Resp 20 20 19 19 B/P (MAP) 111/64 (80) 111/64 (80) Pulse Ox 95 95 O2 Delivery Room Air Room Air Room Air Room Air 12/15/17 12/15/17 12/15/17 12/15/17 06:03 07:00 11:00 11:58 Temp 97.8 97.8 97.8 97.8 Pulse 73 91 Resp 20 20 20 B/P (MAP) 115/64 (81) 105/63 (77) Pulse Ox 98 100 O2 Delivery Room Air Room Air Room Air Room Air 12/15/17 13:08 O2 Delivery Room Air Intake and Output 12/14/17 12/14/17 12/15/17 15:00 23:00 07:00 Intake Total 300 ml 400 ml 500 ml Output Total 850 ml Balance -550 ml 400 ml 500 ml STEVEN BURNETTE MD Dec 15, 2017 13:51
[2017-12-15] MEDS: AMITRIPTYLINE HCL 50 MG TABLET PO SCH (21:12)
[2017-12-15] MEDS: ATORVASTATIN CALCIUM 10 MG TABLET. PO SCH (21:13)
--- NOTE | 2017-12-15 21:13 | PDOC ---
PROGRESS NOTES Subjective Subjective Problems overnight: Right ring finger is stiff, he suspects its due to it being wrapped a little bit more vigorously than before Objective Vital Signs Vital Signs Date Time Temp Pulse Resp B/P (MAP) Pulse Ox O2 Delivery O2 Flow Rate FiO2 12/15/17 19:59 97.6 69 19 117/75 (89) 100 Room Air 97.6 12/14/17 17:44 8.0 Physical Exam On exam he does have some finger swelling some pain with motion flexor tendons are otherwise intact drain was removed today and he was redressed Labs Laboratory Tests Test 12/14/17 04:05 12/14/17 07:57 12/14/17 14:23 12/14/17 17:05 White Blood Count 7.4 x10^3/uL (4.0-11.0) Red Blood Count 4.23 x10^6/uL (4.30-5.70) Hemoglobin 13.0 g/dL (13.0-17.5) Hematocrit 38.1 % (39.0-53.0) Mean Corpuscular Volume 90 fL (79-100) Mean Corpuscular Hemoglobin 31 pg (25-35) Mean Corpuscular Hemoglobin Concent 34 g/dL (31-37) Red Cell Distribution Width 14.4 % (11.5-14.5) Platelet Count 185 x10^3/uL (140-400) Neutrophils (%) (Auto) 62 % (31-73) Lymphocytes (%) (Auto) 29 % (24-48) Monocytes (%) (Auto) 7 % (0-9) Eosinophils (%) (Auto) 2 % (0-3) Basophils (%) (Auto) 0 % (0-3) Neutrophils # (Auto) 4.6 x10^3uL (1.8-7.7) Lymphocytes # (Auto) 2.1 x10^3/uL (1.0-4.8) Monocytes # (Auto) 0.5 x10^3/uL (0.0-1.1) Eosinophils # (Auto) 0.1 x10^3/uL (0.0-0.7) Basophils # (Auto) 0.0 x10^3/uL (0.0-0.2) Sodium Level 146 mmol/L (136-145) Potassium Level 3.7 mmol/L (3.5-5.1) Chloride Level 112 mmol/L (98-107) Carbon Dioxide Level 21 mmol/L (21-32) Anion Gap 13 (6-14) Blood Urea Nitrogen 12 mg/dL (8-26) Creatinine 1.1 mg/dL (0.7-1.3) Estimated GFR (Cockcroft-Gault) 70.6 Glucose Level 129 mg/dL (70-99) Calcium Level 7.7 mg/dL (8.5-10.1) Glucose (Fingerstick) 132 mg/dL (70-99) 64 mg/dL (70-99) 153 mg/dL (70-99) Test 12/14/17 21:19 12/15/17 03:40 12/15/17 07:45 12/15/17 11:31 Glucose (Fingerstick) 134 mg/dL (70-99) 112 mg/dL (70-99) 77 mg/dL (70-99) White Blood Count 6.3 x10^3/uL (4.0-11.0) Red Blood Count 4.14 x10^6/uL (4.30-5.70) Hemoglobin 12.6 g/dL (13.0-17.5) Hematocrit 37.2 % (39.0-53.0) Mean Corpuscular Volume 90 fL (79-100) Mean Corpuscular Hemoglobin 31 pg (25-35) Mean Corpuscular Hemoglobin Concent 34 g/dL (31-37) Red Cell Distribution Width 14.3 % (11.5-14.5) Platelet Count 204 x10^3/uL (140-400) Neutrophils (%) (Auto) 64 % (31-73) Lymphocytes (%) (Auto) 27 % (24-48) Monocytes (%) (Auto) 6 % (0-9) Eosinophils (%) (Auto) 3 % (0-3) Basophils (%) (Auto) 0 % (0-3) Neutrophils # (Auto) 4.0 x10^3uL (1.8-7.7) Lymphocytes # (Auto) 1.7 x10^3/uL (1.0-4.8) Monocytes # (Auto) 0.4 x10^3/uL (0.0-1.1) Eosinophils # (Auto) 0.2 x10^3/uL (0.0-0.7) Basophils # (Auto) 0.0 x10^3/uL (0.0-0.2) Sodium Level 142 mmol/L (136-145) Potassium Level 3.9 mmol/L (3.5-5.1) Chloride Level 110 mmol/L (98-107) Carbon Dioxide Level 22 mmol/L (21-32) Anion Gap 10 (6-14) Blood Urea Nitrogen 12 mg/dL (8-26) Creatinine 1.2 mg/dL (0.7-1.3) Estimated GFR (Cockcroft-Gault) 63.8 Glucose Level 96 mg/dL (70-99) Calcium Level 8.2 mg/dL (8.5-10.1) Test 12/15/17 16:54 Glucose (Fingerstick) 97 mg/dL (70-99) Laboratory Tests Test 12/14/17 21:19 12/15/17 03:40 12/15/17 07:45 12/15/17 11:31 Glucose (Fingerstick) 134 mg/dL (70-99) 112 mg/dL (70-99) 77 mg/dL (70-99) White Blood Count 6.3 x10^3/uL (4.0-11.0) Red Blood Count 4.14 x10^6/uL (4.30-5.70) Hemoglobin 12.6 g/dL (13.0-17.5) Hematocrit 37.2 % (39.0-53.0) Mean Corpuscular Volume 90 fL (79-100) Mean Corpuscular Hemoglobin 31 pg (25-35) Mean Corpuscular Hemoglobin Concent 34 g/dL (31-37) Red Cell Distribution Width 14.3 % (11.5-14.5) Platelet Count 204 x10^3/uL (140-400) Neutrophils (%) (Auto) 64 % (31-73) Lymphocytes (%) (Auto) 27 % (24-48) Monocytes (%) (Auto) 6 % (0-9) Eosinophils (%) (Auto) 3 % (0-3) Basophils (%) (Auto) 0 % (0-3) Neutrophils # (Auto) 4.0 x10^3uL (1.8-7.7) Lymphocytes # (Auto) 1.7 x10^3/uL (1.0-4.8) Monocytes # (Auto) 0.4 x10^3/uL (0.0-1.1) Eosinophils # (Auto) 0.2 x10^3/uL (0.0-0.7) Basophils # (Auto) 0.0 x10^3/uL (0.0-0.2) Sodium Level 142 mmol/L (136-145) Potassium Level 3.9 mmol/L (3.5-5.1) Chloride Level 110 mmol/L (98-107) Carbon Dioxide Level 22 mmol/L (21-32) Anion Gap 10 (6-14) Blood Urea Nitrogen 12 mg/dL (8-26) Creatinine 1.2 mg/dL (0.7-1.3) Estimated GFR (Cockcroft-Gault) 63.8 Glucose Level 96 mg/dL (70-99) Calcium Level 8.2 mg/dL (8.5-10.1) Test 12/15/17 16:54 Glucose (Fingerstick) 97 mg/dL (70-99) Assessment Assessment POD# [1], S/P [repeat irrigation debridement right ring flexor tenosynovitis] Plan Plan of Care Again he was redressed I encouraged some movement he's can continue on antibiotics Cultures pending MIRELA SALCIDO MD Dec 15, 2017 21:13
[2017-12-15] MEDS: INSULIN GLARGINE 300 UNITS/3 ML INSULN.PEN. SQ SCH (21:15)
[2017-12-15] MEDS: NICOTINE POLACRILEX 2MG GUM PACKAGE of 12. BC PRN (21:23)
[2017-12-15] MEDS: MORPHINE SULFATE 2 MG/ML VIAL. IV PRN (21:23)
[2017-12-16] MEDS: PIPERACILLIN/TAZOBACTAM 3.375 GM in IV NORMAL SALINE 50ML 50 ML IV SCH ×4 (00:11→17:45)
[2017-12-16 03:09] VITALS: BP 101/61
[2017-12-16 05:02] LABS: BASO % 1 % (0-3); EOS # 0.2 x10^3/uL (0.0-0.7); EOS % 3 % (0-3); HEMATOCRIT 38.6 % (39.0-53.0); HEMOGLOBIN 12.8 g/dL (13.0-17.5); LYMPH # 1.4 x10^3/uL (1.0-4.8); LYMPH % 27 % (24-48); MEAN CORPUSCULAR HEMOGLOBIN 30 pg (25-35); MEAN CORPUSCULAR HGB CONC 33 g/dL (31-37); MEAN CORPUSCULAR VOLUME 91 fL (79-100); MONO # 0.4 x10^3/uL (0.0-1.1); MONO % 7 % (0-9); NEUT # 3.3 x10^3uL (1.8-7.7); NEUT % 62 % (31-73); PLATELET COUNT 206 x10^3/uL (140-400); RED BLOOD COUNT 4.25 x10^6/uL (4.30-5.70); RED CELL DISTRIBUTION WIDTH 14.1 % (11.5-14.5); WHITE BLOOD COUNT 5.3 x10^3/uL (4.0-11.0)
[2017-12-16 05:25] LABS: CALCIUM 8.5 mg/dL (8.5-10.1); CREATININE 1.2 mg/dL (0.7-1.3); GFR 63.8; POTASSIUM 3.9 mmol/L (3.5-5.1)
[2017-12-16] MEDS: HEPARIN for SUB-Q USE 5,000 UNIT/ML VIAL. SQ SCH ×3 (05:52→20:57)
[2017-12-16] MEDS: hydrOXYzine PAMOATE 25 MG CAPSULE PO SCH ×4 (06:54→20:57)
[2017-12-16] MEDS: LEVOTHYROXINE 100 MCG TABLET PO SCH (06:54)
[2017-12-16 07:00] VITALS: BP 109/54
[2017-12-16] MEDS: INSULIN LISPRO 300 UNITS/3 ML INSULN.PEN. SQ SCH ×3 (08:00→16:52)
[2017-12-16] MEDS: CYCLOBENZAPRINE 10 MG TABLET. PO SCH ×3 (08:56→21:22)
[2017-12-16] MEDS: LINEZOLID 600 MG TABLET PO SCH ×2 (08:56→20:57)
[2017-12-16] MEDS: acetaZOLAMIDE 250 MG TABLET. PO SCH ×2 (08:56→20:57)
[2017-12-16] MEDS: MELOXICAM 7.5 MG TABLET PO SCH (08:56)
[2017-12-16] MEDS: LACTOBACILLUS RHAMNOSUS GG 1 CAPSULE. PO SCH ×2 (08:56→20:58)
--- NOTE | 2017-12-16 10:12 | PDOC ---
Infectious Disease Note Subjective Subjective Dressing changed and drain removed earlier Pain controlled. Denies F/C/S/N/V/D ROS ROS per HPI Vital Sign Vital Signs Vital Signs Date Time Temp Pulse Resp B/P (MAP) Pulse Ox O2 Delivery O2 Flow Rate FiO2 12/16/17 08:00 Room Air 12/16/17 07:00 98.0 80 20 109/54 (72) 96 98.0 Physical Exam PHYSICAL EXAM GENERAL: Lying down, alert, NAD HEENT: Oral cavity, pharynx is clear. LUNGS: Clear to auscultation. HEART: S1, S2. ABDOMEN: Obese, soft, nontender, nondistended with positive bowel sounds. EXTREMITIES: Right hand dressed. Fingers swollen. NVI with good cap refill. wiggles fingers, warm SKIN: Without signs of gross rash. NEUROLOGIC: Alert, responds appropriately Labs Lab Laboratory Tests Test 12/15/17 11:31 12/15/17 16:54 12/15/17 22:00 12/16/17 04:25 Glucose (Fingerstick) 77 mg/dL (70-99) 97 mg/dL (70-99) 97 mg/dL (70-99) White Blood Count 5.3 x10^3/uL (4.0-11.0) Red Blood Count 4.25 x10^6/uL (4.30-5.70) Hemoglobin 12.8 g/dL (13.0-17.5) Hematocrit 38.6 % (39.0-53.0) Mean Corpuscular Volume 91 fL (79-100) Mean Corpuscular Hemoglobin 30 pg (25-35) Mean Corpuscular Hemoglobin Concent 33 g/dL (31-37) Red Cell Distribution Width 14.1 % (11.5-14.5) Platelet Count 206 x10^3/uL (140-400) Neutrophils (%) (Auto) 62 % (31-73) Lymphocytes (%) (Auto) 27 % (24-48) Monocytes (%) (Auto) 7 % (0-9) Eosinophils (%) (Auto) 3 % (0-3) Basophils (%) (Auto) 1 % (0-3) Neutrophils # (Auto) 3.3 x10^3uL (1.8-7.7) Lymphocytes # (Auto) 1.4 x10^3/uL (1.0-4.8) Monocytes # (Auto) 0.4 x10^3/uL (0.0-1.1) Eosinophils # (Auto) 0.2 x10^3/uL (0.0-0.7) Basophils # (Auto) 0.0 x10^3/uL (0.0-0.2) Sodium Level 142 mmol/L (136-145) Potassium Level 3.9 mmol/L (3.5-5.1) Chloride Level 110 mmol/L (98-107) Carbon Dioxide Level 23 mmol/L (21-32) Anion Gap 9 (6-14) Blood Urea Nitrogen 21 mg/dL (8-26) Creatinine 1.2 mg/dL (0.7-1.3) Estimated GFR (Cockcroft-Gault) 63.8 Glucose Level 189 mg/dL (70-99) Calcium Level 8.5 mg/dL (8.5-10.1) Test 12/16/17 07:36 Glucose (Fingerstick) 123 mg/dL (70-99) Micro BLOOD CULTURE Preliminary NO GROWTH AFTER 4 DAYS ANAEROBIC-AEROBIC CULTURE Preliminary Preliminary report ANAEROBIC RES 1 Preliminary Comment No anaerobes recovered in 24 hours. AEROBIC CULT Final Final report AEROBIC RES 1 Final Comment No growth in 56 - 72 hours. Objective Assessment Right ringer finger tenosynovitis - s/p I and D 12/11 & . cultures neg so far Leukocytosis better H/o MRSA Muscular dystrophy Plan Plan of Care Cont Zosyn and Zyvox. Cultures NGTD Supportive care Patient seen, examined, I agree with above a/p by LAM GARDINER APRN Dec 16, 2017 10:12 ROSANNA DARLING MD Dec 16, 2017 14:01
[2017-12-16 11:00] VITALS: BP 120/75
--- NOTE | 2017-12-16 12:46 | PDOC ---
PROGRESS NOTES Chief Complaint Chief Complaint rt 4th finger tenosynovitis s/p i an d on 12/11 , 12/14 sepsis chronic hypokalemia dm2 hypothyroidism muscular dystrophy restless leg syndrome elevated lactate tobaccoism plan: fu with ortho, ID pt required regular diet, ok for now given sugar not very high cont home meds decrease lantus to 15u qhs for now, ssi, dced glipizide. labetolol prn for htn dvt ppx tmr if ok with sx pain control with both po and iv meds prn vanco, zosyn for now, fu bx, ID consulted, change to zyvox, and zosyn, fu wound cx, bcx neg so far. nicotine patch prn, gum prn. replete K History of Present Illness History of Present Illness ROS: no fever, chills, sob or chest pain got i and d on 12/11, 12/14 has a drain fell off night of 12/13 12/15, better pain 12/16: drain out last night, still some pain not taking glipizide daily at home glucose has been lower side Vitals Vitals Vital Signs Date Time Temp Pulse Resp B/P (MAP) Pulse Ox O2 Delivery O2 Flow Rate FiO2 12/16/17 11:00 98.0 79 20 120/75 (90) 98 Room Air 98.0 Physical Exam Physical Exam GENERAL: Lying down, alert, NAD HEENT: Oral cavity, pharynx is clear. LUNGS: Clear to auscultation. HEART: S1, S2. ABDOMEN: Obese, soft, nontender, nondistended with positive bowel sounds. EXTREMITIES: Right hand dressed. Fingers swollen. NVI with good cap refill. wiggles fingers, warm SKIN: Without signs of gross rash. NEUROLOGIC: Alert, responds appropriately General: Alert, Oriented X3, Cooperative Heart: Regular rate, Normal S1, Normal S2 Lungs: Clear Abdomen: Normal bowel sounds, Soft Extremities: No clubbing, No cyanosis Skin: No rashes Labs LABS Laboratory Tests Test 12/15/17 16:54 12/15/17 22:00 12/16/17 04:25 12/16/17 07:36 Glucose (Fingerstick) 97 mg/dL (70-99) 97 mg/dL (70-99) 123 mg/dL (70-99) White Blood Count 5.3 x10^3/uL (4.0-11.0) Red Blood Count 4.25 x10^6/uL (4.30-5.70) Hemoglobin 12.8 g/dL (13.0-17.5) Hematocrit 38.6 % (39.0-53.0) Mean Corpuscular Volume 91 fL (79-100) Mean Corpuscular Hemoglobin 30 pg (25-35) Mean Corpuscular Hemoglobin Concent 33 g/dL (31-37) Red Cell Distribution Width 14.1 % (11.5-14.5) Platelet Count 206 x10^3/uL (140-400) Neutrophils (%) (Auto) 62 % (31-73) Lymphocytes (%) (Auto) 27 % (24-48) Monocytes (%) (Auto) 7 % (0-9) Eosinophils (%) (Auto) 3 % (0-3) Basophils (%) (Auto) 1 % (0-3) Neutrophils # (Auto) 3.3 x10^3uL (1.8-7.7) Lymphocytes # (Auto) 1.4 x10^3/uL (1.0-4.8) Monocytes # (Auto) 0.4 x10^3/uL (0.0-1.1) Eosinophils # (Auto) 0.2 x10^3/uL (0.0-0.7) Basophils # (Auto) 0.0 x10^3/uL (0.0-0.2) Sodium Level 142 mmol/L (136-145) Potassium Level 3.9 mmol/L (3.5-5.1) Chloride Level 110 mmol/L (98-107) Carbon Dioxide Level 23 mmol/L (21-32) Anion Gap 9 (6-14) Blood Urea Nitrogen 21 mg/dL (8-26) Creatinine 1.2 mg/dL (0.7-1.3) Estimated GFR (Cockcroft-Gault) 63.8 Glucose Level 189 mg/dL (70-99) Calcium Level 8.5 mg/dL (8.5-10.1) Test 12/16/17 11:22 Glucose (Fingerstick) 117 mg/dL (70-99) Assessment and Plan Assessmemt and Plan Problems Medical Problems: (1) Cellulitis of hand Status: Acute Comment Review of Relevant I have reviewed the following items chema (where applicable) has been applied. Labs Laboratory Tests Test 12/14/17 14:23 12/14/17 17:05 12/14/17 21:19 12/15/17 03:40 Glucose (Fingerstick) 64 mg/dL (70-99) 153 mg/dL (70-99) 134 mg/dL (70-99) White Blood Count 6.3 x10^3/uL (4.0-11.0) Red Blood Count 4.14 x10^6/uL (4.30-5.70) Hemoglobin 12.6 g/dL (13.0-17.5) Hematocrit 37.2 % (39.0-53.0) Mean Corpuscular Volume 90 fL (79-100) Mean Corpuscular Hemoglobin 31 pg (25-35) Mean Corpuscular Hemoglobin Concent 34 g/dL (31-37) Red Cell Distribution Width 14.3 % (11.5-14.5) Platelet Count 204 x10^3/uL (140-400) Neutrophils (%) (Auto) 64 % (31-73) Lymphocytes (%) (Auto) 27 % (24-48) Monocytes (%) (Auto) 6 % (0-9) Eosinophils (%) (Auto) 3 % (0-3) Basophils (%) (Auto) 0 % (0-3) Neutrophils # (Auto) 4.0 x10^3uL (1.8-7.7) Lymphocytes # (Auto) 1.7 x10^3/uL (1.0-4.8) Monocytes # (Auto) 0.4 x10^3/uL (0.0-1.1) Eosinophils # (Auto) 0.2 x10^3/uL (0.0-0.7) Basophils # (Auto) 0.0 x10^3/uL (0.0-0.2) Sodium Level 142 mmol/L (136-145) Potassium Level 3.9 mmol/L (3.5-5.1) Chloride Level 110 mmol/L (98-107) Carbon Dioxide Level 22 mmol/L (21-32) Anion Gap 10 (6-14) Blood Urea Nitrogen 12 mg/dL (8-26) Creatinine 1.2 mg/dL (0.7-1.3) Estimated GFR (Cockcroft-Gault) 63.8 Glucose Level 96 mg/dL (70-99) Calcium Level 8.2 mg/dL (8.5-10.1) Test 12/15/17 07:45 12/15/17 11:31 12/15/17 16:54 12/15/17 22:00 Glucose (Fingerstick) 112 mg/dL (70-99) 77 mg/dL (70-99) 97 mg/dL (70-99) 97 mg/dL (70-99) Test 12/16/17 04:25 12/16/17 07:36 12/16/17 11:22 White Blood Count 5.3 x10^3/uL (4.0-11.0) Red Blood Count 4.25 x10^6/uL (4.30-5.70) Hemoglobin 12.8 g/dL (13.0-17.5) Hematocrit 38.6 % (39.0-53.0) Mean Corpuscular Volume 91 fL (79-100) Mean Corpuscular Hemoglobin 30 pg (25-35) Mean Corpuscular Hemoglobin Concent 33 g/dL (31-37) Red Cell Distribution Width 14.1 % (11.5-14.5) Platelet Count 206 x10^3/uL (140-400) Neutrophils (%) (Auto) 62 % (31-73) Lymphocytes (%) (Auto) 27 % (24-48) Monocytes (%) (Auto) 7 % (0-9) Eosinophils (%) (Auto) 3 % (0-3) Basophils (%) (Auto) 1 % (0-3) Neutrophils # (Auto) 3.3 x10^3uL (1.8-7.7) Lymphocytes # (Auto) 1.4 x10^3/uL (1.0-4.8) Monocytes # (Auto) 0.4 x10^3/uL (0.0-1.1) Eosinophils # (Auto) 0.2 x10^3/uL (0.0-0.7) Basophils # (Auto) 0.0 x10^3/uL (0.0-0.2) Sodium Level 142 mmol/L (136-145) Potassium Level 3.9 mmol/L (3.5-5.1) Chloride Level 110 mmol/L (98-107) Carbon Dioxide Level 23 mmol/L (21-32) Anion Gap 9 (6-14) Blood Urea Nitrogen 21 mg/dL (8-26) Creatinine 1.2 mg/dL (0.7-1.3) Estimated GFR (Cockcroft-Gault) 63.8 Glucose Level 189 mg/dL (70-99) Calcium Level 8.5 mg/dL (8.5-10.1) Glucose (Fingerstick) 123 mg/dL (70-99) 117 mg/dL (70-99) Laboratory Tests Test 12/15/17 16:54 12/15/17 22:00 12/16/17 04:25 12/16/17 07:36 Glucose (Fingerstick) 97 mg/dL (70-99) 97 mg/dL (70-99) 123 mg/dL (70-99) White Blood Count 5.3 x10^3/uL (4.0-11.0) Red Blood Count 4.25 x10^6/uL (4.30-5.70) Hemoglobin 12.8 g/dL (13.0-17.5) Hematocrit 38.6 % (39.0-53.0) Mean Corpuscular Volume 91 fL (79-100) Mean Corpuscular Hemoglobin 30 pg (25-35) Mean Corpuscular Hemoglobin Concent 33 g/dL (31-37) Red Cell Distribution Width 14.1 % (11.5-14.5) Platelet Count 206 x10^3/uL (140-400) Neutrophils (%) (Auto) 62 % (31-73) Lymphocytes (%) (Auto) 27 % (24-48) Monocytes (%) (Auto) 7 % (0-9) Eosinophils (%) (Auto) 3 % (0-3) Basophils (%) (Auto) 1 % (0-3) Neutrophils # (Auto) 3.3 x10^3uL (1.8-7.7) Lymphocytes # (Auto) 1.4 x10^3/uL (1.0-4.8) Monocytes # (Auto) 0.4 x10^3/uL (0.0-1.1) Eosinophils # (Auto) 0.2 x10^3/uL (0.0-0.7) Basophils # (Auto) 0.0 x10^3/uL (0.0-0.2) Sodium Level 142 mmol/L (136-145) Potassium Level 3.9 mmol/L (3.5-5.1) Chloride Level 110 mmol/L (98-107) Carbon Dioxide Level 23 mmol/L (21-32) Anion Gap 9 (6-14) Blood Urea Nitrogen 21 mg/dL (8-26) Creatinine 1.2 mg/dL (0.7-1.3) Estimated GFR (Cockcroft-Gault) 63.8 Glucose Level 189 mg/dL (70-99) Calcium Level 8.5 mg/dL (8.5-10.1) Test 12/16/17 11:22 Glucose (Fingerstick) 117 mg/dL (70-99) Microbiology 12/11/17 Blood Culture - Final, Complete NO GROWTH AFTER 5 DAYS 12/11/17 Anaerobic/Aerobic Culture - Preliminary, Resulted 12/11/17 Anaerobic Culture Result 1 (HELIO) - Preliminary, Resulted 12/11/17 Aerobic Culture - Final, Resulted 12/11/17 Aerobic Culture Result 1 (HELIO) - Final, Resulted 12/11/17 Gram Stain - Final, Resulted 12/11/17 Gram Stain Result 1 (HELIO) - Final, Resulted 12/11/17 Gram Stain Result 2 (HELIO) - Final, Resulted Medications Current Medications Vancomycin HCl (Vanco Per Pharmacy) 1 each PRN DAILY PRN MC SEE COMMENTS; Start 12/11/17 at 11:45; Status UNV Fentanyl Citrate (Fentanyl 2ml Vial) 50 mcg 1X ONCE IV Last administered on at 12:13; Start 12/11/17 at 12:15; Stop 12/11/17 at 12:34; Status DC Vancomycin HCl 2 gm/Sodium Chloride 500 ml @ 250 mls/hr 1X ONCE IV Last administered on 12/11/17at 13:11; Start 12/11/17 at 12:45; Stop 12/11/17 at 14 :44; Status DC Sodium Chloride 1,000 ml @ 1,000 mls/hr 1X ONCE IV Last administered on 12/11at 12:59; Start 12/11/17 at 12:45; Stop 12/11/17 at 13:44; Status DC Morphine Sulfate (Morphine Sulfate) 4 mg 1X ONCE IV Last administered on 12/11at 12:59; Start 12/11/17 at 13:00; Stop 12/11/17 at 13:01; Status DC Ketamine HCl (Ketamine) 20 mg 1X ONCE IV Last administered on 12/11/17at 13:58 ; Start 12/11/17 at 13:45; Stop 12/11/17 at 13:46; Status DC Ondansetron HCl (Zofran) 4 mg PRN Q8HRS PRN IV NAUSEA/VOMITING; Start at 14:00; Stop 12/12/17 at 13:41; Status DC Morphine Sulfate (Morphine Sulfate) 4 mg PRN Q2HR PRN IV PAIN Last administered on 12/12/17at 10:27; Start 12/11/17 at 14:00; Stop 12/12/17 at 13 :42; Status DC Sodium Chloride 1,000 ml @ 80 mls/hr [id number] IV ; Start 12/11/17 at 14:30; Stop 12/11/17 at 20:30; Status DC Ondansetron HCl (Zofran) 4 mg PRN Q6HRS PRN IV NAUSEA/VOMITING; Start at 14:15; Stop 12/11/17 at 20:31; Status DC Fentanyl Citrate (Fentanyl 2ml Vial) 25 mcg PRN Q5MIN PRN IV MILD PAIN; Start 12/11/17 at 14:15; Stop 12/11/17 at 20:31; Status DC Fentanyl Citrate (Fentanyl 2ml Vial) 50 mcg PRN Q5MIN PRN IV MODERATE TO SEVERE PAIN Last administered on 12/11/17at 19:26; Start 12/11/17 at 14:15; Stop 12/11/17 at 20:31; Status DC Morphine Sulfate (Morphine Sulfate) 1 mg PRN Q10MIN PRN IV SEVERE PAIN; Start 12/11/17 at 14:15; Stop 12/11/17 at 20:31; Status DC Ringer's Solution 1,000 ml @ 30 mls/hr Q24H IV Last administered on at 16:32; Start 12/11/17 at 14:06; Stop 12/11/17 at 20:30; Status DC Lidocaine HCl (Xylocaine-Mpf 1% 2ml Vial) 2 ml 1X PRN PRN ID IV START; Start 12/11/17 at 14:15; Stop 12/11/17 at 20:31; Status DC Hydromorphone HCl (Dilaudid) 0.5 mg PRN Q10MIN PRN IV SEV PAIN, Second choice Last administered on 12/11/17at 20:00; Start 12/11/17 at 14:15; Stop 12/11/17 at 20:31; Status DC Prochlorperazine Edisylate (Compazine) 5 mg PACU PRN PRN IV NAUSEA, MRX1; Start 12/11/17 at 14:15; Stop 12/11/17 at 20:31; Status DC Acetaminophen (Tylenol) 650 mg PRN Q6HRS PRN PO FEVER; Start 12/11/17 at 14:15 Ondansetron HCl (Zofran) 4 mg PRN Q6HRS PRN IV NAUSEA/VOMITING Last administered on 12/11/17at 14:55; Start 12/11/17 at 14:15 Morphine Sulfate (Morphine Sulfate) 2 mg PRN Q2HR PRN IV MODERATE TO SEVERE PAIN; Start 12/11/17 at 14:15; Status UNV Tramadol HCl (Ultram) 50 mg PRN Q6HRS PRN PO MILD TO MODERATE PAIN Last administered on 12/12/17at 08:13; Start 12/11/17 at 14:15; Stop 12/12/17 at 09 :19; Status DC Docusate Sodium (Colace) 100 mg PRN DAILY PRN PO CONSTIPATION; Start 12/11/17 at 14:15 Labetalol HCl (Normodyne Iv Push) 20 mg PRN Q2HR PRN IVP HYPERTENSION, SEE COMMENTS; Start 12/11/17 at 14:15 Morphine Sulfate (Morphine Sulfate) 2 mg PRN Q2HR PRN IV MILD-MODERATE PAIN Last administered on 12/15/17at 21:23; Start 12/11/17 at 14:15 Morphine Sulfate (Morphine Sulfate) 4 mg PRN Q2HR PRN IV SEVERE PAIN Last administered on 12/15/17at 00:08; Start 12/11/17 at 14:15 Oxycodone/ Acetaminophen (Percocet 5/325) 1 tab PRN Q4HRS PRN PO PAIN Last administered on 12/15/17at 18:37; Start 12/11/17 at 14:15 Vancomycin HCl (Vanco Per Pharmacy) 1 each PRN DAILY PRN MC SEE COMMENTS Last administered on 12/11/17at 16:01; Start 12/11/17 at 14:15; Stop 12/12/17 at 09 :19; Status DC Vancomycin HCl 2 gm/Sodium Chloride 500 ml @ 250 mls/hr Q12H IV ; Start at 14:15; Status UNV Piperacillin Sod/ Tazobactam Sod 4.5 gm/Sodium Chloride 100 ml @ 200 mls/hr Q6HRS IV ; Start 12/11/17 at 18:00; Status UNV Piperacillin Sod/ Tazobactam Sod (Zosyn Per Pharmacy) 1 each PRN DAILY PRN MC SEE COMMENTS; Start 12/11/17 at 14:15 Insulin Human Lispro (HumaLOG) 0-9 UNITS TIDWMEALS SQ ; Start 12/11/17 at 17:00 Dextrose (Dextrose 50%-Water Syringe) 12.5 gm PRN Q15MIN PRN IV SEE COMMENTS; Start 12/11/17 at 14:15 Insulin Glargine (Lantus) 20 units QHS SQ Last administered on 12/11/17at 22:25 ; Start 12/11/17 at 21:00; Stop 12/12/17 at 11:55; Status DC Potassium Chloride/Sodium Chloride 1,000 ml @ 75 mls/hr [id number] IV Last administered on 12/13/17at 03:45; Start 12/11/17 at 16:00; Stop 12/13/17 at 13 :37; Status DC Piperacillin Sod/ Tazobactam Sod 3.375 gm/Sodium Chloride 50 ml @ 100 mls/hr 1X ONCE IV Last administered on 12/11/17at 15:07; Start 12/11/17 at 14:45; Stop 12/11/17 at 15:14; Status DC Piperacillin Sod/ Tazobactam Sod 3.375 gm/Sodium Chloride 50 ml @ 100 mls/hr Q6HRS IV Last administered on 12/16/17at 12:06; Start 12/11/17 at 19:00 Vancomycin HCl 1.5 gm/Sodium Chloride 500 ml @ 250 mls/hr Q8H IV Last administered on 12/12/17at 04:32; Start 12/11/17 at 21:00; Stop 12/12/17 at 09 :19; Status DC Vancomycin HCl (Vancomycin Trough Level) 1 each 1X ONCE MC ; Start 12/12/17 at 12:30; Stop 12/12/17 at 12:30; Status DC Lactobacillus Rhamnosus (Culturelle) 1 cap BID PO Last administered on at 08:56; Start 12/11/17 at 21:00 Ondansetron HCl (Zofran) 4 mg PRN Q6HRS PRN IV NAUSEA/VOMITING; Start at 16:30; Stop 12/11/17 at 20:31; Status DC Fentanyl Citrate (Fentanyl 2ml Vial) 25 mcg PRN Q5MIN PRN IV MILD PAIN; Start 12/11/17 at 16:30; Stop 12/11/17 at 20:31; Status DC Fentanyl Citrate (Fentanyl 2ml Vial) 50 mcg PRN Q5MIN PRN IV MODERATE TO SEVERE PAIN; Start 12/11/17 at 16:30; Stop 12/11/17 at 20:31; Status DC Morphine Sulfate (Morphine Sulfate) 1 mg PRN Q10MIN PRN IV SEVERE PAIN; Start 12/11/17 at 16:30; Stop 12/11/17 at 20:31; Status DC Ringer's Solution 1,000 ml @ 30 mls/hr Q24H IV ; Start 12/11/17 at 16:16; Stop 12/11/17 at 20:30; Status DC Lidocaine HCl (Xylocaine-Mpf 1% 2ml Vial) 2 ml 1X PRN PRN ID IV START; Start 12/11/17 at 16:30; Stop 12/11/17 at 20:31; Status DC Hydromorphone HCl (Dilaudid) 0.5 mg PRN Q10MIN PRN IV SEV PAIN, Second choice; Start 12/11/17 at 16:30; Stop 12/11/17 at 20:31; Status DC Prochlorperazine Edisylate (Compazine) 5 mg PACU PRN PRN IV NAUSEA, MRX1; Start 12/11/17 at 16:30; Stop 12/11/17 at 20:31; Status DC Fentanyl Citrate (Fentanyl 2ml Vial) 100 mcg STK-MED ONCE .ROUTE ; Start at 16:44; Stop 12/11/17 at 16:45; Status DC Fentanyl Citrate (Fentanyl 2ml Vial) 100 mcg STK-MED ONCE .ROUTE ; Start at 17:19; Stop 12/11/17 at 17:20; Status DC Midazolam HCl (Versed) 2 mg STK-MED ONCE .ROUTE ; Start 12/11/17 at 17:19; Stop 12/11/17 at 17:20; Status DC Propofol 20 ml @ As Directed STK-MED ONCE IV ; Start 12/11/17 at 17:25; Stop 12/11/17 at 17:26; Status DC Dexamethasone Sodium Phosphate (Decadron) 20 mg STK-MED ONCE .ROUTE ; Start at 17:25; Stop 12/11/17 at 17:26; Status DC Ketorolac Tromethamine (Toradol For Or Only) 30 mg STK-MED ONCE INJ ; Start at 17:25; Stop 12/11/17 at 17:26; Status DC Lidocaine HCl (Lidocaine Pf 2% Vial) 5 ml STK-MED ONCE .ROUTE ; Start 12/11/17 at 17:25; Stop 12/11/17 at 17:26; Status DC Ondansetron HCl (Zofran) 4 mg STK-MED ONCE .ROUTE ; Start 12/11/17 at 17:25; Stop 12/11/17 at 17:26; Status DC Fentanyl Citrate (Fentanyl 2ml Vial) 100 mcg STK-MED ONCE .ROUTE ; Start at 18:58; Stop 12/11/17 at 18:59; Status DC Hydromorphone HCl (Dilaudid) 2 mg STK-MED ONCE .ROUTE ; Start 12/11/17 at 18:59 ; Stop 12/11/17 at 19:00; Status DC Prochlorperazine Edisylate (Compazine) 10 mg STK-MED ONCE .ROUTE ; Start at 18:59; Stop 12/11/17 at 19:00; Status DC Influenza Virus Vaccine (Afluria Trivalent [id number] Syringe) 0.5 ml ONCE ONCE VAX IM Last administered on 12/12/17at 08:15; Start 12/12/17 at 09:00; Stop 12/12/17 at 09:01; Status DC Nicotine Polacrilex (Nicorette Gum) 1 each PRN Q1HR PRN BC SMOKING CESSATION Last administered on 12/15/17at 21:23; Start 12/11/17 at 22:15 Lorazepam (Ativan) 1 mg PRN Q6HRS PRN PO ANXIETY / AGITATION Last administered on 12/11/17at 22:49; Start 12/11/17 at 22:45 Linezolid (Zyvox) 600 mg BID PO Last administered on 12/16/17at 08:56; Start 12/12/17 at 10:00 Acetazolamide (Diamox) 250 mg BID PO Last administered on 12/16/17 08:56; Start 12/12/17 at 12:30 Atorvastatin Calcium (Lipitor) 10 mg HS PO Last administered on 12/15/17 21: 13; Start 12/12/17 at 21:00 Cyclobenzaprine HCl (Flexeril) 10 mg TID PO Last administered on 12/15/17 09: 26; Start 12/12/17 at 14:00 Glipizide (Glucotrol) 5 mg DAILY PO ; Start 12/13/17 at 09:00; Stop 12/13/17 at 09:00; Status DC Levothyroxine Sodium (Synthroid) 100 mcg DAILY06 PO Last administered on at 06:54; Start 12/12/17 at 12:30 Amitriptyline HCl (Elavil) 150 mg QHS PO Last administered on 12/15/17 21:12 ; Start 12/12/17 at 21:00 Hydroxyzine Pamoate (Vistaril) 25 mg TID@0700,1100,1600 PO Last administered on 12/16/17 12:06; Start 12/12/17 at 16:00 Hydroxyzine Pamoate (Vistaril) 50 mg QHS PO Last administered on 12/15/17 21: 12; Start 12/12/17 at 21:00 Meloxicam (Mobic) 15 mg DAILY PO Last administered on 12/16/17 08:56; Start 12/12/17 at 12:30 Insulin Glargine (Lantus) 40 units BID SQ Last administered on 12/12/17at 14:28 ; Start 12/12/17 at 12:30; Stop 12/13/17 at 09:07; Status DC Nicotine (Nicoderm Cq 14mg) 1 patch PRN DAILY PRN TD SMOKING CESSATION; Start 12/12/17 at 12:00 Glipizide (Glucotrol) 5 mg DAILY PO Last administered on 12/12/17at 14:15; Start 12/12/17 at 13:00; Stop 12/13/17 at 09:07; Status DC Insulin Glargine (Lantus) 20 units QHS SQ Last administered on 12/14/17at 21:33 ; Start 12/13/17 at 21:00; Stop 12/15/17 at 09:28; Status DC Potassium Chloride (Klor-Con) 40 meq 1X ONCE PO Last administered on at 14:21; Start 12/13/17 at 14:00; Stop 12/13/17 at 14:01; Status DC Heparin Sodium (Porcine) (Heparin Sodium) 5,000 unit Q8HRS SQ Last administered on 12/13/17at 20:46; Start 12/13/17 at 14:00 Propofol 20 ml @ As Directed STK-MED ONCE IV ; Start 12/14/17 at 12:30; Stop 12/14/17 at 12:31; Status DC Ketamine HCl (Ketamine) 50 mg STK-MED ONCE .ROUTE ; Start 12/14/17 at 12:30; Stop 12/14/17 at 12:31; Status DC Midazolam HCl (Versed) 2 mg STK-MED ONCE .ROUTE ; Start 12/14/17 at 12:30; Stop 12/14/17 at 12:31; Status DC Propofol 50 ml @ As Directed STK-MED ONCE IV ; Start 12/14/17 at 13:03; Stop 12/14/17 at 13:04; Status DC Propofol 50 ml @ As Directed STK-MED ONCE IV ; Start 12/14/17 at 13:29; Stop 12/14/17 at 13:30; Status DC Ringer's Solution 1,000 ml @ 100 mls/hr Q10H IV Last administered on at 12:30; Start 12/14/17 at 12:01; Stop 12/15/17 at 02:49; Status DC Insulin Glargine (Lantus) 15 units QHS SQ Last administered on 12/15/17at 21:15 ; Start 12/15/17 at 21:00 Active Scripts Active Reported Hydroxyzine Hcl 50 Mg Tablet 50 Mg PO QHS Hydroxyzine Hcl 25 Mg Tablet 25 Mg PO TID Acetazolamide 250 Mg Tablet 250 Mg PO BID Novolin N (Nph, Human Insulin Isophane) 100 Unit/1 Ml Vial 40 Unit SQ BID Potassium Chloride 10 Meq Tab.sr.24h 10 Meq PO TID Meloxicam 15 Mg Tablet 15 Mg PO DAILY Cyclobenzaprine Hcl 10 Mg Tablet 10 Mg PO TID Levothyroxine Sodium 100 Mcg Tablet 1 Tab PO DAILY Metformin Hcl 850 Mg Tablet 850 Mg PO BIDWMEALS Glipizide 5 Mg Tablet 5 Mg PO DAILY Atorvastatin Calcium 10 Mg Tablet 10 Mg PO HS Amitriptyline Hcl 150 Mg Tablet 1 Tab PO QHS Vitals/I & O Vital Sign - Last 24 Hours 12/15/17 12/15/17 12/15/17 12/15/17 13:08 15:00 18:37 19:59 Temp 97.8 97.6 97.8 97.6 Pulse 74 69 Resp 20 19 B/P (MAP) 114/67 (83) 117/75 (89) Pulse Ox 97 100 O2 Delivery Room Air Room Air Room Air Room Air 12/15/17 12/16/17 12/16/17 12/16/17 22:45 03:09 07:00 08:00 Temp 97.4 98.0 98.0 97.4 98.0 98.0 Pulse 79 79 80 Resp 20 18 20 B/P (MAP) 119/63 (81) 101/61 (74) 109/54 (72) Pulse Ox 100 96 96 O2 Delivery Room Air Room Air Room Air Room Air 12/16/17 11:00 Temp 98.0 98.0 Pulse 79 Resp 20 B/P (MAP) 120/75 (90) Pulse Ox 98 O2 Delivery Room Air Intake and Output 12/15/17 12/15/17 12/16/17 15:00 23:00 07:00 Intake Total 600 ml 1300 ml 120 ml Balance 600 ml 1300 ml 120 ml STEVEN BURNETTE MD Dec 16, 2017 12:46
[2017-12-16 15:00] VITALS: BP 121/74
[2017-12-16] MEDS: oxyCODONE/APAP 5/325 1 TAB TABLET PO PRN ×2 (16:50→20:58)
[2017-12-16 19:00] VITALS: BP 131/81
[2017-12-16] MEDS: AMITRIPTYLINE HCL 50 MG TABLET PO SCH (20:57)
[2017-12-16] MEDS: ATORVASTATIN CALCIUM 10 MG TABLET. PO SCH (20:57)
[2017-12-16] MEDS: MORPHINE SULFATE 2 MG/ML VIAL. IV PRN (20:58)
[2017-12-16] MEDS: INSULIN GLARGINE 300 UNITS/3 ML INSULN.PEN. SQ SCH (21:27)
--- NOTE | 2017-12-16 22:03 | PDOC ---
PROGRESS NOTES Subjective Subjective Problems overnight: Right ring finger still very tender red and swollen Objective Vital Signs Vital Signs Date Time Temp Pulse Resp B/P (MAP) Pulse Ox O2 Delivery O2 Flow Rate FiO2 12/16/17 17:50 99 Room Air 8.0 12/16/17 15:00 98.1 70 20 121/74 (90) 98.1 Physical Exam Significant purulent drainage on dressings, he is still quite red and swollen and has pain with motion Labs Laboratory Tests Test 12/15/17 03:40 12/15/17 07:45 12/15/17 11:31 12/15/17 16:54 White Blood Count 6.3 x10^3/uL (4.0-11.0) Red Blood Count 4.14 x10^6/uL (4.30-5.70) Hemoglobin 12.6 g/dL (13.0-17.5) Hematocrit 37.2 % (39.0-53.0) Mean Corpuscular Volume 90 fL (79-100) Mean Corpuscular Hemoglobin 31 pg (25-35) Mean Corpuscular Hemoglobin Concent 34 g/dL (31-37) Red Cell Distribution Width 14.3 % (11.5-14.5) Platelet Count 204 x10^3/uL (140-400) Neutrophils (%) (Auto) 64 % (31-73) Lymphocytes (%) (Auto) 27 % (24-48) Monocytes (%) (Auto) 6 % (0-9) Eosinophils (%) (Auto) 3 % (0-3) Basophils (%) (Auto) 0 % (0-3) Neutrophils # (Auto) 4.0 x10^3uL (1.8-7.7) Lymphocytes # (Auto) 1.7 x10^3/uL (1.0-4.8) Monocytes # (Auto) 0.4 x10^3/uL (0.0-1.1) Eosinophils # (Auto) 0.2 x10^3/uL (0.0-0.7) Basophils # (Auto) 0.0 x10^3/uL (0.0-0.2) Sodium Level 142 mmol/L (136-145) Potassium Level 3.9 mmol/L (3.5-5.1) Chloride Level 110 mmol/L (98-107) Carbon Dioxide Level 22 mmol/L (21-32) Anion Gap 10 (6-14) Blood Urea Nitrogen 12 mg/dL (8-26) Creatinine 1.2 mg/dL (0.7-1.3) Estimated GFR (Cockcroft-Gault) 63.8 Glucose Level 96 mg/dL (70-99) Calcium Level 8.2 mg/dL (8.5-10.1) Glucose (Fingerstick) 112 mg/dL (70-99) 77 mg/dL (70-99) 97 mg/dL (70-99) Test 12/15/17 22:00 12/16/17 04:25 12/16/17 07:36 12/16/17 11:22 Glucose (Fingerstick) 97 mg/dL (70-99) 123 mg/dL (70-99) 117 mg/dL (70-99) White Blood Count 5.3 x10^3/uL (4.0-11.0) Red Blood Count 4.25 x10^6/uL (4.30-5.70) Hemoglobin 12.8 g/dL (13.0-17.5) Hematocrit 38.6 % (39.0-53.0) Mean Corpuscular Volume 91 fL (79-100) Mean Corpuscular Hemoglobin 30 pg (25-35) Mean Corpuscular Hemoglobin Concent 33 g/dL (31-37) Red Cell Distribution Width 14.1 % (11.5-14.5) Platelet Count 206 x10^3/uL (140-400) Neutrophils (%) (Auto) 62 % (31-73) Lymphocytes (%) (Auto) 27 % (24-48) Monocytes (%) (Auto) 7 % (0-9) Eosinophils (%) (Auto) 3 % (0-3) Basophils (%) (Auto) 1 % (0-3) Neutrophils # (Auto) 3.3 x10^3uL (1.8-7.7) Lymphocytes # (Auto) 1.4 x10^3/uL (1.0-4.8) Monocytes # (Auto) 0.4 x10^3/uL (0.0-1.1) Eosinophils # (Auto) 0.2 x10^3/uL (0.0-0.7) Basophils # (Auto) 0.0 x10^3/uL (0.0-0.2) Sodium Level 142 mmol/L (136-145) Potassium Level 3.9 mmol/L (3.5-5.1) Chloride Level 110 mmol/L (98-107) Carbon Dioxide Level 23 mmol/L (21-32) Anion Gap 9 (6-14) Blood Urea Nitrogen 21 mg/dL (8-26) Creatinine 1.2 mg/dL (0.7-1.3) Estimated GFR (Cockcroft-Gault) 63.8 Glucose Level 189 mg/dL (70-99) Calcium Level 8.5 mg/dL (8.5-10.1) Test 12/16/17 16:51 12/16/17 21:21 Glucose (Fingerstick) 72 mg/dL (70-99) 147 mg/dL (70-99) Laboratory Tests Test 12/16/17 04:25 12/16/17 07:36 12/16/17 11:22 12/16/17 16:51 White Blood Count 5.3 x10^3/uL (4.0-11.0) Red Blood Count 4.25 x10^6/uL (4.30-5.70) Hemoglobin 12.8 g/dL (13.0-17.5) Hematocrit 38.6 % (39.0-53.0) Mean Corpuscular Volume 91 fL (79-100) Mean Corpuscular Hemoglobin 30 pg (25-35) Mean Corpuscular Hemoglobin Concent 33 g/dL (31-37) Red Cell Distribution Width 14.1 % (11.5-14.5) Platelet Count 206 x10^3/uL (140-400) Neutrophils (%) (Auto) 62 % (31-73) Lymphocytes (%) (Auto) 27 % (24-48) Monocytes (%) (Auto) 7 % (0-9) Eosinophils (%) (Auto) 3 % (0-3) Basophils (%) (Auto) 1 % (0-3) Neutrophils # (Auto) 3.3 x10^3uL (1.8-7.7) Lymphocytes # (Auto) 1.4 x10^3/uL (1.0-4.8) Monocytes # (Auto) 0.4 x10^3/uL (0.0-1.1) Eosinophils # (Auto) 0.2 x10^3/uL (0.0-0.7) Basophils # (Auto) 0.0 x10^3/uL (0.0-0.2) Sodium Level 142 mmol/L (136-145) Potassium Level 3.9 mmol/L (3.5-5.1) Chloride Level 110 mmol/L (98-107) Carbon Dioxide Level 23 mmol/L (21-32) Anion Gap 9 (6-14) Blood Urea Nitrogen 21 mg/dL (8-26) Creatinine 1.2 mg/dL (0.7-1.3) Estimated GFR (Cockcroft-Gault) 63.8 Glucose Level 189 mg/dL (70-99) Calcium Level 8.5 mg/dL (8.5-10.1) Glucose (Fingerstick) 123 mg/dL (70-99) 117 mg/dL (70-99) 72 mg/dL (70-99) Test 12/16/17 21:21 Glucose (Fingerstick) 147 mg/dL (70-99) Assessment Assessment POD# [], S/P [2 irrigation debridement months for right ring finger tenosynovitis] Plan Plan of Care Since he is more tender with significant drainage I think another irrigation debridement procedure is warranted. His response otherwise based on the blood tests appears to be improving, cultures are negative he does have a history of MRSA. He agreed to proceed with surgical evaluation which will occur tomorrow depending on operating room availability MIRELA SALCIDO MD Dec 16, 2017 22:03
[2017-12-16 23:00] VITALS: BP 109/52
[2017-12-17] MEDS: PIPERACILLIN/TAZOBACTAM 3.375 GM in IV NORMAL SALINE 50ML 50 ML IV SCH ×4 (00:06→17:58)
[2017-12-17 03:00] VITALS: BP 113/63
[2017-12-17 04:05] LABS: BASO % 1 % (0-3); EOS # 0.2 x10^3/uL (0.0-0.7); EOS % 3 % (0-3); HEMATOCRIT 38.7 % (39.0-53.0); HEMOGLOBIN 13.3 g/dL (13.0-17.5); LYMPH # 1.8 x10^3/uL (1.0-4.8); LYMPH % 30 % (24-48); MEAN CORPUSCULAR HEMOGLOBIN 31 pg (25-35); MEAN CORPUSCULAR HGB CONC 34 g/dL (31-37); MEAN CORPUSCULAR VOLUME 89 fL (79-100); MONO # 0.5 x10^3/uL (0.0-1.1); MONO % 8 % (0-9); NEUT # 3.5 x10^3uL (1.8-7.7); NEUT % 59 % (31-73); PLATELET COUNT 213 x10^3/uL (140-400); RED BLOOD COUNT 4.33 x10^6/uL (4.30-5.70); RED CELL DISTRIBUTION WIDTH 14.2 % (11.5-14.5)
[2017-12-17 04:31] LABS: CALCIUM 8.3 mg/dL (8.5-10.1); GFR 78.8; POTASSIUM 3.9 mmol/L (3.5-5.1)
[2017-12-17] MEDS: HEPARIN for SUB-Q USE 5,000 UNIT/ML VIAL. SQ SCH ×3 (05:40→21:07)
[2017-12-17 07:00] VITALS: BP 108/61
[2017-12-17] MEDS: LEVOTHYROXINE 100 MCG TABLET PO SCH (07:05)
[2017-12-17] MEDS: hydrOXYzine PAMOATE 25 MG CAPSULE PO SCH ×4 (07:05→21:02)
[2017-12-17] MEDS ORDERED: IV RINGERS,LACTATED 1000ML 1,000 ML IV SCH (07:29)
[2017-12-17] MEDS ORDERED: MORPHINE SULFATE 2 MG/ML VIAL. IV PRN (07:30)
[2017-12-17] MEDS ORDERED: LIDOCAINE 1% PF 2 ML VIAL. ID PRN (07:30)
[2017-12-17] MEDS ORDERED: ONDANSETRON PF 4 MG/2 ML VIAL. IV PRN (07:30)
[2017-12-17] MEDS: INSULIN LISPRO 300 UNITS/3 ML INSULN.PEN. SQ SCH ×3 (08:00→17:00)
[2017-12-17] MEDS: acetaZOLAMIDE 250 MG TABLET. PO SCH ×2 (08:18→21:03)
[2017-12-17] MEDS: LACTOBACILLUS RHAMNOSUS GG 1 CAPSULE. PO SCH ×2 (08:18→21:03)
[2017-12-17] MEDS: LINEZOLID 600 MG TABLET PO SCH ×2 (08:18→21:03)
[2017-12-17] MEDS: CYCLOBENZAPRINE 10 MG TABLET. PO SCH ×3 (08:18→21:03)
[2017-12-17] MEDS: MELOXICAM 7.5 MG TABLET PO SCH (08:18)
[2017-12-17] MEDS: oxyCODONE/APAP 5/325 1 TAB TABLET PO PRN ×2 (08:19→15:09)
--- NOTE | 2017-12-17 10:38 | PDOC ---
PROGRESS NOTES Chief Complaint Chief Complaint rt 4th finger tenosynovitis s/p i an d on 12/11 , 12/14 sepsis chronic hypokalemia dm2 hypothyroidism muscular dystrophy restless leg syndrome elevated lactate tobaccoism plan: fu with ortho, ID pt required regular diet, ok for now given sugar not very high cont home meds decrease lantus to 15u qhs for now, ssi, dced glipizide. labetolol prn for htn dvt ppx tmr if ok with sx pain control with both po and iv meds prn vanco, zosyn for now, fu bx, ID consulted, change to zyvox, and zosyn, fu wound cx, bcx neg so far. nicotine patch prn, gum prn. replete K History of Present Illness History of Present Illness For OR later by orthopedics Patient seen and examined, no complaints today ROS: no fever, chills, sob or chest pain EARLIER ENTRY: got i and d on 12/11, 12/14 has a drain fell off night of 12/13 12/15, better pain 12/16: drain out last night, still some pain not taking glipizide daily at home glucose has been lower side PLAN: OR later, post op labs tmr Vitals Vitals Vital Signs Date Time Temp Pulse Resp B/P (MAP) Pulse Ox O2 Delivery O2 Flow Rate FiO2 12/17/17 08:19 16 Room Air 12/17/17 07:00 97.8 74 108/61 (77) 98 97.8 12/16/17 17:50 8.0 Physical Exam Physical Exam GENERAL: Lying down, alert, NAD HEENT: Oral cavity, pharynx is clear. LUNGS: Clear to auscultation. HEART: S1, S2. ABDOMEN: Obese, soft, nontender, nondistended with positive bowel sounds. EXTREMITIES: Right hand dressed. Fingers swollen. NVI with good cap refill. wiggles fingers, warm SKIN: Without signs of gross rash. NEUROLOGIC: Alert, responds appropriately General: Alert, Oriented X3, Cooperative Heart: Regular rate, Normal S1, Normal S2 Lungs: Clear Abdomen: Normal bowel sounds, Soft Extremities: No clubbing, No cyanosis Skin: No rashes Labs LABS Laboratory Tests Test 12/16/17 11:22 12/16/17 16:51 12/16/17 21:21 12/17/17 03:10 Glucose (Fingerstick) 117 mg/dL (70-99) 72 mg/dL (70-99) 147 mg/dL (70-99) White Blood Count 6.0 x10^3/uL (4.0-11.0) Red Blood Count 4.33 x10^6/uL (4.30-5.70) Hemoglobin 13.3 g/dL (13.0-17.5) Hematocrit 38.7 % (39.0-53.0) Mean Corpuscular Volume 89 fL (79-100) Mean Corpuscular Hemoglobin 31 pg (25-35) Mean Corpuscular Hemoglobin Concent 34 g/dL (31-37) Red Cell Distribution Width 14.2 % (11.5-14.5) Platelet Count 213 x10^3/uL (140-400) Neutrophils (%) (Auto) 59 % (31-73) Lymphocytes (%) (Auto) 30 % (24-48) Monocytes (%) (Auto) 8 % (0-9) Eosinophils (%) (Auto) 3 % (0-3) Basophils (%) (Auto) 1 % (0-3) Neutrophils # (Auto) 3.5 x10^3uL (1.8-7.7) Lymphocytes # (Auto) 1.8 x10^3/uL (1.0-4.8) Monocytes # (Auto) 0.5 x10^3/uL (0.0-1.1) Eosinophils # (Auto) 0.2 x10^3/uL (0.0-0.7) Basophils # (Auto) 0.0 x10^3/uL (0.0-0.2) Sodium Level 141 mmol/L (136-145) Potassium Level 3.9 mmol/L (3.5-5.1) Chloride Level 110 mmol/L (98-107) Carbon Dioxide Level 20 mmol/L (21-32) Anion Gap 11 (6-14) Blood Urea Nitrogen 17 mg/dL (8-26) Creatinine 1.0 mg/dL (0.7-1.3) Estimated GFR (Cockcroft-Gault) 78.8 Glucose Level 140 mg/dL (70-99) Calcium Level 8.3 mg/dL (8.5-10.1) Test 12/17/17 07:46 Glucose (Fingerstick) 92 mg/dL (70-99) Assessment and Plan Assessmemt and Plan Problems Medical Problems: (1) Cellulitis of hand Status: Acute Comment Review of Relevant I have reviewed the following items chema (where applicable) has been applied. Labs Laboratory Tests Test 12/15/17 11:31 12/15/17 16:54 12/15/17 22:00 12/16/17 04:25 Glucose (Fingerstick) 77 mg/dL (70-99) 97 mg/dL (70-99) 97 mg/dL (70-99) White Blood Count 5.3 x10^3/uL (4.0-11.0) Red Blood Count 4.25 x10^6/uL (4.30-5.70) Hemoglobin 12.8 g/dL (13.0-17.5) Hematocrit 38.6 % (39.0-53.0) Mean Corpuscular Volume 91 fL (79-100) Mean Corpuscular Hemoglobin 30 pg (25-35) Mean Corpuscular Hemoglobin Concent 33 g/dL (31-37) Red Cell Distribution Width 14.1 % (11.5-14.5) Platelet Count 206 x10^3/uL (140-400) Neutrophils (%) (Auto) 62 % (31-73) Lymphocytes (%) (Auto) 27 % (24-48) Monocytes (%) (Auto) 7 % (0-9) Eosinophils (%) (Auto) 3 % (0-3) Basophils (%) (Auto) 1 % (0-3) Neutrophils # (Auto) 3.3 x10^3uL (1.8-7.7) Lymphocytes # (Auto) 1.4 x10^3/uL (1.0-4.8) Monocytes # (Auto) 0.4 x10^3/uL (0.0-1.1) Eosinophils # (Auto) 0.2 x10^3/uL (0.0-0.7) Basophils # (Auto) 0.0 x10^3/uL (0.0-0.2) Sodium Level 142 mmol/L (136-145) Potassium Level 3.9 mmol/L (3.5-5.1) Chloride Level 110 mmol/L (98-107) Carbon Dioxide Level 23 mmol/L (21-32) Anion Gap 9 (6-14) Blood Urea Nitrogen 21 mg/dL (8-26) Creatinine 1.2 mg/dL (0.7-1.3) Estimated GFR (Cockcroft-Gault) 63.8 Glucose Level 189 mg/dL (70-99) Calcium Level 8.5 mg/dL (8.5-10.1) Test 12/16/17 07:36 12/16/17 11:22 12/16/17 16:51 12/16/17 21:21 Glucose (Fingerstick) 123 mg/dL (70-99) 117 mg/dL (70-99) 72 mg/dL (70-99) 147 mg/dL (70-99) Test 12/17/17 03:10 12/17/17 07:46 White Blood Count 6.0 x10^3/uL (4.0-11.0) Red Blood Count 4.33 x10^6/uL (4.30-5.70) Hemoglobin 13.3 g/dL (13.0-17.5) Hematocrit 38.7 % (39.0-53.0) Mean Corpuscular Volume 89 fL (79-100) Mean Corpuscular Hemoglobin 31 pg (25-35) Mean Corpuscular Hemoglobin Concent 34 g/dL (31-37) Red Cell Distribution Width 14.2 % (11.5-14.5) Platelet Count 213 x10^3/uL (140-400) Neutrophils (%) (Auto) 59 % (31-73) Lymphocytes (%) (Auto) 30 % (24-48) Monocytes (%) (Auto) 8 % (0-9) Eosinophils (%) (Auto) 3 % (0-3) Basophils (%) (Auto) 1 % (0-3) Neutrophils # (Auto) 3.5 x10^3uL (1.8-7.7) Lymphocytes # (Auto) 1.8 x10^3/uL (1.0-4.8) Monocytes # (Auto) 0.5 x10^3/uL (0.0-1.1) Eosinophils # (Auto) 0.2 x10^3/uL (0.0-0.7) Basophils # (Auto) 0.0 x10^3/uL (0.0-0.2) Sodium Level 141 mmol/L (136-145) Potassium Level 3.9 mmol/L (3.5-5.1) Chloride Level 110 mmol/L (98-107) Carbon Dioxide Level 20 mmol/L (21-32) Anion Gap 11 (6-14) Blood Urea Nitrogen 17 mg/dL (8-26) Creatinine 1.0 mg/dL (0.7-1.3) Estimated GFR (Cockcroft-Gault) 78.8 Glucose Level 140 mg/dL (70-99) Calcium Level 8.3 mg/dL (8.5-10.1) Glucose (Fingerstick) 92 mg/dL (70-99) Laboratory Tests Test 12/16/17 11:22 12/16/17 16:51 12/16/17 21:21 12/17/17 03:10 Glucose (Fingerstick) 117 mg/dL (70-99) 72 mg/dL (70-99) 147 mg/dL (70-99) White Blood Count 6.0 x10^3/uL (4.0-11.0) Red Blood Count 4.33 x10^6/uL (4.30-5.70) Hemoglobin 13.3 g/dL (13.0-17.5) Hematocrit 38.7 % (39.0-53.0) Mean Corpuscular Volume 89 fL (79-100) Mean Corpuscular Hemoglobin 31 pg (25-35) Mean Corpuscular Hemoglobin Concent 34 g/dL (31-37) Red Cell Distribution Width 14.2 % (11.5-14.5) Platelet Count 213 x10^3/uL (140-400) Neutrophils (%) (Auto) 59 % (31-73) Lymphocytes (%) (Auto) 30 % (24-48) Monocytes (%) (Auto) 8 % (0-9) Eosinophils (%) (Auto) 3 % (0-3) Basophils (%) (Auto) 1 % (0-3) Neutrophils # (Auto) 3.5 x10^3uL (1.8-7.7) Lymphocytes # (Auto) 1.8 x10^3/uL (1.0-4.8) Monocytes # (Auto) 0.5 x10^3/uL (0.0-1.1) Eosinophils # (Auto) 0.2 x10^3/uL (0.0-0.7) Basophils # (Auto) 0.0 x10^3/uL (0.0-0.2) Sodium Level 141 mmol/L (136-145) Potassium Level 3.9 mmol/L (3.5-5.1) Chloride Level 110 mmol/L (98-107) Carbon Dioxide Level 20 mmol/L (21-32) Anion Gap 11 (6-14) Blood Urea Nitrogen 17 mg/dL (8-26) Creatinine 1.0 mg/dL (0.7-1.3) Estimated GFR (Cockcroft-Gault) 78.8 Glucose Level 140 mg/dL (70-99) Calcium Level 8.3 mg/dL (8.5-10.1) Test 12/17/17 07:46 Glucose (Fingerstick) 92 mg/dL (70-99) Microbiology 12/11/17 Blood Culture - Final, Complete NO GROWTH AFTER 5 DAYS 12/11/17 Anaerobic/Aerobic Culture - Preliminary, Resulted 12/11/17 Anaerobic Culture Result 1 (HELIO) - Preliminary, Resulted 12/11/17 Aerobic Culture - Final, Resulted 12/11/17 Aerobic Culture Result 1 (HELIO) - Final, Resulted 12/11/17 Gram Stain - Final, Resulted 12/11/17 Gram Stain Result 1 (HELIO) - Final, Resulted 12/11/17 Gram Stain Result 2 (HELIO) - Final, Resulted Medications Current Medications Vancomycin HCl (Vanco Per Pharmacy) 1 each PRN DAILY PRN MC SEE COMMENTS; Start 12/11/17 at 11:45; Status UNV Fentanyl Citrate (Fentanyl 2ml Vial) 50 mcg 1X ONCE IV Last administered on at 12:13; Start 12/11/17 at 12:15; Stop 12/11/17 at 12:34; Status DC Vancomycin HCl 2 gm/Sodium Chloride 500 ml @ 250 mls/hr 1X ONCE IV Last administered on 12/11/17at 13:11; Start 12/11/17 at 12:45; Stop 12/11/17 at 14 :44; Status DC Sodium Chloride 1,000 ml @ 1,000 mls/hr 1X ONCE IV Last administered on 12/11at 12:59; Start 12/11/17 at 12:45; Stop 12/11/17 at 13:44; Status DC Morphine Sulfate (Morphine Sulfate) 4 mg 1X ONCE IV Last administered on 12/11at 12:59; Start 12/11/17 at 13:00; Stop 12/11/17 at 13:01; Status DC Ketamine HCl (Ketamine) 20 mg 1X ONCE IV Last administered on 12/11/17at 13:58 ; Start 12/11/17 at 13:45; Stop 12/11/17 at 13:46; Status DC Ondansetron HCl (Zofran) 4 mg PRN Q8HRS PRN IV NAUSEA/VOMITING; Start at 14:00; Stop 12/12/17 at 13:41; Status DC Morphine Sulfate (Morphine Sulfate) 4 mg PRN Q2HR PRN IV PAIN Last administered on 12/12/17at 10:27; Start 12/11/17 at 14:00; Stop 12/12/17 at 13 :42; Status DC Sodium Chloride 1,000 ml @ 80 mls/hr [id number] IV ; Start 12/11/17 at 14:30; Stop 12/11/17 at 20:30; Status DC Ondansetron HCl (Zofran) 4 mg PRN Q6HRS PRN IV NAUSEA/VOMITING; Start at 14:15; Stop 12/11/17 at 20:31; Status DC Fentanyl Citrate (Fentanyl 2ml Vial) 25 mcg PRN Q5MIN PRN IV MILD PAIN; Start 12/11/17 at 14:15; Stop 12/11/17 at 20:31; Status DC Fentanyl Citrate (Fentanyl 2ml Vial) 50 mcg PRN Q5MIN PRN IV MODERATE TO SEVERE PAIN Last administered on 12/11/17at 19:26; Start 12/11/17 at 14:15; Stop 12/11/17 at 20:31; Status DC Morphine Sulfate (Morphine Sulfate) 1 mg PRN Q10MIN PRN IV SEVERE PAIN; Start 12/11/17 at 14:15; Stop 12/11/17 at 20:31; Status DC Ringer's Solution 1,000 ml @ 30 mls/hr Q24H IV Last administered on at 16:32; Start 12/11/17 at 14:06; Stop 12/11/17 at 20:30; Status DC Lidocaine HCl (Xylocaine-Mpf 1% 2ml Vial) 2 ml 1X PRN PRN ID IV START; Start 12/11/17 at 14:15; Stop 12/11/17 at 20:31; Status DC Hydromorphone HCl (Dilaudid) 0.5 mg PRN Q10MIN PRN IV SEV PAIN, Second choice Last administered on 12/11/17at 20:00; Start 12/11/17 at 14:15; Stop 12/11/17 at 20:31; Status DC Prochlorperazine Edisylate (Compazine) 5 mg PACU PRN PRN IV NAUSEA, MRX1; Start 12/11/17 at 14:15; Stop 12/11/17 at 20:31; Status DC Acetaminophen (Tylenol) 650 mg PRN Q6HRS PRN PO FEVER; Start 12/11/17 at 14:15 Ondansetron HCl (Zofran) 4 mg PRN Q6HRS PRN IV NAUSEA/VOMITING Last administered on 12/11/17at 14:55; Start 12/11/17 at 14:15 Morphine Sulfate (Morphine Sulfate) 2 mg PRN Q2HR PRN IV MODERATE TO SEVERE PAIN; Start 12/11/17 at 14:15; Status UNV Tramadol HCl (Ultram) 50 mg PRN Q6HRS PRN PO MILD TO MODERATE PAIN Last administered on 12/12/17at 08:13; Start 12/11/17 at 14:15; Stop 12/12/17 at 09 :19; Status DC Docusate Sodium (Colace) 100 mg PRN DAILY PRN PO CONSTIPATION; Start 12/11/17 at 14:15 Labetalol HCl (Normodyne Iv Push) 20 mg PRN Q2HR PRN IVP HYPERTENSION, SEE COMMENTS; Start 12/11/17 at 14:15 Morphine Sulfate (Morphine Sulfate) 2 mg PRN Q2HR PRN IV MILD-MODERATE PAIN Last administered on 12/16/17at 20:58; Start 12/11/17 at 14:15 Morphine Sulfate (Morphine Sulfate) 4 mg PRN Q2HR PRN IV SEVERE PAIN Last administered on 12/15/17at 00:08; Start 12/11/17 at 14:15 Oxycodone/ Acetaminophen (Percocet 5/325) 1 tab PRN Q4HRS PRN PO PAIN Last administered on 12/17/17at 08:19; Start 12/11/17 at 14:15 Vancomycin HCl (Vanco Per Pharmacy) 1 each PRN DAILY PRN MC SEE COMMENTS Last administered on 12/11/17at 16:01; Start 12/11/17 at 14:15; Stop 12/12/17 at 09 :19; Status DC Vancomycin HCl 2 gm/Sodium Chloride 500 ml @ 250 mls/hr Q12H IV ; Start at 14:15; Status UNV Piperacillin Sod/ Tazobactam Sod 4.5 gm/Sodium Chloride 100 ml @ 200 mls/hr Q6HRS IV ; Start 12/11/17 at 18:00; Status UNV Piperacillin Sod/ Tazobactam Sod (Zosyn Per Pharmacy) 1 each PRN DAILY PRN MC SEE COMMENTS; Start 12/11/17 at 14:15 Insulin Human Lispro (HumaLOG) 0-9 UNITS TIDWMEALS SQ ; Start 12/11/17 at 17:00 Dextrose (Dextrose 50%-Water Syringe) 12.5 gm PRN Q15MIN PRN IV SEE COMMENTS; Start 12/11/17 at 14:15 Insulin Glargine (Lantus) 20 units QHS SQ Last administered on 12/11/17at 22:25 ; Start 12/11/17 at 21:00; Stop 12/12/17 at 11:55; Status DC Potassium Chloride/Sodium Chloride 1,000 ml @ 75 mls/hr [id number] IV Last administered on 12/13/17at 03:45; Start 12/11/17 at 16:00; Stop 12/13/17 at 13 :37; Status DC Piperacillin Sod/ Tazobactam Sod 3.375 gm/Sodium Chloride 50 ml @ 100 mls/hr 1X ONCE IV Last administered on 12/11/17at 15:07; Start 12/11/17 at 14:45; Stop 12/11/17 at 15:14; Status DC Piperacillin Sod/ Tazobactam Sod 3.375 gm/Sodium Chloride 50 ml @ 100 mls/hr Q6HRS IV Last administered on 12/17/17at 05:59; Start 12/11/17 at 19:00 Vancomycin HCl 1.5 gm/Sodium Chloride 500 ml @ 250 mls/hr Q8H IV Last administered on 12/12/17at 04:32; Start 12/11/17 at 21:00; Stop 12/12/17 at 09 :19; Status DC Vancomycin HCl (Vancomycin Trough Level) 1 each 1X ONCE MC ; Start 12/12/17 at 12:30; Stop 12/12/17 at 12:30; Status DC Lactobacillus Rhamnosus (Culturelle) 1 cap BID PO Last administered on at 08:18; Start 12/11/17 at 21:00 Ondansetron HCl (Zofran) 4 mg PRN Q6HRS PRN IV NAUSEA/VOMITING; Start at 16:30; Stop 12/11/17 at 20:31; Status DC Fentanyl Citrate (Fentanyl 2ml Vial) 25 mcg PRN Q5MIN PRN IV MILD PAIN; Start 12/11/17 at 16:30; Stop 12/11/17 at 20:31; Status DC Fentanyl Citrate (Fentanyl 2ml Vial) 50 mcg PRN Q5MIN PRN IV MODERATE TO SEVERE PAIN; Start 12/11/17 at 16:30; Stop 12/11/17 at 20:31; Status DC Morphine Sulfate (Morphine Sulfate) 1 mg PRN Q10MIN PRN IV SEVERE PAIN; Start 12/11/17 at 16:30; Stop 12/11/17 at 20:31; Status DC Ringer's Solution 1,000 ml @ 30 mls/hr Q24H IV ; Start 12/11/17 at 16:16; Stop 12/11/17 at 20:30; Status DC Lidocaine HCl (Xylocaine-Mpf 1% 2ml Vial) 2 ml 1X PRN PRN ID IV START; Start 12/11/17 at 16:30; Stop 12/11/17 at 20:31; Status DC Hydromorphone HCl (Dilaudid) 0.5 mg PRN Q10MIN PRN IV SEV PAIN, Second choice; Start 12/11/17 at 16:30; Stop 12/11/17 at 20:31; Status DC Prochlorperazine Edisylate (Compazine) 5 mg PACU PRN PRN IV NAUSEA, MRX1; Start 12/11/17 at 16:30; Stop 12/11/17 at 20:31; Status DC Fentanyl Citrate (Fentanyl 2ml Vial) 100 mcg STK-MED ONCE .ROUTE ; Start at 16:44; Stop 12/11/17 at 16:45; Status DC Fentanyl Citrate (Fentanyl 2ml Vial) 100 mcg STK-MED ONCE .ROUTE ; Start at 17:19; Stop 12/11/17 at 17:20; Status DC Midazolam HCl (Versed) 2 mg STK-MED ONCE .ROUTE ; Start 12/11/17 at 17:19; Stop 12/11/17 at 17:20; Status DC Propofol 20 ml @ As Directed STK-MED ONCE IV ; Start 12/11/17 at 17:25; Stop 12/11/17 at 17:26; Status DC Dexamethasone Sodium Phosphate (Decadron) 20 mg STK-MED ONCE .ROUTE ; Start at 17:25; Stop 12/11/17 at 17:26; Status DC Ketorolac Tromethamine (Toradol For Or Only) 30 mg STK-MED ONCE INJ ; Start at 17:25; Stop 12/11/17 at 17:26; Status DC Lidocaine HCl (Lidocaine Pf 2% Vial) 5 ml STK-MED ONCE .ROUTE ; Start 12/11/17 at 17:25; Stop 12/11/17 at 17:26; Status DC Ondansetron HCl (Zofran) 4 mg STK-MED ONCE .ROUTE ; Start 12/11/17 at 17:25; Stop 12/11/17 at 17:26; Status DC Fentanyl Citrate (Fentanyl 2ml Vial) 100 mcg STK-MED ONCE .ROUTE ; Start at 18:58; Stop 12/11/17 at 18:59; Status DC Hydromorphone HCl (Dilaudid) 2 mg STK-MED ONCE .ROUTE ; Start 12/11/17 at 18:59 ; Stop 12/11/17 at 19:00; Status DC Prochlorperazine Edisylate (Compazine) 10 mg STK-MED ONCE .ROUTE ; Start at 18:59; Stop 12/11/17 at 19:00; Status DC Influenza Virus Vaccine (Afluria Trivalent [id number] Syringe) 0.5 ml ONCE ONCE VAX IM Last administered on 12/12/17at 08:15; Start 12/12/17 at 09:00; Stop 12/12/17 at 09:01; Status DC Nicotine Polacrilex (Nicorette Gum) 1 each PRN Q1HR PRN BC SMOKING CESSATION Last administered on 12/15/17at 21:23; Start 12/11/17 at 22:15 Lorazepam (Ativan) 1 mg PRN Q6HRS PRN PO ANXIETY / AGITATION Last administered on 12/11/17at 22:49; Start 12/11/17 at 22:45 Linezolid (Zyvox) 600 mg BID PO Last administered on 12/17/17at 08:18; Start 12/12/17 at 10:00 Acetazolamide (Diamox) 250 mg BID PO Last administered on 12/17/17at 08:18; Start 12/12/17 at 12:30 Atorvastatin Calcium (Lipitor) 10 mg HS PO Last administered on 12/16/17at 20: 57; Start 12/12/17 at 21:00 Cyclobenzaprine HCl (Flexeril) 10 mg TID PO Last administered on 12/17/17at 08: 18; Start 12/12/17 at 14:00 Glipizide (Glucotrol) 5 mg DAILY PO ; Start 12/13/17 at 09:00; Stop 12/13/17 at 09:00; Status DC Levothyroxine Sodium (Synthroid) 100 mcg DAILY06 PO Last administered on at 07:05; Start 12/12/17 at 12:30 Amitriptyline HCl (Elavil) 150 mg QHS PO Last administered on 12/16/17at 20:57 ; Start 12/12/17 at 21:00 Hydroxyzine Pamoate (Vistaril) 25 mg TID@0700,1100,1600 PO Last administered on 12/17/17at 07:05; Start 12/12/17 at 16:00 Hydroxyzine Pamoate (Vistaril) 50 mg QHS PO Last administered on 12/16/17at 20: 57; Start 12/12/17 at 21:00 Meloxicam (Mobic) 15 mg DAILY PO Last administered on 12/17/17at 08:18; Start 12/12/17 at 12:30 Insulin Glargine (Lantus) 40 units BID SQ Last administered on 12/12/17at 14:28 ; Start 12/12/17 at 12:30; Stop 12/13/17 at 09:07; Status DC Nicotine (Nicoderm Cq 14mg) 1 patch PRN DAILY PRN TD SMOKING CESSATION; Start 12/12/17 at 12:00 Glipizide (Glucotrol) 5 mg DAILY PO Last administered on 12/12/17at 14:15; Start 12/12/17 at 13:00; Stop 12/13/17 at 09:07; Status DC Insulin Glargine (Lantus) 20 units QHS SQ Last administered on 12/14/17at 21:33 ; Start 12/13/17 at 21:00; Stop 12/15/17 at 09:28; Status DC Potassium Chloride (Klor-Con) 40 meq 1X ONCE PO Last administered on at 14:21; Start 12/13/17 at 14:00; Stop 12/13/17 at 14:01; Status DC Heparin Sodium (Porcine) (Heparin Sodium) 5,000 unit Q8HRS SQ Last administered on 12/13/17at 20:46; Start 12/13/17 at 14:00 Propofol 20 ml @ As Directed STK-MED ONCE IV ; Start 12/14/17 at 12:30; Stop 12/14/17 at 12:31; Status DC Ketamine HCl (Ketamine) 50 mg STK-MED ONCE .ROUTE ; Start 12/14/17 at 12:30; Stop 12/14/17 at 12:31; Status DC Midazolam HCl (Versed) 2 mg STK-MED ONCE .ROUTE ; Start 12/14/17 at 12:30; Stop 12/14/17 at 12:31; Status DC Propofol 50 ml @ As Directed STK-MED ONCE IV ; Start 12/14/17 at 13:03; Stop 12/14/17 at 13:04; Status DC Propofol 50 ml @ As Directed STK-MED ONCE IV ; Start 12/14/17 at 13:29; Stop 12/14/17 at 13:30; Status DC Ringer's Solution 1,000 ml @ 100 mls/hr Q10H IV Last administered on at 12:30; Start 12/14/17 at 12:01; Stop 12/15/17 at 02:49; Status DC Insulin Glargine (Lantus) 15 units QHS SQ Last administered on 12/16/17at 21:27 ; Start 12/15/17 at 21:00 Ondansetron HCl (Zofran) 4 mg PRN Q6HRS PRN IV NAUSEA/VOMITING; Start at 07:30; Stop 12/18/17 at 07:29 Morphine Sulfate (Morphine Sulfate) 1 mg PRN Q10MIN PRN IV SEVERE PAIN; Start 12/17/17 at 07:30; Stop 12/18/17 at 07:29 Ringer's Solution 1,000 ml @ 30 mls/hr Q24H IV ; Start 12/17/17 at 07:29; Stop 12/17/17 at 19:28 Lidocaine HCl (Xylocaine-Mpf 1% 2ml Vial) 2 ml 1X PRN PRN ID IV START; Start 12/17/17 at 07:30; Stop 12/18/17 at 07:29 Hydromorphone HCl (Dilaudid) 0.5 mg PRN Q10MIN PRN IV SEV PAIN, Second choice; Start 12/17/17 at 07:30; Stop 12/18/17 at 07:29 Prochlorperazine Edisylate (Compazine) 5 mg PACU PRN PRN IV NAUSEA, MRX1; Start 12/17/17 at 07:30; Stop 12/18/17 at 07:29 Active Scripts Active Reported Hydroxyzine Hcl 50 Mg Tablet 50 Mg PO QHS Hydroxyzine Hcl 25 Mg Tablet 25 Mg PO TID Acetazolamide 250 Mg Tablet 250 Mg PO BID Novolin N (Nph, Human Insulin Isophane) 100 Unit/1 Ml Vial 40 Unit SQ BID Potassium Chloride 10 Meq Tab.sr.24h 10 Meq PO TID Meloxicam 15 Mg Tablet 15 Mg PO DAILY Cyclobenzaprine Hcl 10 Mg Tablet 10 Mg PO TID Levothyroxine Sodium 100 Mcg Tablet 1 Tab PO DAILY Metformin Hcl 850 Mg Tablet 850 Mg PO BIDWMEALS Glipizide 5 Mg Tablet 5 Mg PO DAILY Atorvastatin Calcium 10 Mg Tablet 10 Mg PO HS Amitriptyline Hcl 150 Mg Tablet 1 Tab PO QHS Vitals/I & O Vital Sign - Last 24 Hours 12/16/17 12/16/17 12/16/17 12/16/17 11:00 15:00 16:50 17:50 Temp 98.0 98.1 98.0 98.1 Pulse 79 70 Resp 20 20 B/P (MAP) 120/75 (90) 121/74 (90) Pulse Ox 98 99 99 99 O2 Delivery Room Air Room Air Room Air Room Air O2 Flow Rate 8.0 8.0 12/16/17 12/16/17 12/17/17 12/17/17 19:00 23:00 03:00 07:00 Temp 98.0 98.2 97.8 97.8 98.0 98.2 97.8 97.8 Pulse 74 76 76 74 Resp 20 16 20 22 B/P (MAP) 131/81 (98) 109/52 (71) 113/63 (80) 108/61 (77) Pulse Ox 100 97 95 98 O2 Delivery Room Air Room Air Room Air 12/17/17 08:19 Resp 16 O2 Delivery Room Air Intake and Output 12/16/17 12/16/17 12/17/17 15:00 23:00 07:00 Intake Total 600 ml 1300 ml 290 ml Balance 600 ml 1300 ml 290 ml SYLVIA JUDD MD Dec 17, 2017 10:38
[2017-12-17 11:00] VITALS: BP 100/59
[2017-12-17] MEDS ORDERED: SEVOFLURANE 61 TO 120 MINUTES. IH ONE ×2 (12:00→13:27)
[2017-12-17] MEDS ORDERED: DEXAMETHASONE SOD PHOS 20 MG/5 ML VIAL. ONE (12:06)
[2017-12-17] MEDS ORDERED: ONDANSETRON PF 4 MG/2 ML VIAL. ONE (12:06)
[2017-12-17] MEDS ORDERED: MIDAZOLAM HCL/PF 2 MG/2 ML VIAL. ONE (12:06)
[2017-12-17] MEDS ORDERED: PROPOFOL 20 ML IV ONE (12:06)
[2017-12-17] MEDS ORDERED: fentaNYL PF VIAL 100 MCG/2 ML VIAL ONE (12:06)
[2017-12-17] MEDS ORDERED: DESFLURANE 61 TO 120 MINUTES IH ONE (13:27)
[2017-12-17] MEDS: PROCHLORPERAZINE 10 MG/2 ML VIAL. IV PRN ×2 (13:47→14:00)
[2017-12-17] MEDS: MORPHINE SULFATE 4 MG/ML VIAL. IV PRN (13:48)
[2017-12-17] MEDS: HYDROmorphone 2 MG/ML VIAL IV PRN ×3 (14:00→14:41)
[2017-12-17 15:00] VITALS: BP 116/69
[2017-12-17] MEDS: NICOTINE POLACRILEX 2MG GUM PACKAGE of 12. BC PRN (17:52)
[2017-12-17] MEDS: MORPHINE SULFATE 2 MG/ML VIAL. IV PRN (17:54)
[2017-12-17 19:00] VITALS: BP 114/62
[2017-12-17] MEDS: ATORVASTATIN CALCIUM 10 MG TABLET. PO SCH (21:03)
[2017-12-17] MEDS: AMITRIPTYLINE HCL 50 MG TABLET PO SCH (21:03)
[2017-12-17] MEDS: INSULIN GLARGINE 300 UNITS/3 ML INSULN.PEN. SQ SCH (21:07)
[2017-12-17 23:00] VITALS: BP 99/54
[2017-12-18] MEDS: PIPERACILLIN/TAZOBACTAM 3.375 GM in IV NORMAL SALINE 50ML 50 ML IV SCH ×2 (00:21→05:55)
[2017-12-18 03:00] VITALS: BP 101/56
[2017-12-18] MEDS: HEPARIN for SUB-Q USE 5,000 UNIT/ML VIAL. SQ SCH ×2 (05:51→14:00)
[2017-12-18 06:01] LABS: BASO % 0 % (0-3); EOS % 0 % (0-3); HEMATOCRIT 38.7 % (39.0-53.0); LYMPH # 0.9 x10^3/uL (1.0-4.8); LYMPH % 10 % (24-48); MEAN CORPUSCULAR HEMOGLOBIN 30 pg (25-35); MEAN CORPUSCULAR HGB CONC 34 g/dL (31-37); MEAN CORPUSCULAR VOLUME 90 fL (79-100); MONO # 0.3 x10^3/uL (0.0-1.1); MONO % 3 % (0-9); NEUT # 8.2 x10^3uL (1.8-7.7); NEUT % 87 % (31-73); PLATELET COUNT 256 x10^3/uL (140-400); RED BLOOD COUNT 4.32 x10^6/uL (4.30-5.70); WHITE BLOOD COUNT 9.4 x10^3/uL (4.0-11.0)
[2017-12-18 06:32] LABS: CALCIUM 8.2 mg/dL (8.5-10.1); CREATININE 1.1 mg/dL (0.7-1.3); GFR 70.6; POTASSIUM 3.9 mmol/L (3.5-5.1)
[2017-12-18] MEDS: hydrOXYzine PAMOATE 25 MG CAPSULE PO SCH ×2 (06:51→13:06)
[2017-12-18] MEDS: LEVOTHYROXINE 100 MCG TABLET PO SCH (06:51)
[2017-12-18 07:00] VITALS: BP 107/46
[2017-12-18] MEDS: INSULIN LISPRO 300 UNITS/3 ML INSULN.PEN. SQ SCH ×2 (08:00→12:00)
[2017-12-18] MEDS: LACTOBACILLUS RHAMNOSUS GG 1 CAPSULE. PO SCH (09:15)
[2017-12-18] MEDS: acetaZOLAMIDE 250 MG TABLET. PO SCH (09:15)
[2017-12-18] MEDS: MELOXICAM 7.5 MG TABLET PO SCH (09:15)
[2017-12-18] MEDS: LINEZOLID 600 MG TABLET PO SCH (09:15)
[2017-12-18] MEDS: CYCLOBENZAPRINE 10 MG TABLET. PO SCH ×2 (09:15→14:35)
--- NOTE | 2017-12-18 10:53 | PDOC ---
PROGRESS NOTES Chief Complaint Chief Complaint rt 4th finger tenosynovitis s/p i an d on 12/11 , 12/14 s/p sx 12/17/17 sepsis chronic hypokalemia dm2 hypothyroidism muscular dystrophy restless leg syndrome elevated lactate, corrected tobaccoism History of Present Illness History of Present Illness s/p third surgery this admission 12/17/17 Patient has no complaints-wants to go home I did not undress the dressing No fevers, still getting IV Zosyn Normal white count Plan: IV abx per ID Wound care/awaiting ortho rounds postop Discussed with RN at bedside Vitals Vitals Vital Signs Date Time Temp Pulse Resp B/P (MAP) Pulse Ox O2 Delivery O2 Flow Rate FiO2 12/18/17 07:00 97.6 75 18 107/46 (66) 93 Room Air 97.6 12/18/17 03:00 10.0 Physical Exam Physical Exam GENERAL: Lying down, alert, NAD HEENT: Oral cavity, pharynx is clear. LUNGS: Clear to auscultation. HEART: S1, S2. ABDOMEN: Obese, soft, nontender, nondistended with positive bowel sounds. EXTREMITIES: Right hand dressed. Fingers swollen. NVI with good cap refill. wiggles fingers, warm SKIN: Without signs of gross rash. NEUROLOGIC: Alert, responds appropriately General: Alert, Oriented X3, Cooperative Heart: Regular rate, Normal S1, Normal S2 Lungs: Clear Abdomen: Normal bowel sounds, Soft Extremities: No clubbing, No cyanosis Skin: No rashes Labs LABS Laboratory Tests Test 12/17/17 14:24 12/17/17 17:06 12/17/17 19:31 12/18/17 04:35 Glucose (Fingerstick) 91 mg/dL (70-99) 244 mg/dL (70-99) 205 mg/dL (70-99) White Blood Count 9.4 x10^3/uL (4.0-11.0) Red Blood Count 4.32 x10^6/uL (4.30-5.70) Hemoglobin 13.0 g/dL (13.0-17.5) Hematocrit 38.7 % (39.0-53.0) Mean Corpuscular Volume 90 fL (79-100) Mean Corpuscular Hemoglobin 30 pg (25-35) Mean Corpuscular Hemoglobin Concent 34 g/dL (31-37) Red Cell Distribution Width 14.0 % (11.5-14.5) Platelet Count 256 x10^3/uL (140-400) Neutrophils (%) (Auto) 87 % (31-73) Lymphocytes (%) (Auto) 10 % (24-48) Monocytes (%) (Auto) 3 % (0-9) Eosinophils (%) (Auto) 0 % (0-3) Basophils (%) (Auto) 0 % (0-3) Neutrophils # (Auto) 8.2 x10^3uL (1.8-7.7) Lymphocytes # (Auto) 0.9 x10^3/uL (1.0-4.8) Monocytes # (Auto) 0.3 x10^3/uL (0.0-1.1) Eosinophils # (Auto) 0.0 x10^3/uL (0.0-0.7) Basophils # (Auto) 0.0 x10^3/uL (0.0-0.2) Erythrocyte Sedimentation Rate 23 (0-15) Sodium Level 141 mmol/L (136-145) Potassium Level 3.9 mmol/L (3.5-5.1) Chloride Level 110 mmol/L (98-107) Carbon Dioxide Level 20 mmol/L (21-32) Anion Gap 11 (6-14) Blood Urea Nitrogen 21 mg/dL (8-26) Creatinine 1.1 mg/dL (0.7-1.3) Estimated GFR (Cockcroft-Gault) 70.6 Glucose Level 145 mg/dL (70-99) Calcium Level 8.2 mg/dL (8.5-10.1) Test 12/18/17 07:30 Glucose (Fingerstick) 135 mg/dL (70-99) Review of Systems Review of Systems A 14 point ROS was completed with the following noted as positive: Other systems reviewed and negative. \CONSTITUTIONAL: No fever or chills EYES: No recent changes SKIN: No rash or itching CARDIOVASCULAR: No chest pain, syncope, palpitations, or edema RESPIRATORY: No SOB or cough GASTROINTESTINAL: No nausea, vomiting or abdominal pain NEUROLOGICAL: No headaches or weakness ENDOCRINE: No cold or heat intolerance GENITOURINARY: No urgency or frequency of urination MUSCULOSKELETAL: No back pain or joint pain LYMPHATICS: No enlarged lymph nodes PSYCHIATRIC: No anxiety or depression Assessment and Plan Assessmemt and Plan Problems Medical Problems: (1) Cellulitis of hand Status: Acute Comment Review of Relevant I have reviewed the following items chema (where applicable) has been applied. Labs Laboratory Tests Test 12/16/17 11:22 12/16/17 16:51 12/16/17 21:21 12/17/17 03:10 Glucose (Fingerstick) 117 mg/dL (70-99) 72 mg/dL (70-99) 147 mg/dL (70-99) White Blood Count 6.0 x10^3/uL (4.0-11.0) Red Blood Count 4.33 x10^6/uL (4.30-5.70) Hemoglobin 13.3 g/dL (13.0-17.5) Hematocrit 38.7 % (39.0-53.0) Mean Corpuscular Volume 89 fL (79-100) Mean Corpuscular Hemoglobin 31 pg (25-35) Mean Corpuscular Hemoglobin Concent 34 g/dL (31-37) Red Cell Distribution Width 14.2 % (11.5-14.5) Platelet Count 213 x10^3/uL (140-400) Neutrophils (%) (Auto) 59 % (31-73) Lymphocytes (%) (Auto) 30 % (24-48) Monocytes (%) (Auto) 8 % (0-9) Eosinophils (%) (Auto) 3 % (0-3) Basophils (%) (Auto) 1 % (0-3) Neutrophils # (Auto) 3.5 x10^3uL (1.8-7.7) Lymphocytes # (Auto) 1.8 x10^3/uL (1.0-4.8) Monocytes # (Auto) 0.5 x10^3/uL (0.0-1.1) Eosinophils # (Auto) 0.2 x10^3/uL (0.0-0.7) Basophils # (Auto) 0.0 x10^3/uL (0.0-0.2) Sodium Level 141 mmol/L (136-145) Potassium Level 3.9 mmol/L (3.5-5.1) Chloride Level 110 mmol/L (98-107) Carbon Dioxide Level 20 mmol/L (21-32) Anion Gap 11 (6-14) Blood Urea Nitrogen 17 mg/dL (8-26) Creatinine 1.0 mg/dL (0.7-1.3) Estimated GFR (Cockcroft-Gault) 78.8 Glucose Level 140 mg/dL (70-99) Calcium Level 8.3 mg/dL (8.5-10.1) Test 12/17/17 07:46 12/17/17 10:49 12/17/17 14:24 12/17/17 17:06 Glucose (Fingerstick) 92 mg/dL (70-99) 99 mg/dL (70-99) 91 mg/dL (70-99) 244 mg/dL (70-99) Test 12/17/17 19:31 12/18/17 04:35 12/18/17 07:30 Glucose (Fingerstick) 205 mg/dL (70-99) 135 mg/dL (70-99) White Blood Count 9.4 x10^3/uL (4.0-11.0) Red Blood Count 4.32 x10^6/uL (4.30-5.70) Hemoglobin 13.0 g/dL (13.0-17.5) Hematocrit 38.7 % (39.0-53.0) Mean Corpuscular Volume 90 fL (79-100) Mean Corpuscular Hemoglobin 30 pg (25-35) Mean Corpuscular Hemoglobin Concent 34 g/dL (31-37) Red Cell Distribution Width 14.0 % (11.5-14.5) Platelet Count 256 x10^3/uL (140-400) Neutrophils (%) (Auto) 87 % (31-73) Lymphocytes (%) (Auto) 10 % (24-48) Monocytes (%) (Auto) 3 % (0-9) Eosinophils (%) (Auto) 0 % (0-3) Basophils (%) (Auto) 0 % (0-3) Neutrophils # (Auto) 8.2 x10^3uL (1.8-7.7) Lymphocytes # (Auto) 0.9 x10^3/uL (1.0-4.8) Monocytes # (Auto) 0.3 x10^3/uL (0.0-1.1) Eosinophils # (Auto) 0.0 x10^3/uL (0.0-0.7) Basophils # (Auto) 0.0 x10^3/uL (0.0-0.2) Erythrocyte Sedimentation Rate 23 (0-15) Sodium Level 141 mmol/L (136-145) Potassium Level 3.9 mmol/L (3.5-5.1) Chloride Level 110 mmol/L (98-107) Carbon Dioxide Level 20 mmol/L (21-32) Anion Gap 11 (6-14) Blood Urea Nitrogen 21 mg/dL (8-26) Creatinine 1.1 mg/dL (0.7-1.3) Estimated GFR (Cockcroft-Gault) 70.6 Glucose Level 145 mg/dL (70-99) Calcium Level 8.2 mg/dL (8.5-10.1) Laboratory Tests Test 12/17/17 14:24 12/17/17 17:06 12/17/17 19:31 12/18/17 04:35 Glucose (Fingerstick) 91 mg/dL (70-99) 244 mg/dL (70-99) 205 mg/dL (70-99) White Blood Count 9.4 x10^3/uL (4.0-11.0) Red Blood Count 4.32 x10^6/uL (4.30-5.70) Hemoglobin 13.0 g/dL (13.0-17.5) Hematocrit 38.7 % (39.0-53.0) Mean Corpuscular Volume 90 fL (79-100) Mean Corpuscular Hemoglobin 30 pg (25-35) Mean Corpuscular Hemoglobin Concent 34 g/dL (31-37) Red Cell Distribution Width 14.0 % (11.5-14.5) Platelet Count 256 x10^3/uL (140-400) Neutrophils (%) (Auto) 87 % (31-73) Lymphocytes (%) (Auto) 10 % (24-48) Monocytes (%) (Auto) 3 % (0-9) Eosinophils (%) (Auto) 0 % (0-3) Basophils (%) (Auto) 0 % (0-3) Neutrophils # (Auto) 8.2 x10^3uL (1.8-7.7) Lymphocytes # (Auto) 0.9 x10^3/uL (1.0-4.8) Monocytes # (Auto) 0.3 x10^3/uL (0.0-1.1) Eosinophils # (Auto) 0.0 x10^3/uL (0.0-0.7) Basophils # (Auto) 0.0 x10^3/uL (0.0-0.2) Erythrocyte Sedimentation Rate 23 (0-15) Sodium Level 141 mmol/L (136-145) Potassium Level 3.9 mmol/L (3.5-5.1) Chloride Level 110 mmol/L (98-107) Carbon Dioxide Level 20 mmol/L (21-32) Anion Gap 11 (6-14) Blood Urea Nitrogen 21 mg/dL (8-26) Creatinine 1.1 mg/dL (0.7-1.3) Estimated GFR (Cockcroft-Gault) 70.6 Glucose Level 145 mg/dL (70-99) Calcium Level 8.2 mg/dL (8.5-10.1) Test 12/18/17 07:30 Glucose (Fingerstick) 135 mg/dL (70-99) Microbiology 12/11/17 Blood Culture - Final, Complete NO GROWTH AFTER 5 DAYS 12/11/17 Anaerobic/Aerobic Culture - Final, Complete 12/11/17 Anaerobic Culture Result 1 (HELIO) - Final, Complete 12/11/17 Aerobic Culture - Final, Complete 12/11/17 Aerobic Culture Result 1 (HELIO) - Final, Complete 12/11/17 Gram Stain - Final, Complete 12/11/17 Gram Stain Result 1 (HELIO) - Final, Complete 12/11/17 Gram Stain Result 2 (HELIO) - Final, Complete Medications Current Medications Vancomycin HCl (Vanco Per Pharmacy) 1 each PRN DAILY PRN MC SEE COMMENTS; Start 12/11/17 at 11:45; Status UNV Fentanyl Citrate (Fentanyl 2ml Vial) 50 mcg 1X ONCE IV Last administered on at 12:13; Start 12/11/17 at 12:15; Stop 12/11/17 at 12:34; Status DC Vancomycin HCl 2 gm/Sodium Chloride 500 ml @ 250 mls/hr 1X ONCE IV Last administered on 12/11/17at 13:11; Start 12/11/17 at 12:45; Stop 12/11/17 at 14 :44; Status DC Sodium Chloride 1,000 ml @ 1,000 mls/hr 1X ONCE IV Last administered on 12/11at 12:59; Start 12/11/17 at 12:45; Stop 12/11/17 at 13:44; Status DC Morphine Sulfate (Morphine Sulfate) 4 mg 1X ONCE IV Last administered on 12/11at 12:59; Start 12/11/17 at 13:00; Stop 12/11/17 at 13:01; Status DC Ketamine HCl (Ketamine) 20 mg 1X ONCE IV Last administered on 12/11/17at 13:58 ; Start 12/11/17 at 13:45; Stop 12/11/17 at 13:46; Status DC Ondansetron HCl (Zofran) 4 mg PRN Q8HRS PRN IV NAUSEA/VOMITING; Start at 14:00; Stop 12/12/17 at 13:41; Status DC Morphine Sulfate (Morphine Sulfate) 4 mg PRN Q2HR PRN IV PAIN Last administered on 12/12/17at 10:27; Start 12/11/17 at 14:00; Stop 12/12/17 at 13 :42; Status DC Sodium Chloride 1,000 ml @ 80 mls/hr [id number] IV ; Start 12/11/17 at 14:30; Stop 12/11/17 at 20:30; Status DC Ondansetron HCl (Zofran) 4 mg PRN Q6HRS PRN IV NAUSEA/VOMITING; Start at 14:15; Stop 12/11/17 at 20:31; Status DC Fentanyl Citrate (Fentanyl 2ml Vial) 25 mcg PRN Q5MIN PRN IV MILD PAIN; Start 12/11/17 at 14:15; Stop 12/11/17 at 20:31; Status DC Fentanyl Citrate (Fentanyl 2ml Vial) 50 mcg PRN Q5MIN PRN IV MODERATE TO SEVERE PAIN Last administered on 12/11/17at 19:26; Start 12/11/17 at 14:15; Stop 12/11/17 at 20:31; Status DC Morphine Sulfate (Morphine Sulfate) 1 mg PRN Q10MIN PRN IV SEVERE PAIN; Start 12/11/17 at 14:15; Stop 12/11/17 at 20:31; Status DC Ringer's Solution 1,000 ml @ 30 mls/hr Q24H IV Last administered on at 16:32; Start 12/11/17 at 14:06; Stop 12/11/17 at 20:30; Status DC Lidocaine HCl (Xylocaine-Mpf 1% 2ml Vial) 2 ml 1X PRN PRN ID IV START; Start 12/11/17 at 14:15; Stop 12/11/17 at 20:31; Status DC Hydromorphone HCl (Dilaudid) 0.5 mg PRN Q10MIN PRN IV SEV PAIN, Second choice Last administered on 12/11/17at 20:00; Start 12/11/17 at 14:15; Stop 12/11/17 at 20:31; Status DC Prochlorperazine Edisylate (Compazine) 5 mg PACU PRN PRN IV NAUSEA, MRX1; Start 12/11/17 at 14:15; Stop 12/11/17 at 20:31; Status DC Acetaminophen (Tylenol) 650 mg PRN Q6HRS PRN PO FEVER; Start 12/11/17 at 14:15 Ondansetron HCl (Zofran) 4 mg PRN Q6HRS PRN IV NAUSEA/VOMITING Last administered on 12/11/17at 14:55; Start 12/11/17 at 14:15 Morphine Sulfate (Morphine Sulfate) 2 mg PRN Q2HR PRN IV MODERATE TO SEVERE PAIN; Start 12/11/17 at 14:15; Status UNV Tramadol HCl (Ultram) 50 mg PRN Q6HRS PRN PO MILD TO MODERATE PAIN Last administered on 12/12/17at 08:13; Start 12/11/17 at 14:15; Stop 12/12/17 at 09 :19; Status DC Docusate Sodium (Colace) 100 mg PRN DAILY PRN PO CONSTIPATION; Start 12/11/17 at 14:15 Labetalol HCl (Normodyne Iv Push) 20 mg PRN Q2HR PRN IVP HYPERTENSION, SEE COMMENTS; Start 12/11/17 at 14:15 Morphine Sulfate (Morphine Sulfate) 2 mg PRN Q2HR PRN IV MILD-MODERATE PAIN Last administered on 12/17/17at 17:54; Start 12/11/17 at 14:15 Morphine Sulfate (Morphine Sulfate) 4 mg PRN Q2HR PRN IV SEVERE PAIN Last administered on 12/17/17at 13:48; Start 12/11/17 at 14:15 Oxycodone/ Acetaminophen (Percocet 5/325) 1 tab PRN Q4HRS PRN PO PAIN Last administered on 12/17/17at 15:09; Start 12/11/17 at 14:15 Vancomycin HCl (Vanco Per Pharmacy) 1 each PRN DAILY PRN MC SEE COMMENTS Last administered on 12/11/17at 16:01; Start 12/11/17 at 14:15; Stop 12/12/17 at 09 :19; Status DC Vancomycin HCl 2 gm/Sodium Chloride 500 ml @ 250 mls/hr Q12H IV ; Start at 14:15; Status UNV Piperacillin Sod/ Tazobactam Sod 4.5 gm/Sodium Chloride 100 ml @ 200 mls/hr Q6HRS IV ; Start 12/11/17 at 18:00; Status UNV Piperacillin Sod/ Tazobactam Sod (Zosyn Per Pharmacy) 1 each PRN DAILY PRN MC SEE COMMENTS; Start 12/11/17 at 14:15 Insulin Human Lispro (HumaLOG) 0-9 UNITS TIDWMEALS SQ ; Start 12/11/17 at 17:00 Dextrose (Dextrose 50%-Water Syringe) 12.5 gm PRN Q15MIN PRN IV SEE COMMENTS; Start 12/11/17 at 14:15 Insulin Glargine (Lantus) 20 units QHS SQ Last administered on 12/11/17at 22:25 ; Start 12/11/17 at 21:00; Stop 12/12/17 at 11:55; Status DC Potassium Chloride/Sodium Chloride 1,000 ml @ 75 mls/hr [id number] IV Last administered on 12/13/17at 03:45; Start 12/11/17 at 16:00; Stop 12/13/17 at 13 :37; Status DC Piperacillin Sod/ Tazobactam Sod 3.375 gm/Sodium Chloride 50 ml @ 100 mls/hr 1X ONCE IV Last administered on 12/11/17at 15:07; Start 12/11/17 at 14:45; Stop 12/11/17 at 15:14; Status DC Piperacillin Sod/ Tazobactam Sod 3.375 gm/Sodium Chloride 50 ml @ 100 mls/hr Q6HRS IV Last administered on 12/18/17at 05:55; Start 12/11/17 at 19:00 Vancomycin HCl 1.5 gm/Sodium Chloride 500 ml @ 250 mls/hr Q8H IV Last administered on 12/12/17at 04:32; Start 12/11/17 at 21:00; Stop 12/12/17 at 09 :19; Status DC Vancomycin HCl (Vancomycin Trough Level) 1 each 1X ONCE MC ; Start 12/12/17 at 12:30; Stop 12/12/17 at 12:30; Status DC Lactobacillus Rhamnosus (Culturelle) 1 cap BID PO Last administered on at 09:15; Start 12/11/17 at 21:00 Ondansetron HCl (Zofran) 4 mg PRN Q6HRS PRN IV NAUSEA/VOMITING; Start at 16:30; Stop 12/11/17 at 20:31; Status DC Fentanyl Citrate (Fentanyl 2ml Vial) 25 mcg PRN Q5MIN PRN IV MILD PAIN; Start 12/11/17 at 16:30; Stop 12/11/17 at 20:31; Status DC Fentanyl Citrate (Fentanyl 2ml Vial) 50 mcg PRN Q5MIN PRN IV MODERATE TO SEVERE PAIN; Start 12/11/17 at 16:30; Stop 12/11/17 at 20:31; Status DC Morphine Sulfate (Morphine Sulfate) 1 mg PRN Q10MIN PRN IV SEVERE PAIN; Start 12/11/17 at 16:30; Stop 12/11/17 at 20:31; Status DC Ringer's Solution 1,000 ml @ 30 mls/hr Q24H IV ; Start 12/11/17 at 16:16; Stop 12/11/17 at 20:30; Status DC Lidocaine HCl (Xylocaine-Mpf 1% 2ml Vial) 2 ml 1X PRN PRN ID IV START; Start 12/11/17 at 16:30; Stop 12/11/17 at 20:31; Status DC Hydromorphone HCl (Dilaudid) 0.5 mg PRN Q10MIN PRN IV SEV PAIN, Second choice; Start 12/11/17 at 16:30; Stop 12/11/17 at 20:31; Status DC Prochlorperazine Edisylate (Compazine) 5 mg PACU PRN PRN IV NAUSEA, MRX1; Start 12/11/17 at 16:30; Stop 12/11/17 at 20:31; Status DC Fentanyl Citrate (Fentanyl 2ml Vial) 100 mcg STK-MED ONCE .ROUTE ; Start at 16:44; Stop 12/11/17 at 16:45; Status DC Fentanyl Citrate (Fentanyl 2ml Vial) 100 mcg STK-MED ONCE .ROUTE ; Start at 17:19; Stop 12/11/17 at 17:20; Status DC Midazolam HCl (Versed) 2 mg STK-MED ONCE .ROUTE ; Start 12/11/17 at 17:19; Stop 12/11/17 at 17:20; Status DC Propofol 20 ml @ As Directed STK-MED ONCE IV ; Start 12/11/17 at 17:25; Stop 12/11/17 at 17:26; Status DC Dexamethasone Sodium Phosphate (Decadron) 20 mg STK-MED ONCE .ROUTE ; Start at 17:25; Stop 12/11/17 at 17:26; Status DC Ketorolac Tromethamine (Toradol For Or Only) 30 mg STK-MED ONCE INJ ; Start at 17:25; Stop 12/11/17 at 17:26; Status DC Lidocaine HCl (Lidocaine Pf 2% Vial) 5 ml STK-MED ONCE .ROUTE ; Start 12/11/17 at 17:25; Stop 12/11/17 at 17:26; Status DC Ondansetron HCl (Zofran) 4 mg STK-MED ONCE .ROUTE ; Start 12/11/17 at 17:25; Stop 12/11/17 at 17:26; Status DC Fentanyl Citrate (Fentanyl 2ml Vial) 100 mcg STK-MED ONCE .ROUTE ; Start at 18:58; Stop 12/11/17 at 18:59; Status DC Hydromorphone HCl (Dilaudid) 2 mg STK-MED ONCE .ROUTE ; Start 12/11/17 at 18:59 ; Stop 12/11/17 at 19:00; Status DC Prochlorperazine Edisylate (Compazine) 10 mg STK-MED ONCE .ROUTE ; Start at 18:59; Stop 12/11/17 at 19:00; Status DC Influenza Virus Vaccine (Afluria Trivalent [id number] Syringe) 0.5 ml ONCE ONCE VAX IM Last administered on 12/12/17 08:15; Start 12/12/17 at 09:00; Stop 12/12/17 at 09:01; Status DC Nicotine Polacrilex (Nicorette Gum) 1 each PRN Q1HR PRN BC SMOKING CESSATION Last administered on 12/17/17at 17:52; Start 12/11/17 at 22:15 Lorazepam (Ativan) 1 mg PRN Q6HRS PRN PO ANXIETY / AGITATION Last administered on 12/11/17at 22:49; Start 12/11/17 at 22:45 Linezolid (Zyvox) 600 mg BID PO Last administered on 12/18/17at 09:15; Start 12/12/17 at 10:00 Acetazolamide (Diamox) 250 mg BID PO Last administered on 12/18/17at 09:15; Start 12/12/17 at 12:30 Atorvastatin Calcium (Lipitor) 10 mg HS PO Last administered on 12/17/17at 21: 03; Start 12/12/17 at 21:00 Cyclobenzaprine HCl (Flexeril) 10 mg TID PO Last administered on 12/18/17 09: 15; Start 12/12/17 at 14:00 Glipizide (Glucotrol) 5 mg DAILY PO ; Start 12/13/17 at 09:00; Stop 12/13/17 at 09:00; Status DC Levothyroxine Sodium (Synthroid) 100 mcg DAILY06 PO Last administered on at 06:51; Start 12/12/17 at 12:30 Amitriptyline HCl (Elavil) 150 mg QHS PO Last administered on 12/17/17 21:03 ; Start 12/12/17 at 21:00 Hydroxyzine Pamoate (Vistaril) 25 mg TID@0700,1100,1600 PO Last administered on 12/18/17at 06:51; Start 12/12/17 at 16:00 Hydroxyzine Pamoate (Vistaril) 50 mg QHS PO Last administered on 12/17/17at 21: 02; Start 12/12/17 at 21:00 Meloxicam (Mobic) 15 mg DAILY PO Last administered on 12/18/17at 09:15; Start 12/12/17 at 12:30 Insulin Glargine (Lantus) 40 units BID SQ Last administered on 12/12/17at 14:28 ; Start 12/12/17 at 12:30; Stop 12/13/17 at 09:07; Status DC Nicotine (Nicoderm Cq 14mg) 1 patch PRN DAILY PRN TD SMOKING CESSATION; Start 12/12/17 at 12:00 Glipizide (Glucotrol) 5 mg DAILY PO Last administered on 12/12/17at 14:15; Start 12/12/17 at 13:00; Stop 12/13/17 at 09:07; Status DC Insulin Glargine (Lantus) 20 units QHS SQ Last administered on 12/14/17at 21:33 ; Start 12/13/17 at 21:00; Stop 12/15/17 at 09:28; Status DC Potassium Chloride (Klor-Con) 40 meq 1X ONCE PO Last administered on at 14:21; Start 12/13/17 at 14:00; Stop 12/13/17 at 14:01; Status DC Heparin Sodium (Porcine) (Heparin Sodium) 5,000 unit Q8HRS SQ Last administered on 12/13/17at 20:46; Start 12/13/17 at 14:00 Propofol 20 ml @ As Directed STK-MED ONCE IV ; Start 12/14/17 at 12:30; Stop 12/14/17 at 12:31; Status DC Ketamine HCl (Ketamine) 50 mg STK-MED ONCE .ROUTE ; Start 12/14/17 at 12:30; Stop 12/14/17 at 12:31; Status DC Midazolam HCl (Versed) 2 mg STK-MED ONCE .ROUTE ; Start 12/14/17 at 12:30; Stop 12/14/17 at 12:31; Status DC Propofol 50 ml @ As Directed STK-MED ONCE IV ; Start 12/14/17 at 13:03; Stop 12/14/17 at 13:04; Status DC Propofol 50 ml @ As Directed STK-MED ONCE IV ; Start 12/14/17 at 13:29; Stop 12/14/17 at 13:30; Status DC Ringer's Solution 1,000 ml @ 100 mls/hr Q10H IV Last administered on at 12:30; Start 12/14/17 at 12:01; Stop 12/15/17 at 02:49; Status DC Insulin Glargine (Lantus) 15 units QHS SQ Last administered on 12/17/17at 21:07 ; Start 12/15/17 at 21:00 Ondansetron HCl (Zofran) 4 mg PRN Q6HRS PRN IV NAUSEA/VOMITING; Start at 07:30; Stop 12/18/17 at 07:29; Status DC Morphine Sulfate (Morphine Sulfate) 1 mg PRN Q10MIN PRN IV SEVERE PAIN; Start 12/17/17 at 07:30; Stop 12/18/17 at 07:29; Status DC Ringer's Solution 1,000 ml @ 30 mls/hr Q24H IV ; Start 12/17/17 at 07:29; Stop 12/17/17 at 19:28; Status DC Lidocaine HCl (Xylocaine-Mpf 1% 2ml Vial) 2 ml 1X PRN PRN ID IV START; Start 12/17/17 at 07:30; Stop 12/18/17 at 07:29; Status DC Hydromorphone HCl (Dilaudid) 0.5 mg PRN Q10MIN PRN IV SEV PAIN, Second choice Last administered on 12/17/17at 14:41; Start 12/17/17 at 07:30; Stop 12/18/17 at 07:29; Status DC Prochlorperazine Edisylate (Compazine) 5 mg PACU PRN PRN IV NAUSEA, MRX1 Last administered on 12/17/17at 14:00; Start 12/17/17 at 07:30; Stop 12/18/17 at 07 :29; Status DC Sevoflurane (Ultane) 60 ml STK-MED ONCE IH ; Start 12/17/17 at 12:00; Stop at 12:02; Status DC Fentanyl Citrate (Fentanyl 2ml Vial) 100 mcg STK-MED ONCE .ROUTE ; Start at 12:06; Stop 12/17/17 at 12:07; Status DC Midazolam HCl (Versed) 2 mg STK-MED ONCE .ROUTE ; Start 12/17/17 at 12:06; Stop 12/17/17 at 12:07; Status DC Propofol 20 ml @ As Directed STK-MED ONCE IV ; Start 12/17/17 at 12:06; Stop 12/17/17 at 12:07; Status DC Dexamethasone Sodium Phosphate (Decadron) 20 mg STK-MED ONCE .ROUTE ; Start at 12:06; Stop 12/17/17 at 12:07; Status DC Ondansetron HCl (Zofran) 4 mg STK-MED ONCE .ROUTE ; Start 12/17/17 at 12:06; Stop 12/17/17 at 12:07; Status DC Desflurane (Suprane) 60 ml STK-MED ONCE IH ; Start 12/17/17 at 13:27; Stop at 13:28; Status DC Sevoflurane (Ultane) 60 ml STK-MED ONCE IH ; Start 12/17/17 at 13:27; Stop at 13:28; Status DC Active Scripts Active Reported Hydroxyzine Hcl 50 Mg Tablet 50 Mg PO QHS Hydroxyzine Hcl 25 Mg Tablet 25 Mg PO TID Acetazolamide 250 Mg Tablet 250 Mg PO BID Novolin N (Nph, Human Insulin Isophane) 100 Unit/1 Ml Vial 40 Unit SQ BID Potassium Chloride 10 Meq Tab.sr.24h 10 Meq PO TID Meloxicam 15 Mg Tablet 15 Mg PO DAILY Cyclobenzaprine Hcl 10 Mg Tablet 10 Mg PO TID Levothyroxine Sodium 100 Mcg Tablet 1 Tab PO DAILY Metformin Hcl 850 Mg Tablet 850 Mg PO BIDWMEALS Glipizide 5 Mg Tablet 5 Mg PO DAILY Atorvastatin Calcium 10 Mg Tablet 10 Mg PO HS Amitriptyline Hcl 150 Mg Tablet 1 Tab PO QHS Vitals/I & O Vital Sign - Last 24 Hours 12/17/17 12/17/17 12/17/17 12/17/17 11:00 11:27 13:22 13:37 Temp 97.9 97.8 97.9 97.8 Pulse 69 68 70 73 Resp 20 17 20 20 B/P (MAP) 100/59 (73) 115/63 125/54 113/60 Pulse Ox 94 98 98 97 O2 Delivery Room Air Room Air Simple Mask Room Air O2 Flow Rate 12/17/17 12/17/17 12/17/17 12/17/17 13:48 13:52 14:00 14:07 Pulse 81 72 Resp 20 20 20 20 B/P (MAP) 110/62 113/64 Pulse Ox 97 97 99 99 O2 Delivery Room Air Room Air Room Air Room Air 12/17/17 12/17/17 12/17/17 12/17/17 14:18 14:21 14:29 14:41 Pulse 69 Resp 18 22 20 20 B/P (MAP) 120/68 Pulse Ox 99 99 96 99 O2 Delivery Room Air Room Air Room Air Room Air O2 Flow Rate 10.0 12/17/17 12/17/17 12/17/17 12/17/17 14:51 15:00 15:09 15:11 Temp 97.6 97.6 Pulse 75 Resp 20 18 16 B/P (MAP) 116/69 (85) Pulse Ox 99 98 O2 Delivery Room Air Room Air Room Air O2 Flow Rate 10.0 12/17/17 12/17/17 12/17/17 12/17/17 16:09 17:54 18:24 19:00 Temp 97.7 97.7 Pulse 81 Resp 16 18 18 18 B/P (MAP) 114/62 (79) Pulse Ox 94 O2 Delivery Room Air Room Air Room Air Room Air 12/17/17 12/18/17 12/18/17 23:00 03:00 07:00 Temp 97.6 97.9 97.6 97.6 97.9 97.6 Pulse 79 99 75 Resp 18 20 18 B/P (MAP) 99/54 (69) 101/56 (71) 107/46 (66) Pulse Ox 98 100 93 O2 Delivery Room Air Room Air Room Air O2 Flow Rate 10.0 Intake and Output 12/17/17 12/17/17 12/18/17 15:00 23:00 07:00 Intake Total 350 ml 860 ml Output Total 0 ml Balance 350 ml 860 ml 0 ml SYLVIA JUDD MD Dec 18, 2017 10:53
[2017-12-18 11:00] VITALS: BP 112/63
--- NOTE | 2017-12-18 11:19 | PDOC ---
Infectious Disease Note Subjective Subjective pt is feeling good ROS ROS no n/v/d/sob Vital Sign Vital Signs Vital Signs Date Time Temp Pulse Resp B/P (MAP) Pulse Ox O2 Delivery O2 Flow Rate FiO2 12/18/17 08:00 Room Air 12/18/17 07:00 97.6 75 18 107/46 (66) 93 97.6 12/18/17 03:00 10.0 Physical Exam PHYSICAL EXAM GENERAL: Lying down, alert, NAD HEENT: Oral cavity, pharynx is clear. LUNGS: Clear to auscultation. HEART: S1, S2. ABDOMEN: Obese, soft, nontender, nondistended with positive bowel sounds. EXTREMITIES: Right hand dressed. Fingers swollen. NVI with good cap refill. wiggles fingers, warm SKIN: Without signs of gross rash. NEUROLOGIC: Alert, responds appropriately Labs Lab Laboratory Tests Test 12/17/17 14:24 12/17/17 17:06 12/17/17 19:31 12/18/17 04:35 Glucose (Fingerstick) 91 mg/dL (70-99) 244 mg/dL (70-99) 205 mg/dL (70-99) White Blood Count 9.4 x10^3/uL (4.0-11.0) Red Blood Count 4.32 x10^6/uL (4.30-5.70) Hemoglobin 13.0 g/dL (13.0-17.5) Hematocrit 38.7 % (39.0-53.0) Mean Corpuscular Volume 90 fL (79-100) Mean Corpuscular Hemoglobin 30 pg (25-35) Mean Corpuscular Hemoglobin Concent 34 g/dL (31-37) Red Cell Distribution Width 14.0 % (11.5-14.5) Platelet Count 256 x10^3/uL (140-400) Neutrophils (%) (Auto) 87 % (31-73) Lymphocytes (%) (Auto) 10 % (24-48) Monocytes (%) (Auto) 3 % (0-9) Eosinophils (%) (Auto) 0 % (0-3) Basophils (%) (Auto) 0 % (0-3) Neutrophils # (Auto) 8.2 x10^3uL (1.8-7.7) Lymphocytes # (Auto) 0.9 x10^3/uL (1.0-4.8) Monocytes # (Auto) 0.3 x10^3/uL (0.0-1.1) Eosinophils # (Auto) 0.0 x10^3/uL (0.0-0.7) Basophils # (Auto) 0.0 x10^3/uL (0.0-0.2) Erythrocyte Sedimentation Rate 23 (0-15) Sodium Level 141 mmol/L (136-145) Potassium Level 3.9 mmol/L (3.5-5.1) Chloride Level 110 mmol/L (98-107) Carbon Dioxide Level 20 mmol/L (21-32) Anion Gap 11 (6-14) Blood Urea Nitrogen 21 mg/dL (8-26) Creatinine 1.1 mg/dL (0.7-1.3) Estimated GFR (Cockcroft-Gault) 70.6 Glucose Level 145 mg/dL (70-99) Calcium Level 8.2 mg/dL (8.5-10.1) Test 12/18/17 07:30 Glucose (Fingerstick) 135 mg/dL (70-99) Micro Microbiology 12/11/17 Blood Culture - Preliminary, Resulted NO GROWTH AFTER 3 DAYS 12/11/17 Anaerobic/Aerobic Culture, Resulted Pending 12/11/17 Anaerobic Culture Result 1 (HELIO), Resulted Pending 12/11/17 Aerobic Culture - Preliminary, Resulted 12/11/17 Aerobic Culture Result 1 (HELIO) - Preliminary, Resulted 12/11/17 Gram Stain - Final, Resulted 12/11/17 Gram Stain Result 1 (HELIO) - Final, Resulted 12/11/17 Gram Stain Result 2 (HELIO) - Final, Resulted Objective Assessment Right ringer finger tenosynovitis - s/p I and D 12/11 and 12/17 Leukocytosis better but did receive Dexamethasone 12/11 H/o MRSA Muscular dystrophy Plan Plan of Care Cont Zosyn and Zyvox. ,,, change to cipro and doxy, cultures are neg Cultures NGTD Supportive care d/w dr Fortunato DARLING,DARIEL Laird MD Dec 18, 2017 11:19
[2017-12-18] MEDS ORDERED: OXYC1TAB7 PO (11:45)
[2017-12-18] MEDS ORDERED: CIPR250T30 PO (11:45)
[2017-12-18] MEDS ORDERED: DOXY100T PO (11:45)
--- NOTE | 2017-12-18 11:46 | PDOC3 ---
Discharge Summary Visit Information Date of Admission: Dec 11, 2017 Date of Discharge: Dec 18, 2017 Admitting Diagnosis Comment: rt 4th finger tenosynovitis s/p i an d on 12/11 , 12/14 s/p sx 12/17/17 sepsis chronic hypokalemia dm2 hypothyroidism muscular dystrophy restless leg syndrome elevated lactate, corrected tobaccoism Final Diagnosis Problems Medical Problems: (1) Cellulitis of hand Status: Acute Brief Hospital Course Allergies Allergies Coded Allergies Type Severity Reaction Last Updated Verified I S O L A T I O N *CONTACT* Allergy Unknown 12/17/17 Yes No Known Medication Allergies Allergy Unknown 12/17/17 Yes Vital Signs Vital Signs Date Time Temp Pulse Resp B/P (MAP) Pulse Ox O2 Delivery O2 Flow Rate FiO2 12/18/17 08:00 Room Air 12/18/17 07:00 97.6 75 18 107/46 (66) 93 97.6 12/18/17 03:00 10.0 Lab Results Laboratory Tests Test 12/16/17 16:51 12/16/17 21:21 12/17/17 03:10 12/17/17 07:46 Glucose (Fingerstick) 72 mg/dL (70-99) 147 mg/dL (70-99) 92 mg/dL (70-99) White Blood Count 6.0 x10^3/uL (4.0-11.0) Red Blood Count 4.33 x10^6/uL (4.30-5.70) Hemoglobin 13.3 g/dL (13.0-17.5) Hematocrit 38.7 % (39.0-53.0) Mean Corpuscular Volume 89 fL (79-100) Mean Corpuscular Hemoglobin 31 pg (25-35) Mean Corpuscular Hemoglobin Concent 34 g/dL (31-37) Red Cell Distribution Width 14.2 % (11.5-14.5) Platelet Count 213 x10^3/uL (140-400) Neutrophils (%) (Auto) 59 % (31-73) Lymphocytes (%) (Auto) 30 % (24-48) Monocytes (%) (Auto) 8 % (0-9) Eosinophils (%) (Auto) 3 % (0-3) Basophils (%) (Auto) 1 % (0-3) Neutrophils # (Auto) 3.5 x10^3uL (1.8-7.7) Lymphocytes # (Auto) 1.8 x10^3/uL (1.0-4.8) Monocytes # (Auto) 0.5 x10^3/uL (0.0-1.1) Eosinophils # (Auto) 0.2 x10^3/uL (0.0-0.7) Basophils # (Auto) 0.0 x10^3/uL (0.0-0.2) Sodium Level 141 mmol/L (136-145) Potassium Level 3.9 mmol/L (3.5-5.1) Chloride Level 110 mmol/L (98-107) Carbon Dioxide Level 20 mmol/L (21-32) Anion Gap 11 (6-14) Blood Urea Nitrogen 17 mg/dL (8-26) Creatinine 1.0 mg/dL (0.7-1.3) Estimated GFR (Cockcroft-Gault) 78.8 Glucose Level 140 mg/dL (70-99) Calcium Level 8.3 mg/dL (8.5-10.1) Test 12/17/17 10:49 12/17/17 14:24 12/17/17 17:06 12/17/17 19:31 Glucose (Fingerstick) 99 mg/dL (70-99) 91 mg/dL (70-99) 244 mg/dL (70-99) 205 mg/dL (70-99) Test 12/18/17 04:35 12/18/17 07:30 White Blood Count 9.4 x10^3/uL (4.0-11.0) Red Blood Count 4.32 x10^6/uL (4.30-5.70) Hemoglobin 13.0 g/dL (13.0-17.5) Hematocrit 38.7 % (39.0-53.0) Mean Corpuscular Volume 90 fL (79-100) Mean Corpuscular Hemoglobin 30 pg (25-35) Mean Corpuscular Hemoglobin Concent 34 g/dL (31-37) Red Cell Distribution Width 14.0 % (11.5-14.5) Platelet Count 256 x10^3/uL (140-400) Neutrophils (%) (Auto) 87 % (31-73) Lymphocytes (%) (Auto) 10 % (24-48) Monocytes (%) (Auto) 3 % (0-9) Eosinophils (%) (Auto) 0 % (0-3) Basophils (%) (Auto) 0 % (0-3) Neutrophils # (Auto) 8.2 x10^3uL (1.8-7.7) Lymphocytes # (Auto) 0.9 x10^3/uL (1.0-4.8) Monocytes # (Auto) 0.3 x10^3/uL (0.0-1.1) Eosinophils # (Auto) 0.0 x10^3/uL (0.0-0.7) Basophils # (Auto) 0.0 x10^3/uL (0.0-0.2) Erythrocyte Sedimentation Rate 23 (0-15) Sodium Level 141 mmol/L (136-145) Potassium Level 3.9 mmol/L (3.5-5.1) Chloride Level 110 mmol/L (98-107) Carbon Dioxide Level 20 mmol/L (21-32) Anion Gap 11 (6-14) Blood Urea Nitrogen 21 mg/dL (8-26) Creatinine 1.1 mg/dL (0.7-1.3) Estimated GFR (Cockcroft-Gault) 70.6 Glucose Level 145 mg/dL (70-99) Calcium Level 8.2 mg/dL (8.5-10.1) Glucose (Fingerstick) 135 mg/dL (70-99) Laboratory Tests Test 12/17/17 14:24 12/17/17 17:06 12/17/17 19:31 12/18/17 04:35 Glucose (Fingerstick) 91 mg/dL (70-99) 244 mg/dL (70-99) 205 mg/dL (70-99) White Blood Count 9.4 x10^3/uL (4.0-11.0) Red Blood Count 4.32 x10^6/uL (4.30-5.70) Hemoglobin 13.0 g/dL (13.0-17.5) Hematocrit 38.7 % (39.0-53.0) Mean Corpuscular Volume 90 fL (79-100) Mean Corpuscular Hemoglobin 30 pg (25-35) Mean Corpuscular Hemoglobin Concent 34 g/dL (31-37) Red Cell Distribution Width 14.0 % (11.5-14.5) Platelet Count 256 x10^3/uL (140-400) Neutrophils (%) (Auto) 87 % (31-73) Lymphocytes (%) (Auto) 10 % (24-48) Monocytes (%) (Auto) 3 % (0-9) Eosinophils (%) (Auto) 0 % (0-3) Basophils (%) (Auto) 0 % (0-3) Neutrophils # (Auto) 8.2 x10^3uL (1.8-7.7) Lymphocytes # (Auto) 0.9 x10^3/uL (1.0-4.8) Monocytes # (Auto) 0.3 x10^3/uL (0.0-1.1) Eosinophils # (Auto) 0.0 x10^3/uL (0.0-0.7) Basophils # (Auto) 0.0 x10^3/uL (0.0-0.2) Erythrocyte Sedimentation Rate 23 (0-15) Sodium Level 141 mmol/L (136-145) Potassium Level 3.9 mmol/L (3.5-5.1) Chloride Level 110 mmol/L (98-107) Carbon Dioxide Level 20 mmol/L (21-32) Anion Gap 11 (6-14) Blood Urea Nitrogen 21 mg/dL (8-26) Creatinine 1.1 mg/dL (0.7-1.3) Estimated GFR (Cockcroft-Gault) 70.6 Glucose Level 145 mg/dL (70-99) Calcium Level 8.2 mg/dL (8.5-10.1) Test 12/18/17 07:30 Glucose (Fingerstick) 135 mg/dL (70-99) Brief Hospital Course Mr. Vicente is a 52 old white male who was admitted on December 11 and stayed almost a week with us for fourth finger tenosynovitis needing I&D 3 times on 12/11,12/14 and 12/17 respectively. Comanage with ID and orthopedics. Cultures are negative. Okay to go by mouth Cipro Doxy with no PT needs. Home today on by mouth antibiotics. Some pain meds I have Rx on chart Also smoking history but was not an issue on the floors. 2 notes today Pt seen and examined consults: ID and ortho Proc; Finger I and D Discharge Information Condition at Discharge: Improved, Stable Disposition/Orders: D/C to Home Scheduled Acetazolamide (Acetazolamide) 250 Mg Tablet, 250 MG PO BID, (Reported) Entered as Reported by: LINETTE FINLEY on 12/11/171556 Last Action: Continued on 12/12/171154 by STEVEN BURNETTE MD Amitriptyline Hcl (Amitriptyline Hcl) 150 Mg Tablet, 1 TAB PO QHS, #30 Ref 1 ( Reported) Entered as Reported by: LINETTE FINLEY on 12/11/171556 Last Action: Converted on 12/12/171154 by STEVEN BURNETTE MD Atorvastatin Calcium (Atorvastatin Calcium) 10 Mg Tablet, 10 MG PO HS for FOR CHOLESTEROL, #30 Ref 0 (Reported) Entered as Reported by: LINETTE FINLEY on 12/11/171556 Last Action: Continued on 12/12/171154 by STEVEN BURNETTE MD Ciprofloxacin Hcl (Cipro) 250 Mg Tablet, 500 MG PO BID for 7 Days, #28 Prescribed by: SYLVIA JUDD on 12/18/17 1145 Cyclobenzaprine Hcl (Cyclobenzaprine Hcl) 10 Mg Tablet, 10 MG PO TID, (Reported) Entered as Reported by: LINETTE FINLEY on 12/11/171556 Last Action: Continued on 12/12/171154 by STEVEN BURNETTE MD Doxycycline Hyclate (Doxycycline Hyclate) 100 Mg Tablet, 100 MG PO BID for 7 Days, #14 Prescribed by: SYLVIA JUDD on 12/18/17 1145 Glipizide (Glipizide) 5 Mg Tablet, 5 MG PO DAILY, (Reported) Entered as Reported by: LINETTE FINLEY on 12/11/171556 Last Action: Continued on 12/12/171154 by STEVEN BURNETTE MD Hydroxyzine Hcl (Hydroxyzine Hcl) 25 Mg Tablet, 25 MG PO TID, (Reported) Entered as Reported by: LINETTE FINLEY on 12/11/171556 Last Action: Converted on 12/12/171154 by STEVEN BURNETTE MD Hydroxyzine Hcl (Hydroxyzine Hcl) 50 Mg Tablet, 50 MG PO QHS, (Reported) Entered as Reported by: LINETTE FINLEY on 12/11/171557 Last Action: Converted on 12/12/171154 by STEVEN BURNETTE MD Levothyroxine Sodium (Levothyroxine Sodium) 100 Mcg Tablet, 1 TAB PO DAILY, #30 Ref 5 (Reported) Entered as Reported by: LINETTE FINLEY on 12/11/171556 Last Action: Continued on 12/12/171154 by STEVEN BURNETTE MD Meloxicam (Meloxicam) 15 Mg Tablet, 15 MG PO DAILY, (Reported) Entered as Reported by: LINETTE FINLEY on 12/11/171556 Last Action: Converted on 12/12/171154 by STEVEN BURNETTE MD Metformin Hcl (Metformin Hcl) 850 Mg Tablet, 850 MG PO BIDWMEALS for ANTI- DIABETIC, Ref 0 (Reported) Entered as Reported by: LINETTE FINLEY on 12/11/171556 Last Action: HELD on 12/12/171154 by STEVEN BURNETTE MD Nph, Human Insulin Isophane (Novolin N) 100 Unit/1 Ml Vial, 40 UNIT SQ BID, ( Reported) Entered as Reported by: LINETTE FINLEY on 12/11/171556 Last Action: Converted on 12/12/171154 by STEVEN BURNETTE MD Potassium Chloride (Potassium Chloride) 10 Meq Tab.sr.24h, 10 MEQ PO TID, ( Reported) Entered as Reported by: LINETTE FINLEY on 12/11/171556 Last Action: HELD on 12/12/171154 by STEVEN BURNETTE MD Scheduled PRN Oxycodone Hcl/Acetaminophen (Oxycodone-Acetaminophen 5-325) 1 Each Tablet, 1 TAB PO PRN Q4HRS PRN for PAIN for 14 Days Prescribed by: SYLVIA JUDD on 12/18/17 1145 Discontinued Medications Atorvastatin Calcium (Atorvastatin Calcium) 10 Mg Tablet, 1 TAB PO DAILY, #90 Ref 3 (Reported) Entered as Reported by: LINETTE FINLEY on 12/11/171556 Last Action: Discontinued on 12/11/172056 by SYLVIA PRICE MD Dec 18, 2017 11:46
[2017-12-18] MEDS ORDERED: DOXYCYCLINE HYCLATE 100 MG TABLET PO SCH (12:00)
[2017-12-18] MEDS ORDERED: CIPROFLOXACIN HCL 250 MG TABLET. PO SCH (12:00)
[2017-12-18] MEDS: NICOTINE POLACRILEX 2MG GUM PACKAGE of 12. BC PRN (13:07)
[2017-12-18] MEDS: oxyCODONE/APAP 5/325 1 TAB TABLET PO PRN (13:07)
[2017-12-18 15:00] VITALS: BP 99/46
--- NOTE | 2017-12-19 17:23 | PDOC4 ---
Operative Note Operative Note Date of surgery: 12/17/2017 Preoperative diagnosis: Right ring finger flexor tenosynovitis Postoperative diagnosis: Same Operative procedure: Irrigation debridement right ring finger Surgeon: Fortunato Anesthesia: Gen. Estimated blood loss: Minimal Complications: None Operative indications: is a 52-year-old male who has undergone 2 previous debridements of his right ring finger for flexor tenosynovitis. Each time he had recovered somewhat but seemed to worsen after a couple of days. That repeated as of this time despite being on antibiotics and I went over with him the need due to bacteria multiplying and causing recurrent symptoms the possibility of recurrent washout and debridement. All his questions were answered and he wishes to proceed with surgical evaluation and treatment. Operative text: Patient was identified procedure verified patient placed in the supine position on the operating table. After adequate amounts of general anesthesia were administered the right upper extremity was prepped and draped in standard sterile fashion and after timeout was performed patient procedure identified and verified debridement of skin and subcutaneous tissue tendon sheath were carried out no bone or joint was involved. After removal of any devitalized tissue and intra-articular pain catheter was threaded up the tendon sheath and used to thoroughly irrigate with a syringe and normal saline solution under some pressure along the entire involved area of the tendon sheath from distal interphalangeal joint to the distal incision over the proximal phalanx through the tendon sheath into the palm. There was return of some cloudy drainage at first this cleared up eventually after further irrigation there was more cloudy drainage distally in the tendon sheath beyond the incision is well that was likewise cleared up. The tendons were able to glide without difficulty even with the intra-articular catheter placed as a drain. Sterile dressings were applied he was returned to recovery room in stable condition having tolerated procedure well MIRELA SALCIDO MD Dec 19, 2017 17:23
== END 2017-12-18 18:40 | disposition home or self-care (01) | DRG 855 ==
LOC: ER 11:19 → 5 SOUTH 13:07
PROVIDERS: ADMIT Internal Medicine; ATTEND Internal Medicine
PROC: 0MB70ZZ Excision of Right Hand Bursa and Ligament, Open Approach (ICD-10-PCS; 2017-12-11)
PROC: 0MB70ZZ Excision of Right Hand Bursa and Ligament, Open Approach (ICD-10-PCS; principal; 2017-12-14 16:35)
PROC: 0MB70ZZ Excision of Right Hand Bursa and Ligament, Open Approach (ICD-10-PCS; 2017-12-17)
DX: A41.9 Sepsis, unspecified organism (principal); L03.011 Cellulitis of right finger; E87.6 Hypokalemia; B34.9 Viral infection, unspecified; E03.9 Hypothyroidism, unspecified; Z79.899 Other long term (current) drug therapy; E11.649 Type 2 diabetes mellitus with hypoglycemia without coma; G25.81 Restless legs syndrome; F17.210 Nicotine dependence, cigarettes, uncomplicated; G71.00 Muscular dystrophy, unspecified; M65.9 Synovitis and tenosynovitis, unspecified; Z82.49 Family history of ischemic heart disease and other diseases of the circulatory system; Z86.14 Personal history of Methicillin resistant Staphylococcus aureus infection; Z87.440 Personal history of urinary (tract) infections
CPT/HCPCS: 36415; 73130; 80048; 82962; 83605; 85007; 85025; 85651; 87040; 87071; 87075; 90471; 90756; 96365; 96366; 96368; 96375; 96376; A7015; J0780; J1100; J1170; J1644; J1815; J1885; J2001; J2250; J2270; J2405; J2543; J2704; J3010; J3370; J7030; J7040; J7120; Q0177; 99285-25; A4461; Q2035